=== PATIENT | female | born 1985 | race African-American/Black ===

== ENCOUNTER 2017-02-09 19:24 | Emergency (ER) | payer MEDICARE, MEDICAID ==
[2017-02-09] MEDS ORDERED: ASPIRIN 81 MG TABLET, CHEWABLE PO ONE (20:06)
--- NOTE | 2017-02-09 20:06 | ER Document Report ---
ED Medical Screen (RME) - General Stated Complaint: CHEST PAIN Time seen by provider: 20:04 Mode of Arrival: Wheelchair Information source: Patient Notes: 31-year-old female presents to ED for chest pain with numbness down her left arm since 6:15 tonight. She states she also has some shortness of breath and dizziness. Has a history of angina and anxiety. Last menstrual period 2016 I have greeted and performed a rapid initial assessment of this patient. A comprehensive ED assessment and evaluation of the patient, analysis of test results and completion of medical decision making process will be conducted by an additional ED providers. TRAVEL OUTSIDE OF THE [place] IN LAST 30 DAYS: No - Related Data Allergies/Adverse Reactions: zolpidem tartrate [From Ambien] Allergy (Mild, Verified 07/18/15 15:21) Abnormal behavior ciprofloxacin [From Cipro] Allergy (Verified 07/18/15 15:21) ciprofloxacin HCl [From Cipro] Allergy (Verified 07/18/15 15:21) citalopram [Citalopram] Allergy (Verified 07/18/15 15:21) escitalopram oxalate [From Lexapro] Allergy (Verified 07/18/15 15:21) lamotrigine [From Lamictal] Allergy (Verified 07/18/15 15:21) nitrofurantoin [From Macrobid] Allergy (Verified 07/18/15 15:21) nitrofurantoin macrocrystalline [From Macrobid] Allergy (Verified 07/18/15 15:21 ) Quinolones Allergy (Verified 07/18/15 15:21) ondansetron HCl [From Zofran] Adverse Reaction (Verified 07/18/15 15:21) CATS Allergy (Intermediate, Uncoded 07/18/15 15:21) SQUASH Allergy (Unknown, Uncoded 07/18/15 15:21) serotonin Allergy (Uncoded 07/18/15 15:21) Past Medical History - Past Medical History Cardiac Medical History: Reports: Hx Hypertension Pulmonary Medical History: Reports: Hx Asthma Neurological Medical History: Reports: Hx Migraine, Hx Seizures Endocrine Medical History: Reports: Hx Diabetes Mellitus Type 2 Renal/ Medical History: Reports: Hx Ovarian Cysts GI Medical History: Reports: Hx Gastroesophageal Reflux Disease Musculoskeltal Medical History: Reports Hx Arthritis, Reports Hx Musculoskeletal Trauma Psychiatric Medical History: Reports: Hx Anxiety, Hx Attention Deficit Hyperactivity Disorder, Hx Bipolar Disorder, Hx Depression, Hx Post Traumatic Stress Disorder Past Surgical History: Reports: Hx Abdominal Surgery - LAPARASCOPY X2, Hx Section - x2, Hx Gynecologic Surgery - 5 D&C ([place]IS[place]AGES), Hx Oral Surgery - Jaw for TMJ and wisdom teeth, Hx Tubal Ligation - Immunizations Immunizations up to date: Yes Hx Diphtheria, Pertussis, Tetanus Vaccination: Yes - MED
[2017-02-09 20:41] LABS: ABSOLUTE BASOPHILS # (AUTO) 0.1 10^3/uL (0.0-0.2); ABSOLUTE EOSINOPHILS # (AUTO) 0.1 10^3/uL (0.0-0.6); ABSOLUTE LYMPHOCYTES (AUTO) 2.3 10^3/uL (0.5-4.7); ABSOLUTE MONOCYTES (AUTO) 0.5 10^3/uL (0.1-1.4); ABSOLUTE NEUT (AUTO) 4.4 10^3/uL (1.7-8.2); BASOPHILS % (AUTO) 1.2 % (0-2); EOSINOPHILS % (AUTO) 1.6 % (0-6); HEMATOCRIT 35.3 % (36.0-47.0); HEMOGLOBIN 11.5 g/dL (12.0-15.5); HGB HCT DIFFERENCE -0.8; LYMPHOCYTES % (AUTO) 31.2 % (13-45); MEAN CORPUSCULAR HEMOGLOBIN 27.8 pg (27.0-33.4); MEAN CORPUSCULAR HGB CONC 32.7 g/dL (32.0-36.0); MEAN CORPUSCULAR VOLUME 85 fl (80-97); MONOCYTES % (AUTO) 6.2 % (3-13); RED BLOOD COUNT 4.15 10^6/uL (3.72-5.28); RED CELL DISTRIBUTION WIDTH 13.9 % (11.5-14.0); SEGMENTED NEUTROPHILS % (AUTO) 59.8 % (42-78); WHITE BLOOD COUNT 7.4 10^3/uL (4.0-10.5)
[2017-02-09 20:53] LABS: ALANINE AMINOTRANSFERASE 30 U/L (9-52); ALBUMIN 4.8 g/dL (3.5-5.0); ALKALINE PHOSPHATASE 65 U/L (38-126); ANION GAP 14 (5-19); ASPARTATE AMINO TRANSFERASE 22 U/L (14-36); BILIRUBIN,DIRECT 0.1 mg/dL (0.0-0.4); BILIRUBIN,TOTAL 0.2 mg/dL (0.2-1.3); BLOOD UREA NITROGEN 9 mg/dL (7-20); CALCIUM 10.7 mg/dL (8.4-10.2); CARBON DIOXIDE 27 mmol/L (22-30); CHLORIDE 101 mmol/L (98-107); CREATINE KINASE 74 U/L (30-135); CREATININE RESULT 0.52 mg/dL (0.52-1.25); GLUCOSE 104 mg/dL (75-110); MAGNESIUM 2.1 mg/dL (1.6-2.3); POTASSIUM 4.4 mmol/L (3.6-5.0); SODIUM 142.2 mmol/L (137-145); TOTAL PROTEIN 7.6 g/dL (6.3-8.2)
[2017-02-09 20:54] LABS: APPEARANCE,URINE CLOUDY; BILIRUBIN,URINE NEGATIVE (NEGATIVE); GLUCOSE, URINE NEGATIVE (NEGATIVE); KETONES,URINE NEGATIVE (NEGATIVE); LEUKOCYTE ESTERASE,URINE NEGATIVE (NEGATIVE); NITRITE,URINE NEGATIVE (NEGATIVE); PROTEIN,URINE NEGATIVE (NEGATIVE); URINE SPECIFIC GRAVITY 1.009; UROBILINOGEN,URINE NEGATIVE mg/dL (<2.0)
--- NOTE | 2017-02-09 20:57 | EKG REPORT ---
SEVERITY:- NORMAL ECG - SINUS RHYTHM : Confirmed by: Michele Robert 09-Feb-2017 20:57:09
[2017-02-09 21:06] LABS: URINE BARBITURATES SCREEN NEGATIVE; URINE METHADONE SCREEN NEGATIVE; URINE OPIATES LOW NEGATIVE; URINE PHENCYCLIDINE SCREEN NEGATIVE
[2017-02-09 21:07] LABS: CREATINE KINASE MB < 0.22 ng/mL (<4.55); TROPONIN I < 0.012 ng/mL
--- NOTE | 2017-02-09 22:42 | ER Document Report ---
ED General - General Chief Complaint: Chest Pain Stated Complaint: CHEST PAIN Mode of Arrival: Wheelchair Notes: Patient is a 30-year-old female with frequent recurring chest pain presents with concerns of left-sided chest pain and pain in her left arm. Does describe the pain as a dull, throbbing, constant pain. Nothing improves her pain. States moving the left arm worsens the pain in both her arm and chest. States this feels very similar to prior episodes of chest pain and diagnosed as benign recurrent chest discomfort. She has not seen her primary care doctor regarding today's concerns. She denies any associated nausea, vomiting, diaphoresis or shortness of breath. No history of DVT or pulmonary embolus. She does not use estrogen. TRAVEL OUTSIDE OF THE [place] IN LAST 30 DAYS: No - Related Data Allergies/Adverse Reactions: zolpidem tartrate [From Ambien] Allergy (Mild, Verified 07/18/15 15:21) Abnormal behavior ciprofloxacin [From Cipro] Allergy (Verified 07/18/15 15:21) ciprofloxacin HCl [From Cipro] Allergy (Verified 07/18/15 15:21) citalopram [Citalopram] Allergy (Verified 07/18/15 15:21) escitalopram oxalate [From Lexapro] Allergy (Verified 07/18/15 15:21) lamotrigine [From Lamictal] Allergy (Verified 07/18/15 15:21) nitrofurantoin [From Macrobid] Allergy (Verified 07/18/15 15:21) nitrofurantoin macrocrystalline [From Macrobid] Allergy (Verified 07/18/15 15:21 ) Quinolones Allergy (Verified 07/18/15 15:21) ondansetron HCl [From Zofran] Adverse Reaction (Verified 07/18/15 15:21) CATS Allergy (Intermediate, Uncoded 07/18/15 15:21) SQUASH Allergy (Unknown, Uncoded 07/18/15 15:21) serotonin Allergy (Uncoded 07/18/15 15:21) Past Medical History - General Information source: Patient - Social History Smoking Status: Never Smoker Chew tobacco use (# tins/day): No Frequency of alcohol use: Occasional Drug Abuse: None Lives with: Spouse/Significant other Family History: Arthritis, CAD, CVA, DM, Hyperlipidemia, Hypertension, Malignancy, Other - mental health issues Patient has suicidal ideation: No Patient has homicidal ideation: No - Past Medical History Cardiac Medical History: Reports: Hx Hypertension Pulmonary Medical History: Reports: Hx Asthma Neurological Medical History: Reports: Hx Migraine, Hx Seizures Endocrine Medical History: Reports: Hx Diabetes Mellitus Type 2 Renal/ Medical History: Reports: Hx Ovarian Cysts. Denies: Hx Peritoneal Dialysis GI Medical History: Reports: Hx Gastroesophageal Reflux Disease Musculoskeltal Medical History: Reports Hx Arthritis, Reports Hx Musculoskeletal Trauma Psychiatric Medical History: Reports: Hx Anxiety, Hx Attention Deficit Hyperactivity Disorder, Hx Bipolar Disorder, Hx Depression, Hx Post Traumatic Stress Disorder Past Surgical History: Reports: Hx Abdominal Surgery - LAPARASCOPY X2, Hx Section - x2, Hx Gynecologic Surgery - 5 D&C ([place]IS[place]), Hx Oral Surgery - Jaw for TMJ and wisdom teeth, Hx Tubal Ligation - Immunizations Immunizations up to date: Yes Hx Diphtheria, Pertussis, Tetanus Vaccination: Yes - UTD Hx Pneumococcal Vaccination: 11/13/13 Review of Systems - Review of Systems Notes: Constitutional: Negative for fever. HENT: Negative for sore throat. Eyes: Negative for visual changes. Cardiovascular: Positive for chest pain. Respiratory: Negative for shortness of breath. Gastrointestinal: Negative for abdominal pain, vomiting or diarrhea. Genitourinary: Negative for dysuria. Musculoskeletal: Negative for back pain. Skin: Negative for rash. Neurological: Negative for headaches, weakness or numbness. 10 point ROS negative except as marked above and in HPI. Physical Exam - Vital signs Vitals: Resp 17 02/09/17 21:04 Interpretation: Normal Notes: PHYSICAL EXAMINATION: GENERAL: Well-appearing, well-nourished and in no acute distress. HEAD: Atraumatic, normocephalic. EYES: Pupils equal round and reactive to light, extraocular movements intact, sclera anicteric, conjunctiva are normal. ENT: nares patent, oropharynx clear without exudates. Moist mucous membranes. NECK: Normal range of motion, supple without lymphadenopathy LUNGS: Breath sounds clear to auscultation bilaterally and equal. No wheezes rales or rhonchi. HEART: Regular rate and rhythm without murmurs ABDOMEN: Soft, nontender, normoactive bowel sounds. No guarding, no rebound. No masses appreciated. Chest wall: Pain on palpation of the left central chest wall EXTREMITIES: Chest wall pain and left arm pain is reproduced by abduction and internal rotation of the left extremity NEUROLOGICAL: No focal neurological deficits. Moves all extremities spontaneously and on command. PSYCH: Normal mood, normal affect. SKIN: Warm, Dry, normal turgor, no rashes or lesions noted. Course - Re-evaluation Re-evalutation: 02/09/17 22:39 Presentation of chest pain in an otherwise well appearing patient. Low clinical suspicion for ACS given clinical history, exam, EKG without ST elevations or depressions, and negative troponin. Chest pain is reproducible on exam and patient has had very similar presentations in the past on multiple occasions. HEART score less than or equal to 3. PE also seems unlikely given clinical history, absence of tachycardia or dyspnea. Patient is PERC criteria negative. CXR without evidence of pneumothorax or pneumonia. No widened mediastinum. Aortic dissection also seems unlikely given history, symmetric pulses, CXR, and vitals. HEART Score: History:0 EC Age:0 Risk Factors:0 Troponin:0 Total: 0 Final assessment: Chest pain in a patient without evidence of cardiac or other serious etiology on workup today. I discussed with patient that, based on their age, risk factors and emergency department testing today, the likelihood that their symptoms are related to a heart attack is very low (estimated risk of heart attack or over the next 30 days of less than 1%). The patient demonstrates decision making capacity and has verbalized an understanding of these risks to me. Based on this, the patient has chosen to follow-up as an outpatient. Usual chest pain return precautions reviewed. The patient states understanding and agreement with this plan. - Vital Signs Vital signs: Temp Pulse Resp BP Pulse Ox 97 20 108/71 98 02/09/17 22:50 02/09/17 22:50 02/09/17 22:50 02/09/17 22:50 - Laboratory Result Diagrams: 02/09/17 20:15 02/09/17 20:15 Laboratory results interpreted by me: 02/09/17 02/09/17 20:15 20:15 Hgb 11.5 L Hct 35.3 L Calcium 10.7 H - Diagnostic Test Radiology reviewed: Image reviewed, Reports reviewed Radiology results interpreted by me: 02/09/17 22:41 Chest x-ray: No acute infiltrate - EKG Interpretation by Me Additional EKG results interpreted by me: 02/09/17 22:41 NSR. Rate 92. Qtc 431. No ST elevations or depressions. Discharge - Discharge Clinical Impression: Chest pain Qualifiers: Chest pain type: unspecified Qualified Code(s): R07.9 - Chest pain, unspecified Condition: Good Disposition: HOME, SELF-CARE Additional Instructions: You were seen today for chest pain. The exact cause of your pain is unclear. However, based on your cardiac enzyme testing, chest x-ray, and EKG it does not appear that it is from an immediately life-threatening cause at this time. Although your testing here is normal is critical that you follow-up with your primary care physician for continued evaluation of this chest pain and possible stress testing. I recommended you see your physician within the next 24-48 hours to be evaluated for consideration of a stress test. Please return to emergency department immediately if you have worsening of your chest pain, shortness of breath, vomiting, become unable to exert yourself due to pain or difficulty breathing, you pass out, or have any pain that radiates into your arms, jaw, or back. Please also return if you have any additional symptoms that are concerning to you.
[2017-02-09 22:52] VITALS: BP 108/71
== END 2017-02-09 22:52 | disposition home or self-care (01) ==
LOC: ER 19:24
DX: R07.89 Other chest pain (principal); M79.602 Pain in left arm; I10 Essential (primary) hypertension; J45.909 Unspecified asthma, uncomplicated; E11.9 Type 2 diabetes mellitus without complications; Z82.49 Family history of ischemic heart disease and other diseases of the circulatory system; Z88.8 Allergy status to other drugs, medicaments and biological substances; Z88.1 Allergy status to other antibiotic agents; Z91.013 Allergy to seafood; Z91.048 Other nonmedicinal substance allergy status
CPT/HCPCS: 93005; 99285; 36415; 82553; 82550; 83735; 84703; 85025; 80053; 81001; 84484; 80307; 71020; 93010; A9270

== ENCOUNTER 2017-03-10 18:47 | Emergency (ER) | payer MEDICARE, MEDICAID ==
--- NOTE | 2017-03-10 19:56 | ER Document Report ---
ED Medical Screen (RME) - General TRAVEL OUTSIDE OF THE [place] IN LAST 30 DAYS: No - General Chief Complaint: Jaw Pain Stated Complaint: JAW PAIN - Related Data Allergies/Adverse Reactions: zolpidem tartrate [From Ambien] Allergy (Mild, Verified 03/10/17 19:11) Abnormal behavior ciprofloxacin [From Cipro] Allergy (Verified 03/10/17 19:11) ciprofloxacin HCl [From Cipro] Allergy (Verified 03/10/17 19:11) citalopram [Citalopram] Allergy (Verified 03/10/17 19:11) escitalopram oxalate [From Lexapro] Allergy (Verified 03/10/17 19:11) lamotrigine [From Lamictal] Allergy (Verified 03/10/17 19:11) nitrofurantoin [From Macrobid] Allergy (Verified 03/10/17 19:11) nitrofurantoin macrocrystalline [From Macrobid] Allergy (Verified 03/10/17 19:11 ) Quinolones Allergy (Verified 03/10/17 19:11) ondansetron HCl [From Zofran] Adverse Reaction (Verified 03/10/17 19:11) CATS Allergy (Intermediate, Uncoded 03/10/17 19:11) SQUASH Allergy (Unknown, Uncoded 03/10/17 19:11) serotonin Allergy (Uncoded 03/10/17 19:11) Past Medical History - Social History Chew tobacco use (# tins/day): No Frequency of alcohol use: None Drug Abuse: None - Past Medical History Cardiac Medical History: Reports: Hx Hypertension Pulmonary Medical History: Reports: Hx Asthma Neurological Medical History: Reports: Hx Migraine, Hx Seizures Endocrine Medical History: Reports: Hx Diabetes Mellitus Type 2 Renal/ Medical History: Reports: Hx Ovarian Cysts. Denies: Hx Peritoneal Dialysis GI Medical History: Reports: Hx Gastroesophageal Reflux Disease Musculoskeltal Medical History: Reports Hx Arthritis, Reports Hx Musculoskeletal Trauma Psychiatric Medical History: Reports: Hx Anxiety, Hx Attention Deficit Hyperactivity Disorder, Hx Bipolar Disorder, Hx Depression, Hx Post Traumatic Stress Disorder Past Surgical History: Reports: Hx Abdominal Surgery - LAPARASCOPY X2, Hx Section - x2, Hx Gynecologic Surgery - 5 D&C ([place]), Hx Oral Surgery - Jaw for TMJ and wisdom teeth, Hx Tubal Ligation - Immunizations Immunizations up to date: Yes Hx Diphtheria, Pertussis, Tetanus Vaccination: Yes - UTD Course - Re-evaluation Re-evalutation: 03/10/17 20:00 Patient presents emergency Department chief complaint of clenched jaw. She says she is unable to open her mouth and her significant other speaks for her. Said she has recurrent syncopal events and lastly she fell onto her face and he found her in the room. She has a little bit a contusion to left forehead. 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 He says she's been drinking but sucking it through her teeth. Patient also with a history of bipolar multiple allergies. She is awake alert with a GCS of 15 all communication is through the she is maintaining her own airway without any difficulty T 30 gather and she refuses to open them any further. She does take a drink and sucking are 3 teeth. There is no bilateral tenderness deformity or obvious dislocation a small contusion to her left forehead no neurological deficits heart lungs and abdomen is soft. At this time the patient is maintaining her own airway because of the syncopal event will work her up for syncope CT her head and her neck and her facial area. She's getting into bed and the back for further evaluation and disposition. I personally performed the services described in the documentation reviewed the documentation recorded by the scribe in my presence and it accurately incompletely records my words and actions (NISHA FISH) - Vital Signs Vital signs: Temp Pulse Resp BP Pulse Ox 91 16 121/71 98 03/10/17 19:11 03/10/17 19:11 03/10/17 19:11 03/10/17 19:11
[2017-03-10] MEDS ORDERED: DIPHENHYDRAMINE HCL 50 MG/ML VIAL IV ONE (21:10)
[2017-03-10] MEDS ORDERED: DIAZEPAM INJ 10 MG/2 ML DISP.SYRIN IV ONE (21:10)
--- NOTE | 2017-03-10 21:12 | ER Document Report ---
ED General - General Chief Complaint: Jaw Pain Stated Complaint: JAW PAIN Time seen by provider: 21:11 Notes: Patient is a 31-year-old female that comes emergency department for chief complaint of pain in her jaw on the left side extending up to her hindu with inability to open her jaw. Patient states she on prior to arrival and has been having a sharp pain and inability to open her jaw since that time. Patient states this happened about a year ago and has happened multiple times in the past. States she sees a dentist and they discussed TMJ surgery for her because of this but no procedures have been performed yet. Patient denies trauma to the area, significant other does state that patient had a syncopal event yesterday where she was standing and suddenly fell on the ground, she was able to be aroused and was acting normally the rest of the night and until today. He states that she has had syncopal events in the past when she becomes stressed and she was upset at the time. No fevers, no other symptoms reported. TRAVEL OUTSIDE OF THE [place] IN LAST 30 DAYS: No - Related Data Allergies/Adverse Reactions: zolpidem tartrate [From Ambien] Allergy (Mild, Verified 03/10/17 19:11) Abnormal behavior ciprofloxacin [From Cipro] Allergy (Verified 03/10/17 19:11) ciprofloxacin HCl [From Cipro] Allergy (Verified 03/10/17 19:11) citalopram [Citalopram] Allergy (Verified 03/10/17 19:11) escitalopram oxalate [From Lexapro] Allergy (Verified 03/10/17 19:11) lamotrigine [From Lamictal] Allergy (Verified 03/10/17 19:11) nitrofurantoin [From Macrobid] Allergy (Verified 03/10/17 19:11) nitrofurantoin macrocrystalline [From Macrobid] Allergy (Verified 03/10/17 19:11 ) Quinolones Allergy (Verified 03/10/17 19:11) ondansetron HCl [From Zofran] Adverse Reaction (Verified 03/10/17 19:11) CATS Allergy (Intermediate, Uncoded 03/10/17 19:11) SQUASH Allergy (Unknown, Uncoded 03/10/17 19:11) serotonin Allergy (Uncoded 03/10/17 19:11) Past Medical History - General Information source: Patient - Social History Smoking Status: Never Smoker Chew tobacco use (# tins/day): No Frequency of alcohol use: None Drug Abuse: None Lives with: Family Family History: Arthritis, CAD, CVA, DM, Hyperlipidemia, Hypertension, Malignancy, Other - mental health issues Patient has suicidal ideation: No Patient has homicidal ideation: No - Past Medical History Cardiac Medical History: Reports: Hx Hypertension Pulmonary Medical History: Reports: Hx Asthma Neurological Medical History: Reports: Hx Migraine, Hx Seizures Endocrine Medical History: Reports: Hx Diabetes Mellitus Type 2 Renal/ Medical History: Reports: Hx Ovarian Cysts. Denies: Hx Peritoneal Dialysis GI Medical History: Reports: Hx Gastroesophageal Reflux Disease Musculoskeltal Medical History: Reports Hx Arthritis, Reports Hx Musculoskeletal Trauma Psychiatric Medical History: Reports: Hx Anxiety, Hx Attention Deficit Hyperactivity Disorder, Hx Bipolar Disorder, Hx Depression, Hx Post Traumatic Stress Disorder Past Surgical History: Reports: Hx Abdominal Surgery - LAPARASCOPY X2, Hx Section - x2, Hx Gynecologic Surgery - 5 D&C ([place]IS[place]), Hx Oral Surgery - Jaw for TMJ and wisdom teeth, Hx Tubal Ligation - Immunizations Immunizations up to date: Yes Hx Diphtheria, Pertussis, Tetanus Vaccination: Yes - UTD Hx Pneumococcal Vaccination: 11/13/13 Review of Systems - Review of Systems Constitutional: No symptoms reported EENT: See HPI Cardiovascular: No symptoms reported Respiratory: No symptoms reported Gastrointestinal: No symptoms reported Genitourinary: No symptoms reported Female Genitourinary: No symptoms reported Musculoskeletal: No symptoms reported Skin: No symptoms reported Hematologic/Lymphatic: No symptoms reported Neurological/Psychological: No symptoms reported Physical Exam - Vital signs Vitals: Pulse Resp BP Pulse Ox 91 16 121/71 98 03/10/17 19:11 03/10/17 19:11 03/10/17 19:11 03/10/17 19:11 Interpretation: Normal - General General appearance: Anxious In distress: Moderate - Patient not able to open her jaw, appears to be in some pain, appears to be slightly anxious - HEENT Head: Normocephalic, Atraumatic Eyes: Normal Conjunctiva: Normal Extraocular movements intact: Yes Eyelashes: Normal Pupils: PERRL Sinus: Normal Nasal: Normal Mouth/Lips: Other - Tenderness over the left TMJ and extending down into the mastication muscles on the left side of the jaw. No abnormal heat, erythema, or other abnormality noted to the area Mucous membranes: Normal Pharynx: Normal - Respiratory Respiratory status: No respiratory distress Chest status: Nontender Breath sounds: Normal Chest palpation: Normal - Cardiovascular Rhythm: Regular Heart sounds: Normal auscultation Murmur: No - Abdominal Inspection: Normal Distension: No distension Bowel sounds: Normal Tenderness: Nontender Organomegaly: No organomegaly - Back Back: Normal, Nontender - Extremities General upper extremity: Normal inspection, Nontender, Normal color, Normal ROM , Normal temperature General lower extremity: Normal inspection, Nontender, Normal color, Normal ROM , Normal temperature, Normal weight bearing. No: Coty's sign - Neurological Neuro grossly intact: Yes Cognition: Normal Orientation: AAOx4 Jovon Coma Scale Eye Opening: Spontaneous [place] Coma Scale Verbal: Oriented [place] Coma Scale Motor: Obeys Commands Jovon Coma Scale Total: 15 Speech: Normal Motor strength normal: LUE, RUE, LLE, RLE Sensory: Normal - Psychological Associated symptoms: Anxious - Skin Skin Temperature: Warm Skin Moisture: Dry Skin Color: Normal Course - Re-evaluation Re-evalutation: Patient very difficult to get IV access on, has very small peripheral veins, neck folds. Declining additional poking including for labs. Initial medications given IM. Patient with no relief despite these medications. Eventually able to get a small IV, began IV medications, after IV medications patient did begin to improve, she is now able to speak but can still barely open her mouth. On reevaluation patient again improved minimally. Patient states she feels she is improving, pain is much reduced, she feels much better. Review of previous records show that patient has been here for the same multiple times, she has required multiple doses of medications including Valium and Dilaudid before improving enough to go home, patient confirms that after this and going home she has been much improved, patient has not had this in over a year. 03/11/17 Patient reevaluated again, she can now open her jaw about 1.5 cm, she is talking without pain, she is smiling and states she feels much better. Patient able to take a pill, able to drink, states she is ready to go home at this point. Referring to oral maxillary facial surgery, recommended she follow-up with him very closely, providing with Valium for muscle spasm at home, discussed return precautions, patient and family state understanding and agreement. - Vital Signs Vital signs: Temp Pulse Resp BP Pulse Ox 97.6 F 91 22 H 115/71 100 03/11/17 02:00 03/10/17 19:11 03/11/17 01:01 03/11/17 01:01 03/11/17 01:01 Discharge - Discharge Clinical Impression: Jaw pain, Muscle spasm Temporomandibular joint pain Qualifiers: Laterality: left Qualified Code(s): M26.622 - Arthralgia of left temporomandibular joint Condition: Stable Disposition: HOME, SELF-CARE Additional Instructions: Take the Valium as prescribed as a muscle relaxer for your jaw. I recommend fluids and drinking initially. Do not chew until your jaw muscles are completely relaxed, afterwards start on soft diet, avoid gum. Follow-up closely with oral maxillary facial surgery referral. Return to emergency department for concerning symptoms. Prescriptions: Acetaminophen with Codeine [Tylenol #3 Tablet] 1 each PO Q4HP PRN #15 tablet PRN Reason: Diazepam [Valium 5 mg Tablet] 1 - 2 tab PO TID #20 tablet Referrals: FAMILIA BERMUDEZ D[facility] [ACTIVE STAFF] - 03/13/17
[2017-03-10 21:16] LABS: APPEARANCE,URINE CLEAR; BILIRUBIN,URINE NEGATIVE (NEGATIVE); GLUCOSE, URINE NEGATIVE (NEGATIVE); KETONES,URINE NEGATIVE (NEGATIVE); LEUKOCYTE ESTERASE,URINE NEGATIVE (NEGATIVE); NITRITE,URINE NEGATIVE (NEGATIVE); PROTEIN,URINE NEGATIVE (NEGATIVE); URINE SPECIFIC GRAVITY 1.008; UROBILINOGEN,URINE NEGATIVE mg/dL (<2.0)
[2017-03-10] MEDS ORDERED: DIPHENHYDRAMINE HCL 50 MG CAPSULE PO ONE (22:28)
[2017-03-10] MEDS ORDERED: DIAZEPAM INJ 10 MG/2 ML DISP.SYRIN IM ONE (22:28)
[2017-03-10] MEDS ORDERED: DIPHENHYDRAMINE HCL 50 MG/ML VIAL IM ONE (22:49)
[2017-03-10] MEDS ORDERED: HYDROMORPHONE HCL INJ/PF 2 MG/ML AMPULE IM ONE (23:18)
[2017-03-11] MEDS ORDERED: DIAZEPAM INJ 10 MG/2 ML DISP.SYRIN IV ONE ×2 (00:18→02:23)
[2017-03-11] MEDS ORDERED: HYDROMORPHONE HCL INJ/PF 2 MG/ML AMPULE IV ONE (01:05)
[2017-03-11] MEDS ORDERED: DIPHENHYDRAMINE HCL 50 MG/ML VIAL IV ONE (01:26)
[2017-03-11] MEDS ORDERED: PROMETHAZINE HCL 25 MG TABLET PO ONE (03:48)
[2017-03-11 04:13] VITALS: BP 110/76
--- NOTE | 2017-03-11 09:46 | EKG REPORT ---
SEVERITY:- NORMAL ECG - SINUS RHYTHM : Confirmed by: Michele Robert 11-Mar-2017 09:45:20
== END 2017-03-11 04:10 | disposition home or self-care (01) ==
LOC: ER 18:47
DX: M26.622 Arthralgia of left temporomandibular joint (principal); M62.838 Other muscle spasm; R55 Syncope and collapse; F41.9 Anxiety disorder, unspecified; E11.9 Type 2 diabetes mellitus without complications; I10 Essential (primary) hypertension; J45.909 Unspecified asthma, uncomplicated; Z88.8 Allergy status to other drugs, medicaments and biological substances; Z88.1 Allergy status to other antibiotic agents; Z91.018 Allergy to other foods; Z91.048 Other nonmedicinal substance allergy status
CPT/HCPCS: 93005; 96376; 99284; 96372; 96374; 96375; 81025; 81001; 71010; 70450; 70486; 72125; 93010; J3360 ×2; J1200; J1170 ×2; A9270

== ENCOUNTER 2017-04-21 19:33 | Emergency (ER) | payer MEDICARE, MEDICAID ==
[2017-04-21] MEDS ORDERED: DIPHENHYDRAMINE HCL 50 MG CAPSULE PO ONE (20:26)
[2017-04-21] MEDS ORDERED: PROCHLORPERAZINE MALEATE 10 MG TABLET PO ONE (20:26)
[2017-04-21] MEDS ORDERED: KETOROLAC TROMETHAMINE 60 MG/2 ML SDV IM ONE (20:27)
--- NOTE | 2017-04-21 20:29 | ER Document Report ---
ED Medical Screen (RME) - General Chief Complaint: Headache Stated Complaint: SEVERE HEAD PAIN Time Seen by Provider: 04/21/17 20:19 Notes: 32-year-old female patient long history of migraine headaches, reports onset at 6:50 PM today of severe head pain with loss of sight, sound, and smell. The loss of the since this has occurred twice since the headache started. At this time she has photophobia. She states this is worse than and not like her normal migraine. Other migraine visits have also been documented as stating the symptoms were not like her normal migraine. I have greeted and performed a rapid initial assessment of this patient. A comprehensive ED assessment and evaluation of the patient, analysis of test results and completion of the medical decision making process will be conducted by additional ED providers. TRAVEL OUTSIDE OF THE [place] IN LAST 30 DAYS: No - Related Data Allergies/Adverse Reactions: zolpidem tartrate [From Ambien] Allergy (Mild, Verified 03/10/17 19:11) Abnormal behavior ciprofloxacin [From Cipro] Allergy (Verified 03/10/17 19:11) ciprofloxacin HCl [From Cipro] Allergy (Verified 03/10/17 19:11) citalopram [Citalopram] Allergy (Verified 03/10/17 19:11) escitalopram oxalate [From Lexapro] Allergy (Verified 03/10/17 19:11) lamotrigine [From Lamictal] Allergy (Verified 03/10/17 19:11) nitrofurantoin [From Macrobid] Allergy (Verified 03/10/17 19:11) nitrofurantoin macrocrystalline [From Macrobid] Allergy (Verified 03/10/17 19:11 ) Quinolones Allergy (Verified 03/10/17 19:11) ondansetron HCl [From Zofran] Adverse Reaction (Verified 03/10/17 19:11) CATS Allergy (Intermediate, Uncoded 03/10/17 19:11) SQUASH Allergy (Unknown, Uncoded 03/10/17 19:11) serotonin Allergy (Uncoded 03/10/17 19:11) Past Medical History - Social History Chew tobacco use (# tins/day): No Frequency of alcohol use: Rare Drug Abuse: None - Past Medical History Cardiac Medical History: Reports: Hx Hypertension Pulmonary Medical History: Reports: Hx Asthma Neurological Medical History: Reports: Hx Migraine, Hx Seizures Endocrine Medical History: Reports: Hx Diabetes Mellitus Type 2 Renal/ Medical History: Reports: Hx Ovarian Cysts. Denies: Hx Peritoneal Dialysis GI Medical History: Reports: Hx Gastroesophageal Reflux Disease Musculoskeltal Medical History: Reports Hx Arthritis, Reports Hx Musculoskeletal Trauma Psychiatric Medical History: Reports: Hx Anxiety, Hx Attention Deficit Hyperactivity Disorder, Hx Bipolar Disorder, Hx Depression, Hx Post Traumatic Stress Disorder Past Surgical History: Reports: Hx Abdominal Surgery - LAPARASCOPY X2, Hx Section - x2, Hx Gynecologic Surgery - 5 D&C (MISCARRIAGES), Hx Oral Surgery - Jaw for TMJ and wisdom teeth, Hx Tubal Ligation - Immunizations Immunizations up to date: Yes Hx Diphtheria, Pertussis, Tetanus Vaccination: Yes - UTD Physical Exam - Vital signs Vitals: Temp Pulse Resp BP Pulse Ox 98.2 F 100 18 127/75 H 97 04/21/17 20:08 04/21/17 20:08 04/21/17 20:08 04/21/17 20:08 04/21/17 20:08 Course - Vital Signs Vital signs: Temp Pulse Resp BP Pulse Ox 98.2 F 100 18 127/75 H 97 04/21/17 20:08 04/21/17 20:08 04/21/17 20:08 04/21/17 20:08 04/21/17 20:08
[2017-04-22] MEDS ORDERED: PROCHLORPERAZINE EDISYLATE INJ 10 MG/2 ML VIAL IV ONE
--- NOTE | 2017-04-22 | ER Document Report ---
ED General - General Chief Complaint: Headache Stated Complaint: SEVERE HEAD PAIN Time Seen by Provider: 04/21/17 20:19 Notes: Patient is a 32-year-old female with past medical history of bipolar disorder, PTSD, chronic migraine headaches who presents with 6-10 hours of progressively worsening head pain. Describes it as a constant constant, throbbing, aching pain. Notes that light and sound worsen her pain. Notes that she intimately has brief episodes in which she can no longer hear or see anything but these do resolve spontaneously after approximately 10 seconds. She is uncertain if she has had similar headaches in the past but notes that she has had headaches of similar intensity. The headache was gradual in onset and has become progressively worse since starting. She has not seen her primary care doctor regarding today's concerns. She did try [id number] medications without any relief of her headache. TRAVEL OUTSIDE OF THE [place] IN LAST 30 DAYS: No - Related Data Allergies/Adverse Reactions: zolpidem tartrate [From Ambien] Allergy (Mild, Verified 03/10/17 19:11) Abnormal behavior ciprofloxacin [From Cipro] Allergy (Verified 03/10/17 19:11) ciprofloxacin HCl [From Cipro] Allergy (Verified 03/10/17 19:11) citalopram [Citalopram] Allergy (Verified 03/10/17 19:11) escitalopram oxalate [From Lexapro] Allergy (Verified 03/10/17 19:11) lamotrigine [From Lamictal] Allergy (Verified 03/10/17 19:11) nitrofurantoin [From Macrobid] Allergy (Verified 03/10/17 19:11) nitrofurantoin macrocrystalline [From Macrobid] Allergy (Verified 03/10/17 19:11 ) Quinolones Allergy (Verified 03/10/17 19:11) ondansetron HCl [From Zofran] Adverse Reaction (Verified 03/10/17 19:11) CATS Allergy (Intermediate, Uncoded 03/10/17 19:11) SQUASH Allergy (Unknown, Uncoded 03/10/17 19:11) serotonin Allergy (Uncoded 03/10/17 19:11) Past Medical History - General Information source: Patient - Social History Smoking Status: Never Smoker Chew tobacco use (# tins/day): No Frequency of alcohol use: Rare Drug Abuse: None Lives with: Spouse/Significant other Family History: Arthritis, CAD, CVA, DM, Hyperlipidemia, Hypertension, Malignancy, Other - mental health issues Patient has suicidal ideation: No Patient has homicidal ideation: No - Past Medical History Cardiac Medical History: Reports: Hx Hypertension Pulmonary Medical History: Reports: Hx Asthma Neurological Medical History: Reports: Hx Migraine, Hx Seizures Endocrine Medical History: Reports: Hx Diabetes Mellitus Type 2 Renal/ Medical History: Reports: Hx Ovarian Cysts. Denies: Hx Peritoneal Dialysis GI Medical History: Reports: Hx Gastroesophageal Reflux Disease Musculoskeltal Medical History: Reports Hx Arthritis, Reports Hx Musculoskeletal Trauma Psychiatric Medical History: Reports: Hx Anxiety, Hx Attention Deficit Hyperactivity Disorder, Hx Bipolar Disorder, Hx Depression, Hx Post Traumatic Stress Disorder Past Surgical History: Reports: Hx Abdominal Surgery - LAPARASCOPY X2, Hx Section - x2, Hx Gynecologic Surgery - 5 D&C (MISCARRIAGES), Hx Oral Surgery - Jaw for TMJ and wisdom teeth, Hx Tubal Ligation - Immunizations Immunizations up to date: Yes Hx Diphtheria, Pertussis, Tetanus Vaccination: Yes - UTD Hx Pneumococcal Vaccination: 11/13/13 Review of Systems - Review of Systems Notes: Constitutional: Negative for fever. HENT: Negative for sore throat. Eyes: Negative for visual changes. Cardiovascular: Negative for chest pain. Respiratory: Negative for shortness of breath. Gastrointestinal: Negative for abdominal pain, vomiting or diarrhea. Genitourinary: Negative for dysuria. Musculoskeletal: Negative for back pain. Skin: Negative for rash. Neurological: Positive for headaches, negative for weakness or numbness. 10 point ROS negative except as marked above and in HPI. Physical Exam - Vital signs Vitals: Temp Pulse Resp BP Pulse Ox 98.2 F 100 18 127/75 H 97 04/21/17 20:08 04/21/17 20:08 04/21/17 20:08 04/21/17 20:08 04/21/17 20:08 Interpretation: Normal Notes: PHYSICAL EXAMINATION: GENERAL: Well-appearing, well-nourished and in no acute distress. HEAD: Atraumatic, normocephalic. EYES: Pupils equal round and reactive to light, extraocular movements intact, sclera anicteric, conjunctiva are normal. ENT: nares patent, oropharynx clear without exudates. Moist mucous membranes. NECK: Normal range of motion, supple without lymphadenopathy LUNGS: Breath sounds clear to auscultation bilaterally and equal. No wheezes rales or rhonchi. HEART: Regular rate and rhythm without murmurs ABDOMEN: Soft, nontender, normoactive bowel sounds. No guarding, no rebound. No masses appreciated. EXTREMITIES: Normal range of motion, no pitting or edema. No cyanosis. NEUROLOGICAL: Face symmetric. Tongue protrudes midline. Extraocular motions intact. Pupils are 2 mm and equally reactive. Normal speech, normal gait. 5 out of 5 strength in both the distal and proximal upper and lower extremities bilaterally. Sensation is grossly intact throughout. Finger to nose testing normal. Pronator drift normal. PSYCH: Normal mood, normal affect. SKIN: Warm, Dry, normal turgor, no rashes or lesions noted. Course - Re-evaluation Re-evalutation: 04/22/17 00:00 Presentation of a headache that appears to be most consistent with tension versus migrainous type headache. Headache was not maximal in onset, patient has no focal neurologic deficits, no nuchal rigidity, vital signs within normal limits, no papilledema, and patient is overall well in appearance. Based on clinical history and examination I do not suspect an acute subarachnoid hemorrhage, dural venous sinus thrombosis, acute meningitis, or intercranial mass. Given my low clinical suspicion for any acute life-threatening etiology, I do not feel advanced neuro imaging or laboratory testing is indicated at this time. Will proceed with headache cocktail and reassess. 04/22/17 02:27 Patient has had complete resolution of her headache at this time. Remains without any neurologic. At this time will discharge with return precautions and follow-up recommendations. Verbal discharge instructions given a the bedside and opportunity for questions given. Medication warnings reviewed. Patient is in agreement with this plan and has verbalized understanding of return precautions and the need for primary care follow-up in the next 24-72 hours. - Vital Signs Vital signs: Temp Pulse Resp BP Pulse Ox 98.2 F 89 20 108/58 L 98 04/21/17 20:08 04/22/17 01:30 04/22/17 01:30 04/22/17 01:30 04/22/17 01:30 Discharge - Discharge Clinical Impression: Migraine headache Qualifiers: Migraine type: unspecified Status migrainosus presence: with status migrainosus Intractability: not intractable Qualified Code(s): G43.901 - Migraine, unspecified, not intractable, with status migrainosus Condition: Good Disposition: HOME, SELF-CARE Additional Instructions: You were seen today for a migraine headache. Please follow-up with your primary care doctor regarding today's ED visit. Return to emergency department immediately if you develop a headache that gets to its maximum severity within 20 minutes of onset, you pass out, you develop weakness, numbness, changes in your vision, become unable to keep any fluids down for more than 12 hours, or develop a fever greater than 100.4 degrees Fahrenheit. If you develop a similar migraine headache in the future I recommend that you immediately take 600 mg of ibuprofen and 50 mg of Benadryl and go to sleep as quickly as possible. This can often prevent your migraine headache from becoming severe. Referrals: SALEEM WESTON, [employer]ATOR[facility] [Primary Care Provider] - Follow up as needed
[2017-04-22] MEDS ORDERED: HALOPERIDOL LACTATE INJ 5 MG/1 ML VIAL IV ONE ×2 (01:16)
[2017-04-22] MEDS ORDERED: LORAZEPAM INJ 2 MG/1 ML VIAL IV ONE (01:17)
[2017-04-22 03:13] VITALS: BP 102/57
== END 2017-04-22 03:12 | disposition home or self-care (01) ==
LOC: ER 19:33
DX: G43.901 Migraine, unspecified, not intractable, with status migrainosus (principal); F31.9 Bipolar disorder, unspecified; F43.10 Post-traumatic stress disorder, unspecified
CPT/HCPCS: 96376; 99283; 96372; 96374; 96375; A9270 ×2; J1885; J1630; J2060; J0780; S0183

== ENCOUNTER → 2017-04-24 | Outpatient (CLI) | payer MEDICARE, MEDICAID ==
--- NOTE | 2017-04-24 13:24 | RADIOLOGY REPORT (SQ) ---
EXAM DESCRIPTION: MRI HEAD COMBO COMPLETED DATE/TIME: 04/24/2017 9:50 am REASON FOR STUDY: SEIZURES, HEADACHES R56.9 UNSPECIFIED CONVULSIONS R51 HEADACHE COMPARISON: Brain CT scan dated 03/10/2017 and MRI of the brain dated April 2015 TECHNIQUE: Multiplanar imaging includes noncontrasted T1, T2, FLAIR, diffusion with ADC map and post gadolinium contrast T1 sequences. Images stored on PACS. CONTRAST TYPE AND DOSE: 15 mL MultiHance RENAL FUNCTION: None required. The patient is less than 50 years old. LIMITATIONS: None. FINDINGS: ANATOMY: No anomalies. Normal vascular flow voids. Pituitary fossa normal. CSF SPACES: Normal in size and contour. No hemorrhage. CEREBRUM: Sulci and gyri normal in size and contour. Normal white matter signal on FLAIR imaging. No evidence of hemorrhage, mass, or extraaxial fluid collection. No abnormal enhancement post contrast. POSTERIOR FOSSA: No signal alteration. No hemorrhage. No edema, masses, or mass effect. Internal curry tory canals, cerebellopontine angles, mastoids normal. No enhancing lesions. No abnormal enhancement post contrast. DIFFUSION IMAGING: Negative for acute or subacute infarction. ORBITS: No masses. Globes normal. PARANASAL SINUSES: No fluid levels. Mucosa normal. OTHER: No other significant finding. IMPRESSION: NORMAL MRI OF THE BRAIN WITHOUT AND WITH INTRAVENOUS GADOLINIUM CONTRAST. TECHNICAL DOCUMENTATION: JOB ID: [id number]- All Rights Reserved
== END ==
LOC: RAD 08:27
PROVIDERS: ATTEND Specialist
DX: R56.9 Unspecified convulsions (principal); R51 Headache
CPT/HCPCS: 82565; 70553; A9577

== ENCOUNTER 2017-06-09 21:08 | Emergency (ER) | payer MEDICARE, MEDICAID ==
[2017-06-09] MEDS ORDERED: DIAZEPAM INJ 10 MG/2 ML DISP.SYRIN IV ONE (22:41)
[2017-06-09] MEDS ORDERED: IPRATROPIUM/ALBUTEROL 0.5-2.5 MG/3 ML AMPUL NEB ONE (22:41)
[2017-06-09] MEDS ORDERED: KETOROLAC TROMETHAMINE INJ/PF 30 MG/1 ML SDV IV ONE (22:41)
--- NOTE | 2017-06-09 22:42 | ER Document Report ---
ED General - General Chief Complaint: Shortness Of Breath Stated Complaint: SHORTNESS OF BREATH Time Seen by Provider: 06/09/17 22:05 Notes: Patient is a 32-year-old female with past medical history of asthma who presents with an episode of acute worsening of her shortness of breath. Patient states shortly before going to bed she began having a episode of coughing and wheezing. She did try her albuterol inhaler at home without any improvement of her symptoms. She subsequently contacted EMS. States she has had similar episodes in the past that were either panic attacks or asthma attacks. She did receive additional nebulizers by EMS as well as Solu-Medrol with significant improvement of her symptoms. She is not noticing anything triggered or worsened her symptoms. She has never required hospitalization or intubation for her asthma. She has not seen a primary doctor regarding today's concerns. TRAVEL OUTSIDE OF THE [place] IN LAST 30 DAYS: No - Related Data Allergies/Adverse Reactions: zolpidem tartrate [From Ambien] Allergy (Mild, Verified 03/10/17 19:11) Abnormal behavior ciprofloxacin [From Cipro] Allergy (Verified 03/10/17 19:11) ciprofloxacin HCl [From Cipro] Allergy (Verified 03/10/17 19:11) citalopram [Citalopram] Allergy (Verified 03/10/17 19:11) escitalopram oxalate [From Lexapro] Allergy (Verified 03/10/17 19:11) lamotrigine [From Lamictal] Allergy (Verified 03/10/17 19:11) nitrofurantoin [From Macrobid] Allergy (Verified 03/10/17 19:11) nitrofurantoin macrocrystalline [From Macrobid] Allergy (Verified 03/10/17 19:11 ) Quinolones Allergy (Verified 03/10/17 19:11) ondansetron HCl [From Zofran] Adverse Reaction (Verified 03/10/17 19:11) CATS Allergy (Intermediate, Uncoded 03/10/17 19:11) SQUASH Allergy (Unknown, Uncoded 03/10/17 19:11) serotonin Allergy (Uncoded 03/10/17 19:11) Past Medical History - General Information source: Patient - Social History Smoking Status: Never Smoker Frequency of alcohol use: None Drug Abuse: None Lives with: Spouse/Significant other Family History: Arthritis, CAD, CVA, DM, Hyperlipidemia, Hypertension, Malignancy, Other - mental health issues - Past Medical History Cardiac Medical History: Reports: Hx Hypertension Pulmonary Medical History: Reports: Hx Asthma Neurological Medical History: Reports: Hx Migraine, Hx Seizures Endocrine Medical History: Reports: Hx Diabetes Mellitus Type 2 Renal/ Medical History: Reports: Hx Ovarian Cysts. Denies: Hx Peritoneal Dialysis GI Medical History: Reports: Hx Gastroesophageal Reflux Disease Musculoskeltal Medical History: Reports Hx Arthritis, Reports Hx Musculoskeletal Trauma Psychiatric Medical History: Reports: Hx Anxiety, Hx Attention Deficit Hyperactivity Disorder, Hx Bipolar Disorder, Hx Depression, Hx Post Traumatic Stress Disorder Past Surgical History: Reports: Hx Abdominal Surgery - LAPARASCOPY X2, Hx Section - x2, Hx Gynecologic Surgery - 5 D&C (MISCARRIAGES), Hx Oral Surgery - Jaw for TMJ and wisdom teeth, Hx Tubal Ligation - Immunizations Immunizations up to date: Yes Hx Diphtheria, Pertussis, Tetanus Vaccination: Yes - UTD Hx Pneumococcal Vaccination: 11/13/13 Review of Systems - Review of Systems Notes: Constitutional: Negative for fever. HENT: Negative for sore throat. Eyes: Negative for visual changes. Cardiovascular: Negative for chest pain. Respiratory: Positive for shortness of breath. Gastrointestinal: Negative for abdominal pain, vomiting or diarrhea. Genitourinary: Negative for dysuria. Musculoskeletal: Negative for back pain. Skin: Negative for rash. Neurological: Negative for headaches, weakness or numbness. 10 point ROS negative except as marked above and in HPI. Physical Exam - Vital signs Vitals: Pulse Ox 96 06/09/17 21:10 Interpretation: Normal Notes: PHYSICAL EXAMINATION: GENERAL: Well-appearing, well-nourished and in no acute distress. HEAD: Atraumatic, normocephalic. EYES: Pupils equal round and reactive to light, extraocular movements intact, sclera anicteric, conjunctiva are normal. ENT: nares patent, oropharynx clear without exudates. Moist mucous membranes. NECK: Normal range of motion, supple without lymphadenopathy LUNGS: Breath sounds clear to auscultation bilaterally and equal. Mild expiratory wheezing in all lung wilson HEART: Regular rate and rhythm without murmurs ABDOMEN: Soft, nontender, normoactive bowel sounds. No guarding, no rebound. No masses appreciated. EXTREMITIES: Normal range of motion, no pitting or edema. No cyanosis. NEUROLOGICAL: No focal neurological deficits. Moves all extremities spontaneously and on command. PSYCH: Normal mood, normal affect. SKIN: Warm, Dry, normal turgor, no rashes or lesions noted. Course - Re-evaluation Re-evalutation: 06/09/17 22:42 Patient presents with a mild exacerbation of their baseline asthma. Mild wheezing at time of presentation but vitals do not show significant hypoxemia or tachypnea. No retractions. Patient did clinically improve after receiving nebulizers here in the emergency department. Chest x-ray without evidence of an acute pneumonia. Patient able to ambulate without any respiratory distress. Based on patient's overall reassuring assessment, I believe they are stable for outpatient management with steroids. I do not suspect an acute alternative pathology at this time based on history and exam including acute pulmonary embolus, ACS, pneumothorax, or aortic dissection. At this time will discharge with return precautions and follow-up recommendations. Verbal discharge instructions given a the bedside and opportunity for questions given. Medication warnings reviewed. Patient is in agreement with this plan and has verbalized understanding of return precautions and the need for primary care follow-up in the next 24-72 hours. - Vital Signs Vital signs: Temp Pulse Resp BP Pulse Ox 98.1 F 114 H 18 107/62 96 06/09/17 21:13 06/09/17 21:13 06/09/17 21:13 06/09/17 22:47 06/09/17 23:04 - Diagnostic Test Radiology reviewed: Image reviewed, Reports reviewed Radiology results interpreted by me: 06/10/17 03:18 Chest x-ray: No acute infiltrate or pneumothorax Discharge - Discharge Clinical Impression: Asthma attack Condition: Good Disposition: HOME, SELF-CARE Additional Instructions: You were seen for an asthma exacerbation. Your symptoms improved with treatment here in the emergency department. However, it is very important that you return to the emergency department immediately if you began to have worsening difficulty breathing that does not respond to your normal home nebulizers. You are also being sent home on a five-day course of steroids that you should start taking tomorrow. Please also follow closely with your primary care physician. you should also return to emergency department if you develop fever greater than 101, persistent cough, persistent vomiting, pass out, or any other symptoms that are concerning to you. Prescriptions: Prednisone [Deltasone 20 mg Tablet] 3 tab PO DAILY 5 Days Referrals: SALEEM WESTON, MINE LABORER-C [Primary Care Provider] - Follow up as needed
--- NOTE | 2017-06-09 23:10 | RADIOLOGY REPORT (SQ) ---
EXAM DESCRIPTION: CHEST SINGLE VIEW COMPLETED DATE/TIME: 06/09/2017 11:03 pm REASON FOR STUDY: sob COMPARISON: 03/10/2017 EXAM PARAMETERS: NUMBER OF VIEWS: One view. TECHNIQUE: Single frontal radiographic view of the chest acquired. RADIATION DOSE: NA LIMITATIONS: None. FINDINGS: LUNGS AND PLEURA: No opacities, masses or pneumothorax. No pleural effusion. MEDIASTINUM AND HILAR STRUCTURES: No masses. Contour normal. HEART AND VASCULAR STRUCTURES: Heart normal in size. Normal vasculature. BONES: No acute findings. HARDWARE: None in the chest. OTHER: No other significant finding. IMPRESSION: NO ACUTE RADIOGRAPHIC FINDING IN THE CHEST. TECHNICAL DOCUMENTATION: JOB ID: [id number]
[2017-06-09 23:14] VITALS: BP 107/62
== END 2017-06-09 23:22 | disposition home or self-care (01) ==
LOC: ER 21:08
DX: J45.901 Unspecified asthma with (acute) exacerbation (principal); R06.02 Shortness of breath; I10 Essential (primary) hypertension; E11.9 Type 2 diabetes mellitus without complications; Z88.8 Allergy status to other drugs, medicaments and biological substances; Z88.1 Allergy status to other antibiotic agents; Z91.018 Allergy to other foods; Z91.048 Other nonmedicinal substance allergy status
CPT/HCPCS: 94640; 99285; 96374; 96375; 71010; J3360; J1885; A9270; J7620

== ENCOUNTER 2017-06-11 20:22 | Emergency (ER) | payer MEDICARE, MEDICAID ==
[2017-06-11] MEDS ORDERED: PREDNISONE 20 MG TABLET PO ONE (20:55)
[2017-06-11] MEDS ORDERED: IPRATROPIUM/ALBUTEROL 0.5-2.5 MG/3 ML AMPUL NEB ONE (20:55)
[2017-06-11] MEDS ORDERED: KETOROLAC TROMETHAMINE INJ/PF 30 MG/1 ML SDV IV ONE (21:25)
[2017-06-11] MEDS ORDERED: DIAZEPAM INJ 10 MG/2 ML DISP.SYRIN IV ONE (21:25)
--- NOTE | 2017-06-11 21:38 | ER Document Report ---
ED General - General Chief Complaint: Asthma Exacerbation Stated Complaint: DIFFICULTY BREATHING Time Seen by Provider: 06/11/17 20:54 Notes: Patient is a 32 year old female who presents with an additional episode of shortness of breath today. Today she states that this feels much more like a panic attack. States it started shortly prior to arrival and has moderately improved since EMS provided steroids. She has not filled the prednisone prescription from the last time I saw her. Nothing improves or worsens her symptoms at this time which she states is minimal shortness of breath and some diffuse chest wall tightness. She has not yet followed up with her primary care doctor. TRAVEL OUTSIDE OF THE [place] IN LAST 30 DAYS: No - Related Data Allergies/Adverse Reactions: zolpidem tartrate [From Ambien] Allergy (Mild, Verified 03/10/17 19:11) Abnormal behavior ciprofloxacin [From Cipro] Allergy (Verified 03/10/17 19:11) ciprofloxacin HCl [From Cipro] Allergy (Verified 03/10/17 19:11) citalopram [Citalopram] Allergy (Verified 03/10/17 19:11) escitalopram oxalate [From Lexapro] Allergy (Verified 03/10/17 19:11) lamotrigine [From Lamictal] Allergy (Verified 03/10/17 19:11) nitrofurantoin [From Macrobid] Allergy (Verified 03/10/17 19:11) nitrofurantoin macrocrystalline [From Macrobid] Allergy (Verified 03/10/17 19:11 ) Quinolones Allergy (Verified 03/10/17 19:11) ondansetron HCl [From Zofran] Adverse Reaction (Verified 03/10/17 19:11) CATS Allergy (Intermediate, Uncoded 03/10/17 19:11) SQUASH Allergy (Unknown, Uncoded 03/10/17 19:11) serotonin Allergy (Uncoded 03/10/17 19:11) Past Medical History - General Information source: Patient - Social History Smoking Status: Never Smoker Frequency of alcohol use: None Drug Abuse: None Lives with: Spouse/Significant other Family History: Arthritis, CAD, CVA, DM, Hyperlipidemia, Hypertension, Malignancy, Other - mental health issues - Past Medical History Cardiac Medical History: Reports: Hx Hypertension Pulmonary Medical History: Reports: Hx Asthma Neurological Medical History: Reports: Hx Migraine, Hx Seizures Endocrine Medical History: Reports: Hx Diabetes Mellitus Type 2 Renal/ Medical History: Reports: Hx Ovarian Cysts. Denies: Hx Peritoneal Dialysis GI Medical History: Reports: Hx Gastroesophageal Reflux Disease Musculoskeltal Medical History: Reports Hx Arthritis, Reports Hx Musculoskeletal Trauma Psychiatric Medical History: Reports: Hx Anxiety, Hx Attention Deficit Hyperactivity Disorder, Hx Bipolar Disorder, Hx Depression, Hx Post Traumatic Stress Disorder Past Surgical History: Reports: Hx Abdominal Surgery - LAPARASCOPY X2, Hx Section - x2, Hx Gynecologic Surgery - 5 D&C (MISCARRIAGES), Hx Oral Surgery - Jaw for TMJ and wisdom teeth, Hx Tubal Ligation - Immunizations Immunizations up to date: Yes Hx Diphtheria, Pertussis, Tetanus Vaccination: Yes - UTD Hx Pneumococcal Vaccination: 11/13/13 Review of Systems - Review of Systems Notes: Constitutional: Negative for fever. HENT: Negative for sore throat. Eyes: Negative for visual changes. Cardiovascular: Negative for chest pain. Respiratory: Positive for shortness of breath. Gastrointestinal: Negative for abdominal pain, vomiting or diarrhea. Genitourinary: Negative for dysuria. Musculoskeletal: Negative for back pain. Skin: Negative for rash. Neurological: Negative for headaches, weakness or numbness. 10 point ROS negative except as marked above and in HPI. Physical Exam - Vital signs Vitals: Temp Pulse Resp BP Pulse Ox 97.9 F 122 H 22 H 123/67 97 06/11/17 20:31 06/11/17 20:31 06/11/17 20:31 06/11/17 20:31 06/11/17 20:31 Interpretation: Tachycardic, Tachypneic Notes: PHYSICAL EXAMINATION: GENERAL: Well-appearing, well-nourished and in no acute distress. HEAD: Atraumatic, normocephalic. EYES: Pupils equal round and reactive to light, extraocular movements intact, sclera anicteric, conjunctiva are normal. ENT: nares patent, oropharynx clear without exudates. Moist mucous membranes. NECK: Normal range of motion, supple without lymphadenopathy LUNGS: Breath sounds clear to auscultation bilaterally and equal. No wheezes rales or rhonchi. HEART: Regular tachycardia without murmurs ABDOMEN: Soft, nontender, normoactive bowel sounds. No guarding, no rebound. No masses appreciated. EXTREMITIES: Normal range of motion, no pitting or edema. No cyanosis. NEUROLOGICAL: No focal neurological deficits. Moves all extremities spontaneously and on command. PSYCH: Tremulous, somewhat anxious SKIN: Warm, Dry, normal turgor, no rashes or lesions noted. Course - Re-evaluation Re-evalutation: 06/11/17 21:37 Patient presents with history most consistent with an acute panic attack. The patient admits that these are symptoms identical to prior occasions of panic. There was a clear trigger for tonight's episode. Symptoms did resolve after receiving medical therapy here in the emergency department. Vitals otherwise within normal limits. I do not suspect an acute pulmonary embolus, ACS, pneumothorax, or any other acute left threatening pathology based on history and exam. Patient was worried about a recurrence of her asthma exacerbation although she has absolutely no wheezing in examination. She does admit that she feels that the majority of her presentation is secondary to anxiety of which she does have a history. I do not believe any labs or imaging are indicated at this time. At this time will discharge with return precautions and follow-up recommendations. Verbal discharge instructions given a the bedside and opportunity for questions given. Medication warnings reviewed. Patient is in agreement with this plan and has verbalized understanding of return precautions and the need for primary care follow-up in the next 24-72 hours. - Vital Signs Vital signs: Temp Pulse Resp BP Pulse Ox 97.9 F 84 20 128/86 H 99 06/11/17 20:31 06/11/17 21:47 06/11/17 21:47 06/11/17 21:47 06/11/17 21:47 Discharge - Discharge Clinical Impression: Panic attack Asthma Qualifiers: Asthma severity: unspecified severity Asthma complication type: uncomplicated Qualified Code(s): J45.909 - Unspecified asthma, uncomplicated Condition: Good Disposition: HOME, SELF-CARE Additional Instructions: You were seen today for symptoms that are most suggestive of a panic attack. The symptoms can come on without any clear trigger. It is important that you follow-up with your primary care physician regarding anxiety and panic attacks as there are medications that can help prevent these attacks or stop them once they start. Please return to the emergency department immediately if you began having chest pain, shortness of breath, vomiting, difficulty breathing, or if you are again having a panic attack. Please also return if you have any additional symptoms that are concerning to you. Referrals: SALEEM WESTON, [employer]-C [Primary Care Provider] - Follow up as needed
[2017-06-11 21:48] VITALS: BP 128/86
== END 2017-06-11 21:47 | disposition home or self-care (01) ==
LOC: ER 20:22
DX: F41.0 Panic disorder [episodic paroxysmal anxiety] (principal); J45.909 Unspecified asthma, uncomplicated; R06.02 Shortness of breath; R07.89 Other chest pain; R00.0 Tachycardia, unspecified; I10 Essential (primary) hypertension; E11.9 Type 2 diabetes mellitus without complications; Z88.8 Allergy status to other drugs, medicaments and biological substances; Z88.1 Allergy status to other antibiotic agents; Z91.018 Allergy to other foods; Z91.048 Other nonmedicinal substance allergy status
CPT/HCPCS: 99285; J3360; J1885; A9270; J7620

== ENCOUNTER 2017-06-18 10:03 | Emergency (ER) | payer MEDICARE, MEDICAID ==
--- NOTE | 2017-06-18 10:59 | ER Document Report ---
ED Medical Screen (RME) - General Chief Complaint: Jaw Pain Stated Complaint: JAW PAIN Time Seen by Provider: 06/18/17 10:52 Mode of Arrival: Ambulatory Information source: Patient Notes: 32-year-old female presents with complaints of marked jaw. Patient notes she has a history of TMJ this happens quite a few times a year I have greeted and performed a rapid initial assessment of this patient. A comprehensive ED assessment and evaluation of the patient, analysis of test results and completion of the medical decision making process will be conducted by additional ED providers. PHYSICAL EXAMINATION: GENERAL: Well-appearing, well-nourished and in no acute distress. HEAD: Atraumatic, normocephalic. EYES: Pupils equal round extraocular movements intact, conjunctiva are normal. ENT: Nares patent patient unable to open her mouth NECK: Normal range of motion LUNGS: No respiratory distress Musculoskeletal: Normal range of motion NEUROLOGICAL: Normal speech, normal gait. PSYCH: Normal mood, normal affect. SKIN: Warm, Dry, normal turgor, no rashes or lesions noted. TRAVEL OUTSIDE OF THE [place] IN LAST 30 DAYS: No - Related Data Allergies/Adverse Reactions: zolpidem tartrate [From Ambien] Allergy (Mild, Verified 06/18/17 10:38) Abnormal behavior ciprofloxacin [From Cipro] Allergy (Verified 06/18/17 10:38) ciprofloxacin HCl [From Cipro] Allergy (Verified 06/18/17 10:38) citalopram [Citalopram] Allergy (Verified 06/18/17 10:38) escitalopram oxalate [From Lexapro] Allergy (Verified 06/18/17 10:38) lamotrigine [From Lamictal] Allergy (Verified 06/18/17 10:38) nitrofurantoin [From Macrobid] Allergy (Verified 06/18/17 10:38) nitrofurantoin macrocrystalline [From Macrobid] Allergy (Verified 06/18/17 10:38 ) Quinolones Allergy (Verified 06/18/17 10:38) ondansetron HCl [From Zofran] Adverse Reaction (Verified 06/18/17 10:38) CATS Allergy (Intermediate, Uncoded 03/10/17 19:11) SQUASH Allergy (Unknown, Uncoded 03/10/17 19:11) serotonin Allergy (Uncoded 03/10/17 19:11) Past Medical History - Past Medical History Cardiac Medical History: Reports: Hx Hypertension Pulmonary Medical History: Reports: Hx Asthma Neurological Medical History: Reports: Hx Migraine, Hx Seizures Endocrine Medical History: Reports: Hx Diabetes Mellitus Type 2 Renal/ Medical History: Reports: Hx Ovarian Cysts. Denies: Hx Peritoneal Dialysis GI Medical History: Reports: Hx Gastroesophageal Reflux Disease Musculoskeltal Medical History: Reports Hx Arthritis, Reports Hx Musculoskeletal Trauma Psychiatric Medical History: Reports: Hx Anxiety, Hx Attention Deficit Hyperactivity Disorder, Hx Bipolar Disorder, Hx Depression, Hx Post Traumatic Stress Disorder Past Surgical History: Reports: Hx Abdominal Surgery - LAPARASCOPY X2, Hx Section - x2, Hx Gynecologic Surgery - 5 D&C ([place]IS[place]RIAGES), Hx Oral Surgery - Jaw for TMJ and wisdom teeth, Hx Tubal Ligation - Immunizations Immunizations up to date: Yes Hx Diphtheria, Pertussis, Tetanus Vaccination: Yes - UTD Physical Exam - Vital signs Vitals: Temp Pulse Resp BP Pulse Ox 98.7 F 123 H 16 126/61 H 98 06/18/17 10:32 06/18/17 10:32 06/18/17 10:32 06/18/17 10:32 06/18/17 10:32 Course - Vital Signs Vital signs: Temp Pulse Resp BP Pulse Ox 98.7 F 123 H 16 126/61 H 98 06/18/17 10:32 06/18/17 10:32 06/18/17 10:32 06/18/17 10:32 06/18/17 10:32
[2017-06-18 11:53] VITALS: BP 108/54
[2017-06-18] MEDS ORDERED: DIAZEPAM INJ 10 MG/2 ML DISP.SYRIN IV ONE ×2 (12:10→13:34)
[2017-06-18] MEDS ORDERED: HYDROMORPHONE HCL INJ/PF 2 MG/ML AMPULE IV ONE ×2 (12:11→13:34)
--- NOTE | 2017-06-18 12:24 | ER Document Report ---
ED Oral Problem - General Chief Complaint: Jaw Pain Stated Complaint: JAW PAIN Time Seen by Provider: 06/18/17 10:52 Mode of Arrival: Ambulatory Notes: Patient has been unable to open her mouth since about 9:45 AM this morning. She was drinking water when this inability to open her mouth suddenly occurred. Also, she has pain in the left TMJ region and in the adjacent muscular structure on the left side. This visit is one of several visits that the patient has had for similar symptoms in the past. Her most recent visit here was in February, and she had to receive IV Valium and Dilaudid before her symptoms would remit. She has been diagnosed in the past as having TMJ and has had discussions with dentist regarding surgery for this condition, but currently is on no treatment management except that she wears a mouthpiece at night because she grinds her teeth. She says she is unable to move her mandible any amount. Unable to open her mouth enough to swallow food or medications. PMH: Asthma, hypertension, NIDDM, anxiety. For the latter, she is seen at [facility] and is currently on a prescription for Valium 5 mg 3 times a day, but will likely run out in about 2 days. She is supposed to follow-up at [facility] for that medication. TRAVEL OUTSIDE OF THE [place] IN LAST 30 DAYS: No - Related Data Allergies/Adverse Reactions: zolpidem tartrate [From Ambien] Allergy (Mild, Verified 06/18/17 10:38) Abnormal behavior ciprofloxacin [From Cipro] Allergy (Verified 06/18/17 10:38) ciprofloxacin HCl [From Cipro] Allergy (Verified 06/18/17 10:38) citalopram [Citalopram] Allergy (Verified 06/18/17 10:38) escitalopram oxalate [From Lexapro] Allergy (Verified 06/18/17 10:38) lamotrigine [From Lamictal] Allergy (Verified 06/18/17 10:38) nitrofurantoin [From Macrobid] Allergy (Verified 06/18/17 10:38) nitrofurantoin macrocrystalline [From Macrobid] Allergy (Verified 06/18/17 10:38 ) Quinolones Allergy (Verified 06/18/17 10:38) ondansetron HCl [From Zofran] Adverse Reaction (Verified 06/18/17 10:38) CATS Allergy (Intermediate, Uncoded 03/10/17 19:11) SQUASH Allergy (Unknown, Uncoded 03/10/17 19:11) serotonin Allergy (Uncoded 03/10/17 19:11) Past Medical History - General Information source: Patient - Social History Smoking Status: Never Smoker Chew tobacco use (# tins/day): No Drug Abuse: None Family History: Arthritis, CAD, CVA, DM, Hyperlipidemia, Hypertension, Malignancy, Other - mental health issues Patient has suicidal ideation: No Patient has homicidal ideation: No - Past Medical History Cardiac Medical History: Reports: Hx Hypertension Pulmonary Medical History: Reports: Hx Asthma Neurological Medical History: Reports: Hx Migraine, Hx Seizures Endocrine Medical History: Reports: Hx Diabetes Mellitus Type 2 Renal/ Medical History: Reports: Hx Ovarian Cysts GI Medical History: Reports: Hx Gastroesophageal Reflux Disease Musculoskeltal Medical History: Reports Hx Arthritis, Reports Hx Musculoskeletal Trauma Psychiatric Medical History: Reports: Hx Anxiety, Hx Attention Deficit Hyperactivity Disorder, Hx Bipolar Disorder, Hx Depression, Hx Post Traumatic Stress Disorder Past Surgical History: Reports: Hx Abdominal Surgery - LAPARASCOPY X2, Hx Section - x2, Hx Gynecologic Surgery - 5 D&C ([place]IS[place]RIAGES), Hx Oral Surgery - Jaw for TMJ and wisdom teeth, Hx Tubal Ligation - Immunizations Immunizations up to date: Yes Hx Diphtheria, Pertussis, Tetanus Vaccination: Yes - UTD Hx Pneumococcal Vaccination: 11/13/13 Review of Systems - Review of Systems Notes: REVIEW OF SYSTEMS: CONSTITUTIONAL : Denies fever. Denies any injury. EENT: Denies eye, ear, nose symptoms. See HPI. CARDIOVASCULAR: Denies chest pain. RESPIRATORY: Denies cough, chest congestion, or shortness of breath. GASTROINTESTINAL: Denies abdominal pain or nausea, vomiting, or diarrhea. GENITOURINARY: Denies difficulty or painful urinating, urinary frequency, blood in urine. MUSCULOSKELETAL: Denies back or neck pain. Denies joint pain or swelling. SKIN: Denies rash or skin lesions. NEUROLOGICAL: Denies LOC or altered mental status. Denies headache. Denies sensory loss or motor deficits. ALL OTHER SYSTEMS REVIEWED AND NEGATIVE. Physical Exam - Vital signs Vitals: Temp Pulse Resp BP Pulse Ox 98.7 F 123 H 16 126/61 H 98 06/18/17 10:32 06/18/17 10:32 06/18/17 10:32 06/18/17 10:32 06/18/17 10:32 Initial heart rate recorded is 123, but I question its accuracy. Patient had a repeat heart rate done at my request and it was 96. - Notes Notes: PHYSICAL EXAMINATION: GENERAL: Well-appearing, in no acute distress. Vital signs are all normal after repeat pulse. HEAD: Atraumatic, normocephalic. EYES: Pupils equal round and reactive to light, extraocular movements intact. ENT: Patient cannot or will not open her mouth. She will not relax the jaw at all to allow the slightest of movement or oral entry for fluids or pills. NECK: Normal range of motion, supple. LUNGS: Breath sounds clear and equal bilaterally. HEART: Regular rate and rhythm without murmurs. ABDOMEN: Soft, nontender. No guarding or rebound. BACK: No tenderness throughout entire back. EXTREMITIES: Normal range of motion without pain. NEUROLOGICAL: Normal speech, normal gait. Normal sensory, motor, and reflex exams. Awake, alert, and oriented x3. Cranial nerves normal. PSYCH: Normal mood, normal affect. SKIN: Warm, dry, no rashes. Course - Re-evaluation Re-evalutation: 06/18/17 14:22 I was about to give the patient a second dose of both the Valium and the Dilaudid IV when the nurse reported to me that the patient's apparent spasm released and she was able to open her mouth without any difficulty or pain. While I will say this does not really fit the symptoms I would expect to see with any truly pathologic entity, it is better and I am going to send her home with a small amount of each of those medicines in liquid form to take in the future to try to avoid an ER visit for the same. - Vital Signs Vital signs: Temp Pulse Resp BP Pulse Ox 99.1 F 96 18 108/54 L 99 06/18/17 11:51 06/18/17 11:51 06/18/17 11:51 06/18/17 11:51 06/18/17 11:51 Discharge - Discharge Clinical Impression: TMJ syndrome, [place] muscle spasm Condition: Stable Disposition: HOME, SELF-CARE Additional Instructions: Temporomandibular Joint Syndrome (TMJ) You have TMJ syndrome. TMJ syndrome is caused by injury or degeneration of the temporomandibular joint, where the jaw joins the skull. Symptoms can include pain in the adventist or in front of the ear, headaches, clicking with jaw motion, locking of the jaw, and trouble fitting the teeth together. Some cases of TMJ syndrome go away with antiinflammatory medicine. Others require surgery. Sometimes a dental appliance at night helps. You may require special x-rays to evaluate the joint. If the symptoms resolve quickly, you may not need further care. If symptoms are chronic or recurrent, we'll refer you to a specialist for evaluation. The joint should be rested. Stay on a diet that requires no chewing -- such as milkshakes, applesauce, and puddings. Avoid any motion of the jaw which provokes pain. Periodic ice packs help decrease swelling and pain. You should follow up as instructed, and call the physician if you have any problems. Muscle Relaxers--you have been given Valium as a muscle relaxer Muscle relaxing medications are usually prescribed for acute muscle spasm or injury to the neck and back. They are often combined with antiinflammatory pain medication for increased relief. You may stop the muscle relaxer when the pain and stiffness have improved. Start the medication again if spasms recur. Muscle relaxers may cause drowsiness, especially with the first dose. Do not operate machinery or drive while under the effects of the medication. Most muscle relaxers last up to 24 hours. Do not combine the medication with alcohol. Oral Narcotic Medication You have been given a prescription for pain control. This medication is a narcotic. It's best taken with food, as nausea can result if taken on an empty stomach. Don't operate machinery or drive within six hours of taking this medication. Do not combine this medicine with alcohol, or with any medication which can cause sedation (such as cold tablets or sleeping pills) unless you get permission from the physician. Narcotics tend to cause constipation. If possible, drink plenty of fluids and eat a diet high in fiber and fruits. FOLLOW-UP CARE: If you have been referred to a physician for follow-up care, call the physician s office for an appointment as you were instructed or within the next two days. If you experience worsening or a significant change in your symptoms, notify the physician immediately or return to the Emergency Department at any time for re-evaluation. Follow-up with your dentist regarding further care. Prescriptions: Diazepam 5 - 10 mg PO Q4HP PRN #60 ml PRN Reason: Hydromorphone HCl [Dilaudid] 1 - 2 mg PO Q6HP PRN #12 liquid PRN Reason: Referrals: SALEEM WESTON FNP-C [Primary Care Provider] - Follow up as needed
== END 2017-06-18 14:45 | disposition home or self-care (01) ==
LOC: ER 10:03
DX: M26.622 Arthralgia of left temporomandibular joint (principal); M62.838 Other muscle spasm; G47.63 Sleep related bruxism; J45.909 Unspecified asthma, uncomplicated; I10 Essential (primary) hypertension; E11.9 Type 2 diabetes mellitus without complications; F41.9 Anxiety disorder, unspecified; Z79.899 Other long term (current) drug therapy; Z88.8 Allergy status to other drugs, medicaments and biological substances; Z88.1 Allergy status to other antibiotic agents; Z91.048 Other nonmedicinal substance allergy status; Z91.018 Allergy to other foods; Z98.890 Other specified postprocedural states
CPT/HCPCS: 99283; 96374; 96375; J3360; J1170

== ENCOUNTER 2017-07-11 15:08 | Emergency (ER) | payer MEDICARE, MEDICAID ==
--- NOTE | 2017-07-11 15:47 | ER Document Report ---
ED Medical Screen (RME) - General Chief Complaint: Chest Pain Stated Complaint: CHEST PAIN Time Seen by Provider: 07/11/17 15:45 Notes: Patient reports right-sided chest pain that started this afternoon. She has had some mild shortness of breath and nausea. The pain is been constant. She does not appreciate anything that makes it better or worse. She denies any previous history of coronary artery disease. TRAVEL OUTSIDE OF THE [place] IN LAST 30 DAYS: No - Related Data Allergies/Adverse Reactions: zolpidem tartrate [From Ambien] Allergy (Mild, Verified 07/11/17 15:26) Abnormal behavior ciprofloxacin [From Cipro] Allergy (Verified 07/11/17 15:26) ciprofloxacin HCl [From Cipro] Allergy (Verified 07/11/17 15:26) citalopram [Citalopram] Allergy (Verified 07/11/17 15:26) escitalopram oxalate [From Lexapro] Allergy (Verified 07/11/17 15:26) lamotrigine [From Lamictal] Allergy (Verified 07/11/17 15:26) nitrofurantoin [From Macrobid] Allergy (Verified 07/11/17 15:26) nitrofurantoin macrocrystalline [From Macrobid] Allergy (Verified 07/11/17 15:26 ) Quinolones Allergy (Verified 07/11/17 15:26) ondansetron HCl [From Zofran] Adverse Reaction (Verified 07/11/17 15:26) CATS Allergy (Intermediate, Uncoded 03/10/17 19:11) SQUASH Allergy (Unknown, Uncoded 03/10/17 19:11) serotonin Allergy (Uncoded 03/10/17 19:11) Past Medical History - Past Medical History Cardiac Medical History: Reports: Hx Hypertension Pulmonary Medical History: Reports: Hx Asthma Neurological Medical History: Reports: Hx Migraine, Hx Seizures Endocrine Medical History: Reports: Hx Diabetes Mellitus Type 2 Renal/ Medical History: Reports: Hx Ovarian Cysts. Denies: Hx Peritoneal Dialysis GI Medical History: Reports: Hx Gastroesophageal Reflux Disease Musculoskeltal Medical History: Reports Hx Arthritis, Reports Hx Musculoskeletal Trauma Psychiatric Medical History: Reports: Hx Anxiety, Hx Attention Deficit Hyperactivity Disorder, Hx Bipolar Disorder, Hx Depression, Hx Post Traumatic Stress Disorder Past Surgical History: Reports: Hx Abdominal Surgery - LAPARASCOPY X2, Hx Section - x2, Hx Gynecologic Surgery - 5 D&C ([place]IS[place]AGES), Hx Oral Surgery - Jaw for TMJ and wisdom teeth, Hx Tubal Ligation - Immunizations Immunizations up to date: Yes Hx Diphtheria, Pertussis, Tetanus Vaccination: Yes - UTD Physical Exam - Vital signs Vitals: Temp Pulse Resp BP Pulse Ox 98.6 F 111 H 16 104/66 96 07/11/17 15:27 07/11/17 15:27 07/11/17 15:27 07/11/17 15:27 07/11/17 15:27 Course - Vital Signs Vital signs: Temp Pulse Resp BP Pulse Ox 98.6 F 111 H 16 114/62 96 07/11/17 15:27 07/11/17 15:27 07/11/17 15:27 07/11/17 15:43 07/11/17 15:27
[2017-07-11 16:25] LABS: ABSOLUTE EOSINOPHILS # (AUTO) 0.1 10^3/uL (0.0-0.6); ABSOLUTE LYMPHOCYTES (AUTO) 1.6 10^3/uL (0.5-4.7); ABSOLUTE MONOCYTES (AUTO) 0.3 10^3/uL (0.1-1.4); ABSOLUTE NEUT (AUTO) 3.8 10^3/uL (1.7-8.2); BASOPHILS % (AUTO) 0.5 % (0-2); EOSINOPHILS % (AUTO) 1.1 % (0-6); HEMATOCRIT 37.2 % (36.0-47.0); HEMOGLOBIN 12.2 g/dL (12.0-15.5); HGB HCT DIFFERENCE -0.6; LYMPHOCYTES % (AUTO) 28.3 % (13-45); MEAN CORPUSCULAR HEMOGLOBIN 29.6 pg (27.0-33.4); MEAN CORPUSCULAR HGB CONC 32.7 g/dL (32.0-36.0); MEAN CORPUSCULAR VOLUME 90 fl (80-97); MONOCYTES % (AUTO) 5.1 % (3-13); RED BLOOD COUNT 4.12 10^6/uL (3.72-5.28); RED CELL DISTRIBUTION WIDTH 14.6 % (11.5-14.0); WHITE BLOOD COUNT 5.8 10^3/uL (4.0-10.5)
[2017-07-11 16:40] LABS: ALANINE AMINOTRANSFERASE 17 U/L (9-52); ALBUMIN 4.3 g/dL (3.5-5.0); ALKALINE PHOSPHATASE 50 U/L (38-126); ANION GAP 14 (5-19); ASPARTATE AMINO TRANSFERASE 15 U/L (14-36); BILIRUBIN,DIRECT 0.3 mg/dL (0.0-0.4); BILIRUBIN,TOTAL 0.3 mg/dL (0.2-1.3); BLOOD UREA NITROGEN 7 mg/dL (7-20); CALCIUM 9.9 mg/dL (8.4-10.2); CARBON DIOXIDE 25 mmol/L (22-30); CHLORIDE 103 mmol/L (98-107); CREATININE RESULT 0.64 mg/dL (0.52-1.25); GLUCOSE 108 mg/dL (75-110); POTASSIUM 4.1 mmol/L (3.6-5.0); TOTAL PROTEIN 7.1 g/dL (6.3-8.2)
[2017-07-11 16:51] LABS: APPEARANCE,URINE CLEAR; BILIRUBIN,URINE NEGATIVE (NEGATIVE); GLUCOSE, URINE 50 mg/dL (NEGATIVE); KETONES,URINE NEGATIVE (NEGATIVE); LEUKOCYTE ESTERASE,URINE NEGATIVE (NEGATIVE); NITRITE,URINE NEGATIVE (NEGATIVE); PROTEIN,URINE NEGATIVE (NEGATIVE); URINE SPECIFIC GRAVITY 1.008; UROBILINOGEN,URINE NEGATIVE mg/dL (<2.0)
--- NOTE | 2017-07-11 16:57 | RADIOLOGY REPORT (SQ) ---
EXAM DESCRIPTION: CHEST PA/LAT COMPLETED DATE/TIME: 07/11/2017 4:44 pm REASON FOR STUDY: chest pain COMPARISON: 06/09/2017, 03/10/2017 EXAM PARAMETERS: NUMBER OF VIEWS: two views TECHNIQUE: Digital Frontal and Lateral radiographic views of the chest acquired. RADIATION DOSE: NA LIMITATIONS: none FINDINGS: LUNGS AND PLEURA: Minimal bibasilar bandlike atelectasis. MEDIASTINUM AND HILAR STRUCTURES: No masses or contour abnormalities. HEART AND VASCULAR STRUCTURES: Heart normal size. No evidence for failure. BONES: No acute findings. HARDWARE: None in the chest. OTHER: No other significant finding. IMPRESSION: Minimal bibasilar bandlike atelectasis. TECHNICAL DOCUMENTATION: JOB ID: [id number] [employer]- All Rights Reserved
--- NOTE | 2017-07-11 17:14 | ER Document Report ---
ED Cardiac - General Chief Complaint: Chest Pain Stated Complaint: CHEST PAIN Time Seen by Provider: 07/11/17 15:45 Notes: Patient says she began to experience sharp, severe pain in the mid substernal region of her chest which radiated into her back. It began about 215 this afternoon while she was sitting and talking. No unusual or strenuous activity. Has not had this pain previously. Has no history of any heart condition. Does have asthma. Has not been sick recently. Patient has a history of hypertension, NIDDM, and anxiety. Current medications include Valium 5 mg 3 times a day as needed for anxiety, Seroquel, trazodone, Mobic. Patient has had her tubes tied. LMP was 06/21. TRAVEL OUTSIDE OF THE [place] IN LAST 30 DAYS: No - Related Data Allergies/Adverse Reactions: zolpidem tartrate [From Ambien] Allergy (Mild, Verified 07/11/17 15:26) Abnormal behavior ciprofloxacin [From Cipro] Allergy (Verified 07/11/17 15:26) ciprofloxacin HCl [From Cipro] Allergy (Verified 07/11/17 15:26) citalopram [Citalopram] Allergy (Verified 07/11/17 15:26) escitalopram oxalate [From Lexapro] Allergy (Verified 07/11/17 15:26) lamotrigine [From Lamictal] Allergy (Verified 07/11/17 15:26) nitrofurantoin [From Macrobid] Allergy (Verified 07/11/17 15:26) nitrofurantoin macrocrystalline [From Macrobid] Allergy (Verified 07/11/17 15:26 ) Quinolones Allergy (Verified 07/11/17 15:26) ondansetron HCl [From Zofran] Adverse Reaction (Verified 07/11/17 15:26) CATS Allergy (Intermediate, Uncoded 03/10/17 19:11) SQUASH Allergy (Unknown, Uncoded 03/10/17 19:11) serotonin Allergy (Uncoded 03/10/17 19:11) Past Medical History - Social History Smoking Status: Never Smoker Family History: Arthritis, CAD, CVA, DM, Hyperlipidemia, Hypertension, Malignancy, Other - mental health issues Patient has suicidal ideation: No Patient has homicidal ideation: No - Past Medical History Cardiac Medical History: Reports: Hx Hypertension Denies: Hx Coronary Artery Disease Pulmonary Medical History: Reports: Hx Asthma Neurological Medical History: Reports: Hx Migraine, Hx Seizures Endocrine Medical History: Reports: Hx Diabetes Mellitus Type 2 Renal/ Medical History: Reports: Hx Ovarian Cysts GI Medical History: Reports: Hx Gastroesophageal Reflux Disease Musculoskeltal Medical History: Reports Hx Arthritis, Reports Hx Musculoskeletal Trauma Psychiatric Medical History: Reports: Hx Anxiety, Hx Attention Deficit Hyperactivity Disorder, Hx Bipolar Disorder, Hx Depression, Hx Post Traumatic Stress Disorder Past Surgical History: Reports: Hx Abdominal Surgery - LAPARASCOPY X2, Hx Section - x2, Hx Gynecologic Surgery - 5 D&C (MISCARRIAGES), Hx Oral Surgery - Jaw for TMJ and wisdom teeth, Hx Tubal Ligation - Immunizations Immunizations up to date: Yes Hx Diphtheria, Pertussis, Tetanus Vaccination: Yes - UTD Hx Pneumococcal Vaccination: 11/13/13 Review of Systems - Review of Systems Notes: REVIEW OF SYSTEMS: CONSTITUTIONAL : Denies fever. EENT: Denies eye, ear, nose or mouth or throat pain or other symptoms. CARDIOVASCULAR: See HPI. RESPIRATORY: Denies cough, chest congestion, or shortness of breath. GASTROINTESTINAL: Denies abdominal pain or nausea, vomiting, or diarrhea. GENITOURINARY: Denies difficulty or painful urinating, urinary frequency, blood in urine. MUSCULOSKELETAL: Denies back or neck pain. Denies joint pain or swelling. SKIN: Denies rash or skin lesions. NEUROLOGICAL: Denies LOC or altered mental status. Denies headache. Denies sensory loss or motor deficits. Psychological: Acknowledges feeling anxious. ALL OTHER SYSTEMS REVIEWED AND NEGATIVE. Physical Exam - Vital signs Vitals: Temp Pulse Resp BP Pulse Ox 98.6 F 111 H 16 104/66 96 07/11/17 15:27 07/11/17 15:27 07/11/17 15:27 07/11/17 15:27 07/11/17 15:27 Interpretation: Tachycardic - Very minor - Notes Notes: PHYSICAL EXAMINATION: GENERAL: Well-appearing, in no acute distress. Anxious. Vital signs are all essentially normal with the exception of a very slight tachycardia. HEAD: Atraumatic, normocephalic. EYES: Pupils equal round and reactive to light, extraocular movements intact. ENT: oropharynx clear without exudates. Moist mucous membranes. NECK: Normal range of motion, supple. LUNGS: Breath sounds clear and equal bilaterally. No tenderness to press on the sternum. HEART: Regular rate and rhythm without murmurs. ABDOMEN: Soft, nontender. No guarding or rebound. BACK: No tenderness throughout entire back. EXTREMITIES: Normal range of motion without pain. Negative Homans bilaterally. Nothing to indicate clots in the deep venous system. NEUROLOGICAL: Normal speech, normal gait. Normal sensory, motor, and reflex exams. Awake, alert, and oriented x3. Cranial nerves normal. PSYCH: Normal mood, normal affect. SKIN: Warm, dry, no rashes. Course - Re-evaluation Re-evalutation: 07/11/17 19:27 Patient's entire workup including EKG, chest x-ray, and labs is normal. Reassured patient and advised her to take her own Valium as needed for symptoms. - Vital Signs Vital signs: Temp Pulse Resp BP Pulse Ox 98.6 F 111 H 21 H 92/64 L 100 07/11/17 15:27 07/11/17 15:27 07/11/17 17:01 07/11/17 17:01 07/11/17 17:01 - Laboratory Result Diagrams: 07/11/17 16:09 07/11/17 16:09 Laboratory results interpreted by me: 07/11/17 07/11/17 16:09 16:19 RDW 14.6 H Urine Glucose (UA) 50 H - Diagnostic Test Radiology results interpreted by ut: 07/11/17 19:27 Chest x-ray is normal. Discharge - Discharge Clinical Impression: Chest pain, non-cardiac, Anxiety Condition: Stable Disposition: HOME, SELF-CARE Additional Instructions: CHEST PAIN OF UNCLEAR CAUSE: The exact cause of your chest pain isn't clear. Fortunately, there is no evidence of a dangerous medical condition. Further testing may be required to find the source of the pain. Most often, we find that this pain is coming from the chest wall -- the muscles or rib joints in the chest. But chest pain can come from the lung and lung lining, the esophagus, the heart valves or heart lining, and even the stomach or gallbladder. Rest. Eat lightly until the pain is gone. We may prescribe medicine for pain and inflammation. You should call the physician immediately if the pain radiates to the shoulder, jaw or arms; if you start to run a fever or develop a cough; or if you develop shortness of breath, or other new or alarming symptoms. NORMAL EXAM AND WORKUP: At this time, your examination and workup show no significant abnormality. No significant abnormal physical findings were noted. All laboratory, EKG, and imaging (x-ray, CT scans, ultrasound) studies that were ordered show no significant abnormality. Although your examination and all studies that were ordered showed no significant abnormal finding, there are no examinations and no studies that are 100% accurate. There is always the possibility that some abnormality could exist and not be detected with physical examination or within the limits and capabilities of laboratory and other studies. You should return or follow up as you were instructed on your visit today for further evaluation if your symptoms do not resolve. CHEST WALL PAIN: Your chest pain may be coming from the chest wall. This is often caused by straining the muscles or joints in the chest during physical activity, direct trauma, coughing, or vigorous vomiting. Persons with arthritis are especially prone to this type of pain, due to inflammation of the cartilage joints near the breast bone. Occasionally, no cause can be found. Rest from strenuous physical activity. This kind of chest pain is usually made worse by movement of the chest. Depending on the symptoms, we may prescribe medicine for pain, muscle relaxation, and antiinflammatory effects. If the pain is new, and seems to be due to muscle strain, cold packs can help. Otherwise, apply gentle warmth to the painful area for 15 minutes every hour or two. You should call contact the doctor immediately if things change. Further evaluation is needed if you develop a fever or cough, if the nature of the pain changes, or if you become short of breath. Anxiety The physician feels that some of your health problems are being caused by anxiety. Anxiety affects your health in many ways. Anxiety alone can cause palpitations, sweats, chest pains, abdominal pains, shortness of breath, and headaches. It contributes to ulcer disease, high blood pressure, irritable bowel syndrome, and has been shown to cause flare-ups of many other diseases. Anxiety is not a simple disorder to treat. If the anxiety is due to recent life stresses, you may simply need time to "work through" the changes. If the anxiety is due to an underlying unhappiness with yourself or due to psychiatric disturbance, professional help will be needed. Your physician can refer you for further help if needed. Anti-anxiety medication is occasionally given if the stress is acute or if you are having trouble sleeping. Chronic or frequent use of these medications is not a good idea because the body becomes reliant on it, preventing you from dealing with life's normal stresses. Benzodiazepines You have been given a benzodiazepine medication. Examples of this type of medicine include Valium, Xanax, Librium, Ativan, and Halcion. Benzodiazepines have many uses. Medications of this type are used for insomnia, anxiety, muscle spasms, seizures, and drug and alcohol withdrawal. You may become very drowsy when you first take the medication. You should not drive or operate machinery while under its effects. Do not combine the medication with alcohol, or with any other medication without talking to your doctor. Do not take if without specific instruction from your window glazier helper. Some benzodiazepines may have harmful interactions with oral antifungal medicines such as ketoconazole, itraconazole, and nefazodone. If you are taking an antifungal medicine, discuss this with your doctor before taking benzodiazepines. FOLLOW-UP CARE: If you have been referred to a physician for follow-up care, call the physician s office for an appointment as you were instructed or within the next two days. If you experience worsening or a significant change in your symptoms, notify the physician immediately or return to the Emergency Department at any time for re-evaluation. Take your Valium as needed for symptoms. You may take 2 of them at a time if you wish. Referrals: SALEEM WESTON, [facility] [Primary Care Provider] - Follow up as needed
[2017-07-11 17:43] VITALS: BP 92/64
--- NOTE | 2017-07-12 11:48 | EKG REPORT ---
SEVERITY:- ABNORMAL ECG - SINUS RHYTHM : Confirmed by: Michele Robert 12-Jul-2017 11:47:34
== END 2017-07-11 17:05 | disposition home or self-care (01) ==
LOC: ER 15:08
DX: F41.9 Anxiety disorder, unspecified (principal); R07.89 Other chest pain; R00.0 Tachycardia, unspecified; J45.909 Unspecified asthma, uncomplicated; I10 Essential (primary) hypertension; E11.9 Type 2 diabetes mellitus without complications; M19.90 Unspecified osteoarthritis, unspecified site; F31.9 Bipolar disorder, unspecified; Z79.899 Other long term (current) drug therapy; Z88.8 Allergy status to other drugs, medicaments and biological substances; Z88.1 Allergy status to other antibiotic agents; Z91.018 Allergy to other foods; Z91.048 Other nonmedicinal substance allergy status; Z82.49 Family history of ischemic heart disease and other diseases of the circulatory system; Z79.1 Long term (current) use of non-steroidal anti-inflammatories (NSAID)
CPT/HCPCS: 36415; 71020; 80053; 81001; 81025; 84484; 85025; 93005; 93010; 99285

== ENCOUNTER 2017-08-12 12:33 | Emergency (ER) | payer MEDICARE, MEDICAID ==
--- NOTE | 2017-08-12 12:54 | ER Document Report ---
ED Medical Screen (RME) - General Chief Complaint: Numbness Stated Complaint: LEFT SIDE PAIN Time Seen by Provider: 08/12/17 12:48 Mode of Arrival: Wheelchair Information source: Patient TRAVEL OUTSIDE OF THE [place] IN LAST 30 DAYS: No - HPI Patient complains to provider of: Left-sided numbness/tingling and weakness Onset: This morning Onset/Duration: Sudden Notes: 08/12/17 12:53 Patient is a 32-year-old female with multiple medical problems and psychiatric illness who presents to the emergency room today complaining of left-sided numbness and weakness that started earlier this morning, she reports pain in her left foot, pain in her chest, weakness in her left upper extremity with tingling sensation throughout the left side of her body, she denies any new medications, she has a history of similar symptoms previously, while interviewing patient she attempts to stick her tongue to the refer of her mouth to make it seem as though her speech is slurred, however when I asked her to clarify several things she is able to speak more clearly - Related Data Allergies/Adverse Reactions: zolpidem tartrate [From Ambien] Allergy (Mild, Verified 07/11/17 15:26) Abnormal behavior ciprofloxacin [From Cipro] Allergy (Verified 07/11/17 15:26) ciprofloxacin HCl [From Cipro] Allergy (Verified 07/11/17 15:26) citalopram [Citalopram] Allergy (Verified 07/11/17 15:26) escitalopram oxalate [From Lexapro] Allergy (Verified 07/11/17 15:26) lamotrigine [From Lamictal] Allergy (Verified 07/11/17 15:26) nitrofurantoin [From Macrobid] Allergy (Verified 07/11/17 15:26) nitrofurantoin macrocrystalline [From Macrobid] Allergy (Verified 07/11/17 15:26 ) Quinolones Allergy (Verified 07/11/17 15:26) ondansetron HCl [From Zofran] Adverse Reaction (Verified 07/11/17 15:26) CATS Allergy (Intermediate, Uncoded 03/10/17 19:11) SQUASH Allergy (Unknown, Uncoded 03/10/17 19:11) serotonin Allergy (Uncoded 03/10/17 19:11) Past Medical History - Past Medical History Cardiac Medical History: Reports: Hx Hypertension Denies: Hx Coronary Artery Disease Pulmonary Medical History: Reports: Hx Asthma Neurological Medical History: Reports: Hx Migraine, Hx Seizures Endocrine Medical History: Reports: Hx Diabetes Mellitus Type 2 Renal/ Medical History: Reports: Hx Ovarian Cysts. Denies: Hx Peritoneal Dialysis GI Medical History: Reports: Hx Gastroesophageal Reflux Disease Musculoskeltal Medical History: Reports Hx Arthritis, Reports Hx Musculoskeletal Trauma Psychiatric Medical History: Reports: Hx Anxiety, Hx Attention Deficit Hyperactivity Disorder, Hx Bipolar Disorder, Hx Depression, Hx Post Traumatic Stress Disorder Past Surgical History: Reports: Hx Abdominal Surgery - LAPARASCOPY X2, Hx Section - x2, Hx Gynecologic Surgery - 5 D&C (MISCARRIAGES), Hx Oral Surgery - Jaw for TMJ and wisdom teeth, Hx Tubal Ligation - Immunizations Immunizations up to date: Yes Hx Diphtheria, Pertussis, Tetanus Vaccination: Yes - UTD Physical Exam - Vital signs Vitals: Temp Pulse Resp BP Pulse Ox 98.5 F 89 16 123/62 97 08/12/17 12:39 08/12/17 12:39 08/12/17 12:39 08/12/17 12:39 08/12/17 12:39 Course - Vital Signs Vital signs: Temp Pulse Resp BP Pulse Ox 98.5 F 89 16 123/62 97 08/12/17 12:39 08/12/17 12:39 08/12/17 12:39 08/12/17 12:39 08/12/17 12:39
[2017-08-12 13:35] LABS: APPEARANCE,URINE CLOUDY; BILIRUBIN,URINE NEGATIVE (NEGATIVE); GLUCOSE, URINE NEGATIVE (NEGATIVE); KETONES,URINE NEGATIVE (NEGATIVE); LEUKOCYTE ESTERASE,URINE NEGATIVE (NEGATIVE); NITRITE,URINE NEGATIVE (NEGATIVE); PROTEIN,URINE NEGATIVE (NEGATIVE); UROBILINOGEN,URINE NEGATIVE mg/dL (<2.0)
[2017-08-12 13:43] LABS: ABSOLUTE BASOPHILS # (AUTO) 0.1 10^3/uL (0.0-0.2); ABSOLUTE EOSINOPHILS # (AUTO) 0.1 10^3/uL (0.0-0.6); ABSOLUTE MONOCYTES (AUTO) 0.5 10^3/uL (0.1-1.4); ABSOLUTE NEUT (AUTO) 4.4 10^3/uL (1.7-8.2); BASOPHILS % (AUTO) 1.2 % (0-2); HEMATOCRIT 35.8 % (36.0-47.0); HEMOGLOBIN 11.9 g/dL (12.0-15.5); HGB HCT DIFFERENCE -0.1; LYMPHOCYTES % (AUTO) 28.9 % (13-45); MEAN CORPUSCULAR HEMOGLOBIN 29.9 pg (27.0-33.4); MEAN CORPUSCULAR HGB CONC 33.4 g/dL (32.0-36.0); MEAN CORPUSCULAR VOLUME 90 fl (80-97); MONOCYTES % (AUTO) 6.5 % (3-13); RED CELL DISTRIBUTION WIDTH 13.8 % (11.5-14.0); SEGMENTED NEUTROPHILS % (AUTO) 62.4 % (42-78)
[2017-08-12 13:46] LABS: URINE BARBITURATES SCREEN NEGATIVE; URINE METHADONE SCREEN NEGATIVE; URINE OPIATES LOW NEGATIVE; URINE PHENCYCLIDINE SCREEN NEGATIVE
[2017-08-12 13:50] LABS: ALANINE AMINOTRANSFERASE 17 U/L (9-52); ALBUMIN 4.4 g/dL (3.5-5.0); ALKALINE PHOSPHATASE 53 U/L (38-126); ANION GAP 12 (5-19); ASPARTATE AMINO TRANSFERASE 17 U/L (14-36); BILIRUBIN,DIRECT 0.3 mg/dL (0.0-0.4); BILIRUBIN,TOTAL 0.3 mg/dL (0.2-1.3); BLOOD UREA NITROGEN 12 mg/dL (7-20); CALCIUM 10.3 mg/dL (8.4-10.2); CARBON DIOXIDE 24 mmol/L (22-30); CHLORIDE 104 mmol/L (98-107); CREATINE KINASE 127 U/L (30-135); GLUCOSE 102 mg/dL (75-110); POTASSIUM 4.3 mmol/L (3.6-5.0); SODIUM 140.2 mmol/L (137-145); TOTAL PROTEIN 7.2 g/dL (6.3-8.2)
[2017-08-12 14:02] LABS: TROPONIN I < 0.012 ng/mL
--- NOTE | 2017-08-12 14:03 | RADIOLOGY REPORT (SQ) ---
EXAM DESCRIPTION: CT HEAD WITHOUT COMPLETED DATE/TIME: 08/12/2017 1:51 pm REASON FOR STUDY: left side tingling COMPARISON: 07/14/2017 TECHNIQUE: Axial images acquired through the brain without intravenous contrast. Images reviewed wi th bone, brain and subdural windows. Images stored on PACS. All CT scanners at this facility use dose modulation, iterative reconstruction, and/or weight based d osing when appropriate to reduce radiation dose to as low as reasonably achievable (ALARA). [facility]: Dose Right [facility]: CareDose [facility]: Dose Right [facility]: Teradose 4D [facility]: Smart [employer] RADIATION DOSE: Up-to-date CT equipment and radiation dose reduction techniques were employed. CTDIv ol: 64.6 mGy. DLP: 1163 mGy-cm. mGy. LIMITATIONS: None. FINDINGS: VENTRICLES: Normal size and contour. CEREBRUM: No masses. No hemorrhage. No midline shift. No evidence for acute infarction. Normal gra y/white matter differentiation. No areas of low density in the white matter. CEREBELLUM: No masses. No hemorrhage. No alteration of density. No evidence for acute infarction. EXTRAAXIAL SPACES: No fluid collections. No masses. ORBITS AND GLOBE: No intra- or extraconal masses. Normal contour of globe without masses. CALVARIUM: No fracture. PARANASAL SINUSES: No fluid or mucosal thickening. SOFT TISSUES: No mass or hematoma. OTHER: No other significant finding. IMPRESSION: NORMAL BRAIN CT WITHOUT CONTRAST. EVIDENCE OF ACUTE STROKE: NO. COMMENT: Quality ID # [id number]: Final reports with documentation of one or more dose reduction techniques (e.g., Automated exposure control, adjustment of the mA and/or kV according to patient size, use of iterative reconstruction technique) TECHNICAL DOCUMENTATION: JOB ID: [id number]- All Rights Reserved
--- NOTE | 2017-08-12 15:56 | ER Document Report ---
ED Neuro Symptoms/Deficit - General Chief Complaint: Numbness Stated Complaint: LEFT SIDE PAIN Time Seen by Provider: 08/12/17 12:48 Mode of Arrival: Wheelchair Notes: Patient says that about 11 AM this morning, while laying in bed, listening to music, she noted stiffness and numbness of her left neck which extended all the way down her left side of her body with pins and needles sensation in her left side including her foot. She also had blurry vision and a fast heartbeat. [place] difficulty breathing. Noted her speech was slurred and she felt confused. She also noticed some pains in the anterior chest and pain in her left foot and she cannot move the left foot or her left arm. She is able to walk with a limp and feels like her left leg is weak. She claims to have passed out. Patient says she awakened at 8 AM this morning and did have food to eat before this episode occurred. Patient has had C-sections and a tubal ligation. Exploratory laparotomy. PMH: Anxiety, schizoaffective disorder, NIDDM, migraine headache, anemia. TRAVEL OUTSIDE OF THE [place] IN LAST 30 DAYS: No - Related Data Allergies/Adverse Reactions: zolpidem tartrate [From Ambien] Allergy (Mild, Verified 07/11/17 15:26) Abnormal behavior ciprofloxacin [From Cipro] Allergy (Verified 07/11/17 15:26) ciprofloxacin HCl [From Cipro] Allergy (Verified 07/11/17 15:26) citalopram [Citalopram] Allergy (Verified 07/11/17 15:26) escitalopram oxalate [From Lexapro] Allergy (Verified 07/11/17 15:26) lamotrigine [From Lamictal] Allergy (Verified 07/11/17 15:26) nitrofurantoin [From Macrobid] Allergy (Verified 07/11/17 15:26) nitrofurantoin macrocrystalline [From Macrobid] Allergy (Verified 07/11/17 15:26 ) Quinolones Allergy (Verified 07/11/17 15:26) ondansetron HCl [From Zofran] Adverse Reaction (Verified 07/11/17 15:26) CATS Allergy (Intermediate, Uncoded 03/10/17 19:11) SQUASH Allergy (Unknown, Uncoded 03/10/17 19:11) serotonin Allergy (Uncoded 03/10/17 19:11) Home Medications: Current Home Medications Aripiprazole [Abilify] 10 mg PO Q12 08/12/17 [History] Diazepam 5 mg PO Q8HP PRN 08/12/17 [History] Divalproex Sodium [Divalproex Sodium ER] 500 mg PO QHS 08/12/17 [History] Ergocalciferol (Vitamin D2) [Vitamin D2] 1 cap PO RITTER@1000 08/12/17 [History] Ferrous Sulfate [Feosol] 325 mg PO Q12 08/12/17 [History] Fluticasone/Salmeterol [Advair 500-50 Diskus 28 Dose] 2 puff IN Q12 08/12/17 [ History] Gabapentin [Neurontin 300 mg Capsule] 300 mg PO Q8 08/12/17 [History] Meloxicam [Mobic] 15 mg PO DAILY 08/12/17 [History] Metformin HCl [Metformin HCl ER] 500 mg PO Q12 08/12/17 [History] Metoprolol Tartrate [Lopressor 25 mg Tablet] 12.5 mg PO Q12 08/12/17 [History] Pantoprazole Sodium [Protonix] 40 mg PO DAILY 08/12/17 [History] Polyethylene Glycol 3350 [Miralax] 17 gm PO DAILY 08/12/17 [History] Prazosin HCl [Minipress] 2 mg PO QHS 08/12/17 [History] Quetiapine Fumarate [Seroquel Xr] 300 mg PO QHS 08/12/17 [History] Rizatriptan Benzoate [Rizatriptan] 10 mg PO DAILYP PRN 08/12/17 [History] Simvastatin [Zocor 20 mg Tablet] 20 mg PO QHS 08/12/17 [History] Trazodone HCl [Desyrel] 150 mg PO QHS 08/12/17 [History] Valacyclovir HCl [Valtrex] 1,000 mg PO DAILY 08/12/17 [History] Past Medical History - General Information source: Patient - Social History Smoking Status: Never Smoker Chew tobacco use (# tins/day): No Frequency of alcohol use: Occasional Drug Abuse: None Family History: Arthritis, CAD, CVA, DM, Hyperlipidemia, Hypertension, Malignancy, Other - mental health issues - Past Medical History Cardiac Medical History: Reports: Hx Hypertension Pulmonary Medical History: Reports: Hx Asthma Neurological Medical History: Reports: Hx Migraine, Hx Seizures Endocrine Medical History: Reports: Hx Diabetes Mellitus Type 2 Renal/ Medical History: Reports: Hx Ovarian Cysts GI Medical History: Reports: Hx Gastroesophageal Reflux Disease Musculoskeltal Medical History: Reports Hx Arthritis, Reports Hx Musculoskeletal Trauma Psychiatric Medical History: Reports: Hx Anxiety, Hx Attention Deficit Hyperactivity Disorder, Hx Bipolar Disorder, Hx Depression, Hx Post Traumatic Stress Disorder Past Surgical History: Reports: Hx Abdominal Surgery - LAPARASCOPY X2, Hx Section - x2, Hx Gynecologic Surgery - 5 D&C (MISCARRIAGES), Hx Oral Surgery - Jaw for TMJ and wisdom teeth, Hx Tubal Ligation - Immunizations Immunizations up to date: Yes Hx Diphtheria, Pertussis, Tetanus Vaccination: Yes - UTD Hx Pneumococcal Vaccination: 11/13/13 Review of Systems - Review of Systems Notes: REVIEW OF SYSTEMS: CONSTITUTIONAL : Denies fever. EENT: Denies eye, ear, nose or mouth or throat pain or other symptoms. CARDIOVASCULAR: See HPI. RESPIRATORY: Denies cough, chest congestion, or shortness of breath. GASTROINTESTINAL: Denies abdominal pain or nausea, vomiting, or diarrhea. GENITOURINARY: Denies difficulty or painful urinating, urinary frequency, blood in urine. MUSCULOSKELETAL: Denies back or neck pain. Denies joint pain or swelling. SKIN: Denies rash or skin lesions. NEUROLOGICAL: See HPI. Patient still claims to have weakness of the left side.. ALL OTHER SYSTEMS REVIEWED AND NEGATIVE. Physical Exam - Vital signs Vitals: Temp Pulse Resp BP Pulse Ox 98.5 F 89 16 123/62 97 08/12/17 12:39 08/12/17 12:39 08/12/17 12:39 08/12/17 12:39 08/12/17 12:39 Interpretation: Normal - Notes Notes: PHYSICAL EXAMINATION: GENERAL: Well-appearing, in no acute distress. Vital signs are all normal. HEAD: Atraumatic, normocephalic. EYES: Pupils equal round and reactive to light, extraocular movements intact. ENT: oropharynx clear without exudates. Moist mucous membranes. Talking in a somewhat pseudo-falsetto voice, higher pitch than normal and breaking up as she is talking. NECK: Normal range of motion, supple. No carotid bruits. LUNGS: Breath sounds clear and equal bilaterally. HEART: Regular rate and rhythm without murmurs. ABDOMEN: Soft, nontender. No guarding or rebound. BACK: No tenderness throughout entire back. EXTREMITIES: Normal range of motion without pain. NEUROLOGICAL: See above where patient described as talking in a pseudo-falsetto voice. Patient can stand and does not require assistance to walk to the sink and turned around and walked back to the bed. She seems to have a slight limp in doing so. Normal sensory, motor, and reflex exams. Awake, alert, and oriented x3. Cranial nerves normal. No facial asymmetry. Patient says she cannot move her left arm but can lift her right arm. I got her to raise her right arm up fully and she was able to hold it in that position. I held her right arm over her face and let go of it and she brings it down to her side and it does not hit her face. I then went to her affected side, with the left arm, and fully extended above her face and on 5 separate times, I let go of her arm over her mid forehead and face area which could not avoid hitting her in the face if she had legitimate total weakness of the arm as she claims. On each of those 5 occasions, her left arm movement fell immediately to her side, avoiding touching any part of her face. If she had true, legitimate weakness of that left upper extremity, she would have had to have hit herself in the face on all 5 occasions of my dropping her arm. PSYCH: Normal mood, normal affect. SKIN: Warm, dry, no rashes. Course - Re-evaluation Re-evalutation: 08/12/17 19:21 I am quite certain that this patient's symptoms are explainable on a psychiatric basis. I have seen her in this emergency department on a couple of occasions in the past. She has been here to this emergency department 9 times, thus far, in 2017. On the previous visits with this patient when I saw her, I felt that she had psychosomatic illness on those occasions, as well. Patient was reassured everything will be fine and she is to follow-up with her primary care physician. - Vital Signs Vital signs: Temp Pulse Resp BP Pulse Ox 98.2 F 79 18 116/69 100 08/12/17 12:47 08/12/17 12:47 08/12/17 12:47 08/12/17 12:47 08/12/17 12:47 - Laboratory Result Diagrams: 08/12/17 13:16 08/12/17 13:16 Laboratory results interpreted by me: 08/12/17 08/12/17 13:16 13:16 Hgb 11.9 L Hct 35.8 L Calcium 10.3 H 08/12/17 19:20 All lab studies are completely normal. - Diagnostic Test Radiology reviewed: Image reviewed, Reports reviewed - CT of the brain is normal. Discharge - Discharge Clinical Impression: Left-sided weakness, Anxiety Condition: Stable Disposition: HOME, SELF-CARE Additional Instructions: Weakness We did not find a definite cause for your weakness. This may require further medical tests. Weakness can be caused by infection, physical exhaustion , rapid weight loss, dehydration, or medicine side effects. Diseases of the muscles, heart, nerves, and blood vessels can make you weak. Sometimes the problem is simply depression or lack of exercise. You should get plenty of rest. Unless the doctor tells you otherwise, it's usually best to add short periods of regular mild exercise. Eat a nutritious diet with multiple small, low-sugar meals. If symptoms continue, additional medical evaluation will be necessary. Be sure to follow up as instructed. If you become very dizzy, nauseated, or feel like you're going to faint, lie down right away. Wait until the symptoms have passed before you get up again. Stand up slowly. Call the doctor or return if you develop chest pain, abdominal pain, severe headache, irregular heartbeat or very fast pulse, confusion, vision problems, fever, muscular pain, or any other new symptom. NORMAL EXAM AND WORKUP: At this time, your examination and workup show no significant abnormality. No significant abnormal physical findings were noted. All laboratory, EKG, and imaging (x-ray, CT scans, ultrasound) studies that were ordered show no significant abnormality. Although your examination and all studies that were ordered showed no significant abnormal finding, there are no examinations and no studies that are 100% accurate. There is always the possibility that some abnormality could exist and not be detected with physical examination or within the limits and capabilities of laboratory and other studies. You should return or follow up as you were instructed on your visit today for further evaluation if your symptoms do not resolve. FOLLOW-UP CARE: If you have been referred to a physician for follow-up care, call the physician s office for an appointment as you were instructed or within the next two days. If you experience worsening or a significant change in your symptoms, notify the physician immediately or return to the Emergency Department at any time for re-evaluation. Referrals: [facility] [Provider Group] - Follow up in 3-5 days
[2017-08-12 16:23] VITALS: BP 116/69
--- NOTE | 2017-08-12 16:29 | EKG REPORT ---
SEVERITY:- BORDERLINE ECG - SINUS RHYTHM INFERIOR Q WAVES, PROBABLY NORMAL VARIATION : Confirmed by: Michele Robert 12-Aug-2017 16:29:01
== END 2017-08-12 16:24 | disposition home or self-care (01) ==
LOC: ER 12:33
DX: R20.0 Anesthesia of skin (principal); M54.2 Cervicalgia; H53.8 Other visual disturbances; R07.9 Chest pain, unspecified; R06.02 Shortness of breath; F41.9 Anxiety disorder, unspecified; F25.9 Schizoaffective disorder, unspecified; Z79.899 Other long term (current) drug therapy; R53.1 Weakness
CPT/HCPCS: 36415; 70450; 80053; 80307; 81001; 82550; 82553; 84484; 84703; 85025; 87086; 93005; 93010; 99285

== ENCOUNTER 2017-09-09 11:41 | Emergency (ER) | payer MEDICARE, MEDICAID ==
--- NOTE | 2017-09-09 12:57 | RADIOLOGY REPORT (SQ) ---
EXAM DESCRIPTION: CHEST SINGLE VIEW COMPLETED DATE/TIME: 09/09/2017 12:32 pm REASON FOR STUDY: cp COMPARISON: 07/11/2017 EXAM PARAMETERS: NUMBER OF VIEWS: One view. TECHNIQUE: Single frontal radiographic view of the chest acquired. RADIATION DOSE: NA LIMITATIONS: None. FINDINGS: LUNGS AND PLEURA: Subsegmental parenchymal density lateral to the left heart border. No e ffusions MEDIASTINUM AND HILAR STRUCTURES: No masses. Contour normal. HEART AND VASCULAR STRUCTURES: Heart normal in size. Normal vasculature. BONES: No acute findings. HARDWARE: None in the chest. OTHER: No other significant finding. IMPRESSION: Atelectasis or early pneumonia left lower lobe. TECHNICAL DOCUMENTATION: JOB ID: [id number]
--- NOTE | 2017-09-09 13:05 | ER Document Report ---
ED General - General Chief Complaint: Chest Pain Stated Complaint: CHEST PAIN Time Seen by Provider: 09/09/17 12:19 Mode of Arrival: Ambulatory Information source: Patient TRAVEL OUTSIDE OF THE [place] IN LAST 30 DAYS: No - HPI Onset: Yesterday Onset/Duration: Gradual Quality of pain: Dull Severity: Mild Associated symptoms: None Exacerbated by: Denies Relieved by: Denies Notes: Patient is a 32-year-old female who presents with 2 days of left-sided chest pain. Patient has had numerous emergency department visits for chest pain with negative workups. Patient denies any shortness of breath, nausea, sweats. No fevers or chills. Patient states she recently had an echocardiogram that demonstrated "fluid around her heart". She has not followed up with her component inspector for discussion of the echo results yet. - Related Data Allergies/Adverse Reactions: zolpidem tartrate [From Ambien] Allergy (Mild, Verified 07/11/17 15:26) Abnormal behavior ciprofloxacin [From Cipro] Allergy (Verified 07/11/17 15:26) ciprofloxacin HCl [From Cipro] Allergy (Verified 07/11/17 15:26) citalopram [Citalopram] Allergy (Verified 07/11/17 15:26) escitalopram oxalate [From Lexapro] Allergy (Verified 07/11/17 15:26) lamotrigine [From Lamictal] Allergy (Verified 07/11/17 15:26) nitrofurantoin [From Macrobid] Allergy (Verified 07/11/17 15:26) nitrofurantoin macrocrystalline [From Macrobid] Allergy (Verified 07/11/17 15:26 ) Quinolones Allergy (Verified 07/11/17 15:26) ondansetron HCl [From Zofran] Adverse Reaction (Verified 07/11/17 15:26) CATS Allergy (Intermediate, Uncoded 03/10/17 19:11) SQUASH Allergy (Unknown, Uncoded 03/10/17 19:11) serotonin Allergy (Uncoded 03/10/17 19:11) Past Medical History - General Information source: Patient, [facility] Records - Social History Smoking Status: Never Smoker Family History: Arthritis, CAD, CVA, DM, Hyperlipidemia, Hypertension, Malignancy, Other - mental health issues - Past Medical History Cardiac Medical History: Reports: Hx Hypertension Denies: Hx Coronary Artery Disease Pulmonary Medical History: Reports: Hx Asthma Neurological Medical History: Reports: Hx Migraine, Hx Seizures Endocrine Medical History: Reports: Hx Diabetes Mellitus Type 2 Renal/ Medical History: Reports: Hx Ovarian Cysts. Denies: Hx Peritoneal Dialysis GI Medical History: Reports: Hx Gastroesophageal Reflux Disease Musculoskeltal Medical History: Reports Hx Arthritis, Reports Hx Musculoskeletal Trauma Psychiatric Medical History: Reports: Hx Anxiety, Hx Attention Deficit Hyperactivity Disorder, Hx Bipolar Disorder, Hx Depression, Hx Post Traumatic Stress Disorder Past Surgical History: Reports: Hx Abdominal Surgery - LAPARASCOPY X2, Hx Section - x2, Hx Gynecologic Surgery - 5 D&C (MISCARRIAGES), Hx Oral Surgery - Jaw for TMJ and wisdom teeth, Hx Tubal Ligation - Immunizations Immunizations up to date: Yes Hx Diphtheria, Pertussis, Tetanus Vaccination: Yes - UTD Hx Pneumococcal Vaccination: 11/13/13 Review of Systems - Review of Systems Cardiovascular: Chest pain -: Yes All other systems reviewed and negative Physical Exam - Vital signs Vitals: Resp Pulse Ox 25 H 96 09/09/17 12:29 09/09/17 12:29 Interpretation: Normal - General General appearance: Appears well, Alert - HEENT Head: Normocephalic, Atraumatic Eyes: Normal Pupils: PERRL - Respiratory Respiratory status: No respiratory distress Chest status: Nontender Breath sounds: Normal Chest palpation: Normal - Cardiovascular Rhythm: Regular Heart sounds: Normal auscultation Murmur: No - Abdominal Inspection: Normal Distension: No distension Bowel sounds: Normal Tenderness: Nontender Organomegaly: No organomegaly - Back Back: Normal, Nontender - Extremities General upper extremity: Normal inspection, Nontender, Normal color, Normal ROM , Normal temperature General lower extremity: Normal inspection, Nontender, Normal color, Normal ROM , Normal temperature, Normal weight bearing. No: Coty's sign - Neurological Neuro grossly intact: Yes Cognition: Normal Orientation: AAOx4 [place] Coma Scale Eye Opening: Spontaneous [place] Coma Scale Verbal: Oriented [place] Coma Scale Motor: Obeys Commands [place] Coma Scale Total: 15 Speech: Normal Motor strength normal: LUE, RUE, LLE, RLE Sensory: Normal - Psychological Associated symptoms: Normal affect, Normal mood - Skin Skin Temperature: Warm Skin Moisture: Dry Skin Color: Normal Course - Re-evaluation Re-evalutation: 09/09/17 14:01 Patient is not ill-appearing. She has normal vital signs. Her cardiac workup is unremarkable. I have discussed the chest x-ray results with her and will start her on azithromycin for mild community-acquired pneumonia. She is breathing comfortably. She has not coughed. Discussed need for cardiology follow-up on Monday. - Vital Signs Vital signs: Temp Pulse Resp BP Pulse Ox 15 112/71 95 09/09/17 13:24 09/09/17 13:24 09/09/17 13:24 - Laboratory Result Diagrams: 09/09/17 12:58 09/09/17 12:58 Laboratory results interpreted by me: 09/09/17 12:58 Hgb 11.7 L Hct 35.3 L - Diagnostic Test Radiology reviewed: Reports reviewed Radiology results interpreted by me: 09/09/17 13:04 Early left lower lobe infiltrate per radiology - EKG Interpretation by Me EKG shows normal: Sinus rhythm Rate: Normal - 101 Rhythm: NSR Discharge - Discharge Clinical Impression: Pneumonia Disposition: HOME, SELF-CARE Instructions: Pneumonia ([facility]) Additional Instructions: Follow-up with your primary care doctor and/or your component inspector on Monday. Return to the emergency department if worse or for any other problems. Prescriptions: RX: Azithromycin [Zithromax 250 mg Tablet] 250 mg PO ASDIR PRN #6 tablet PRN Reason: Referrals: TARUN VILLAFANA MD [Primary Care Provider] - Follow up as needed MARYAN ROWELL MD [ACTIVE STAFF] - Follow up as needed
[2017-09-09 13:25] LABS: ABSOLUTE BASOPHILS # (AUTO) 0.1 10^3/uL (0.0-0.2); ABSOLUTE EOSINOPHILS # (AUTO) 0.1 10^3/uL (0.0-0.6); ABSOLUTE LYMPHOCYTES (AUTO) 2.1 10^3/uL (0.5-4.7); ABSOLUTE MONOCYTES (AUTO) 0.5 10^3/uL (0.1-1.4); ABSOLUTE NEUT (AUTO) 4.2 10^3/uL (1.7-8.2); BASOPHILS % (AUTO) 0.9 % (0-2); EOSINOPHILS % (AUTO) 1.6 % (0-6); HEMATOCRIT 35.3 % (36.0-47.0); HEMOGLOBIN 11.7 g/dL (12.0-15.5); HGB HCT DIFFERENCE -0.2; LYMPHOCYTES % (AUTO) 30.1 % (13-45); MEAN CORPUSCULAR HEMOGLOBIN 29.8 pg (27.0-33.4); MEAN CORPUSCULAR VOLUME 90 fl (80-97); MONOCYTES % (AUTO) 7.7 % (3-13); RED BLOOD COUNT 3.91 10^6/uL (3.72-5.28); RED CELL DISTRIBUTION WIDTH 13.3 % (11.5-14.0); SEGMENTED NEUTROPHILS % (AUTO) 59.7 % (42-78); WHITE BLOOD COUNT 7.1 10^3/uL (4.0-10.5)
--- NOTE | 2017-09-09 13:38 | EKG REPORT ---
SEVERITY:- OTHERWISE NORMAL ECG - SINUS TACHYCARDIA : Confirmed by: Michele Robert 09-Sep-2017 13:37:18
[2017-09-09 13:40] LABS: ALANINE AMINOTRANSFERASE 30 U/L (9-52); ALBUMIN 4.3 g/dL (3.5-5.0); ALKALINE PHOSPHATASE 56 U/L (38-126); ANION GAP 11 (5-19); ASPARTATE AMINO TRANSFERASE 27 U/L (14-36); BILIRUBIN,DIRECT 0.4 mg/dL (0.0-0.4); BILIRUBIN,TOTAL 0.5 mg/dL (0.2-1.3); BLOOD UREA NITROGEN 9 mg/dL (7-20); CALCIUM 9.7 mg/dL (8.4-10.2); CARBON DIOXIDE 26 mmol/L (22-30); CHLORIDE 104 mmol/L (98-107); CREATININE RESULT 0.67 mg/dL (0.52-1.25); GLUCOSE 89 mg/dL (75-110); POTASSIUM 4.7 mmol/L (3.6-5.0); SODIUM 141.1 mmol/L (137-145)
[2017-09-09] MEDS ORDERED: AZITHROMYCIN 250 MG TABLET PO ONE (13:59)
[2017-09-09 14:14] VITALS: BP 111/83
== END 2017-09-09 14:15 | disposition home or self-care (01) ==
LOC: ER 11:41
DX: J18.9 Pneumonia, unspecified organism (principal); R07.9 Chest pain, unspecified
CPT/HCPCS: 93005; 99285; 36415; 85025; 80053; 84484; 71010; 93010; A9270

== ENCOUNTER 2017-10-16 05:31 | Inpatient (IN) | payer MEDICARE, MEDICAID ==
--- NOTE | 2017-10-13 13:12 | EKG REPORT ---
SEVERITY:- BORDERLINE ECG - SINUS TACHYCARDIA BORDERLINE T ABNORMALITIES, ANTERIOR LEADS : Confirmed by: Sav Villareal MD 13-Oct-2017 13:12:04
[2017-10-13 13:28] LABS: HEMOGLOBIN 12.3 g/dL (12.0-15.5); MEAN CORPUSCULAR HEMOGLOBIN 29.9 pg (27.0-33.4); MEAN CORPUSCULAR HGB CONC 33.3 g/dL (32.0-36.0); MEAN CORPUSCULAR VOLUME 90 fl (80-97); PLATELET COUNT 254 10^3/uL (150-450); RED BLOOD COUNT 4.13 10^6/uL (3.72-5.28); RED CELL DISTRIBUTION WIDTH 12.4 % (11.5-14.0); WHITE BLOOD COUNT 8.6 10^3/uL (4.0-10.5)
[2017-10-13 13:48] LABS: APPEARANCE,URINE SLIGHTLY-CLOUDY; BILIRUBIN,URINE NEGATIVE (NEGATIVE); COLOR,URINE YELLOW; GLUCOSE, URINE NEGATIVE (NEGATIVE); KETONES,URINE TRACE mg/dL (NEGATIVE); LEUKOCYTE ESTERASE,URINE NEGATIVE (NEGATIVE); NITRITE,URINE NEGATIVE (NEGATIVE); PROTEIN,URINE NEGATIVE (NEGATIVE); URINE SPECIFIC GRAVITY 1.027
[2017-10-13 13:51] LABS: ADD MANUAL MICROSCOPIC YES; CALCIUM OXALATE CRYSTALS,UR FEW /HPF; WBC,URINE 0-1 /HPF
[2017-10-13 13:57] LABS: ALANINE AMINOTRANSFERASE 24 U/L (9-52); ALBUMIN 4.6 g/dL (3.5-5.0); ALKALINE PHOSPHATASE 69 U/L (38-126); ASPARTATE AMINO TRANSFERASE 18 U/L (14-36); BILIRUBIN,DIRECT 0.3 mg/dL (0.0-0.4); BILIRUBIN,TOTAL 0.3 mg/dL (0.2-1.3); BLOOD UREA NITROGEN 9 mg/dL (7-20); CARBON DIOXIDE 20 mmol/L (22-30); CHLORIDE 103 mmol/L (98-107); GLUCOSE 95 mg/dL (75-110); TOTAL PROTEIN 7.4 g/dL (6.3-8.2)
[2017-10-13 14:10] LABS: POTASSIUM 4.6 mmol/L (3.6-5.0); SODIUM 143.5 mmol/L (137-145)
[2017-10-13 14:14] LABS: ANION GAP 21 (5-19)
[~2017-10-16 05:31] MED LIST: CEFAZOLIN 2 GM/D5W RTU 2 GM/50 ML RTUPB IV PRN; LACTATED RINGERS 1000 ML IV PRN; LIDOCAINE 0.5% INJ-PF (5 MG/ML) 50 ML SDV SUBCUT PRN
[2017-10-16] MEDS ORDERED: MIDAZOLAM 2 MG/2 ML INJ ONE ×2 (06:46→06:56)
[2017-10-16] MEDS ORDERED: PROPOFOL INJ 200 MG/20 ML VIAL IV ONE (06:46)
[2017-10-16] MEDS ORDERED: ACETAMINOPHEN 100 ML IV ONE (06:46)
[2017-10-16] MEDS ORDERED: FENTANYL CITRATE INJ/PF 100 MCG/2 ML AMPUL ONE ×4 (06:46→11:40)
[2017-10-16] MEDS ORDERED: HYDROMORPHONE HCL INJ/PF 2 MG/ML AMPULE ONE (06:47)
[2017-10-16] MEDS ORDERED: PROMETHAZINE HCL INJ 25 MG/1 ML VIAL IV PRN ×2 (09:22)
[2017-10-16] MEDS ORDERED: FENTANYL CITRATE INJ/PF 100 MCG/2 ML AMPUL IV PRN ×3 (09:22)
[2017-10-16] MEDS ORDERED: MEPERIDINE HCL/PF INJ 25 MG/1 ML DISP.SYRIN IV PRN (09:22)
[2017-10-16] MEDS ORDERED: MORPHINE SULFATE 10 MG/ML INJ IV PRN (09:22)
[2017-10-16] MEDS ORDERED: DIPHENHYDRAMINE HCL 50 MG/ML VIAL IV PRN (09:22)
--- NOTE | 2017-10-16 11:06 | Operative Report ---
Operative Report DATE OF SURGERY: 10/16/17 PREOPERATIVE DIAGNOSIS: Uterine pain, heavy menses POSTOPERATIVE DIAGNOSIS: Same as well as dense uterine adhesions to the anterior pelvis. Also omental adhesions to the anterior abdominal wall. OPERATION: Lysis of adhesions. The case started as initially in a robotic hysterectomy but we converted to a open hysterectomy. The fallopian tubes were also removed. SURGEON: JUAN MONDRAGON [facility] NURSE: NATALIE ROBLERO ANESTHESIA: GA TISSUE REMOVED OR ALTERED: Uterus and fallopian tubes including the tubal clips. COMPLICATIONS: None ESTIMATED BLOOD LOSS: 250 cc INTRAOPERATIVE FINDINGS: Very dense omental and uterine adhesions to the anterior abdominal wall and pelvis PROCEDURE: The patient was taken back to the OR and placed in a supine position. General anesthesia was induced. She was placed in the dorsolithotomy position using Miko stirrups in her abdomen perineum and vagina were prepared and draped in a sterile fashion. A Cox catheter was placed. A speculum was placed and the anterior lip of the cervix was grasped with a tenaculum. The cervix was dilated and a V care uterine manipulator was placed. Next an incision was made above the umbilicus. The fascia was grasped with Aubrey clamps and elevated. The fascia was incised entering the the abdominal cavity. A blunt port was placed. Laparoscopy confirmed appropriate placement and the abdomen was insufflated with CO2 gas. Dense omental adhesions were seen anteriorly. The uterus could not be seen at this point. The lateral ports were then placed under laparoscopic visualization. The right lower quadrant port was also placed under laparoscopic visualization. The insufflator device was then attached to the right lower quadrant port. The patient was placed in Trendelenburg position and the robot docked. The omental adhesions were taken down carefully using sharp and blunt dissection. There was no bowel present in the omental adhesions to the anterior abdominal wall. Once the omental adhesions were down the uterus could be seen and once again extremely dense adhesions were seen from the fundus of the uterus. The fallopian tubes were also stuck to the anterior abdominal wall. The fallopian tubes were removed and the tubal clips removed as well. The ovaries appeared normal and were left in place. Next the round ligaments were cauterized and cut bilaterally using bipolar the monopolar cautery. The utero-ovarian pedicles were likewise cauterized and cut using bipolar monopolar cautery. The broad ligaments were cauterized and cut using bipolar monopolar cautery. Next we began the uterus from the anterior abdominal wall carefully to avoid injury to the bladder. Bleeding became somewhat problematic at this point and the adhesions were very dense. Approximately retirement down the uterine fundus began to notice very large vessels and at this point decided to go with an open hysterectomy. Incision was made in a transverse fashion and carried down to the fascia which was nicked in midline. The fascial incision was extended bilaterally using curved Ramos scissors. The fascia was off the rectus muscles using sharp and blunt dissection. Rectus muscles were in midline and the peritoneum was entered without incident. A Callie retractor was placed. Bowel contents were packed back with moist lap sponges. We used 2 towels and 2 moist lap sponges to pack. All of these were removed at the end of the case. Uterus was grasped with Jc thyroid clamp. And using sharp and blunt dissection the uterus was off the anterior abdominal wall and the cervix was off the anterior abdominal wall and bladder. The bladder did not appear to be injured. The uterine arteries were clamped cut and ligated bilaterally using curved Jordyn clamp and transfixation suture of 0 Vicryl. The cardinal ligaments were clamped cut and ligated bilaterally using straight Jordyn clamp and transfixation suture of 0 Vicryl. The cervix was noted to be quite long. The vaginal angles were clamped cut and ligated bilaterally using curved Jordyn clamp and transfixation suture of 0 Vicryl. The cervix was cut free from the vaginal cuff. The vaginal cuff was closed with interrupted 0 Vicryl sutures. Hemostasis was good at the surgical pedicles. There was some bleeding from the anterior pelvic wall. Surgifoam was used at the anterior pelvic wall to assist with stopping the small areas of bleeding from the dense adhesions. The ureters were inspected at the end of the case and were not dilated. All instruments and sponges were removed from the pelvis. The abdominal wall peritoneum was closed with a 3-0 chromic stitch. The subfascial tissues were inspected for bleeding the fascia was closed with a running 0 Vicryl in 2 segments. The wound was irrigated Kaila's layer was closed with 2 oh plain gut stitch and skin closed with a running subcuticular 4-0 undyed Vicryl stitch. The fascia at the umbilicus was closed with a 2-0 Vicryl stitch. The skin at all 4 laparoscopy sites closed with a 4- 0 undyed Vicryl stitch. The patient was extubated in the OR and taken recovery room in stable condition.
[2017-10-16] MEDS ORDERED: HYDROMORPHONE HCL INJ/PF 2 MG/ML AMPULE IV PRN (11:22)
[2017-10-16] MEDS ORDERED: HYDROMORPHONE HCL 2 MG TABLET PO PRN (11:23)
[2017-10-16] MEDS ORDERED: KETOROLAC TROMETHAMINE INJ/PF 30 MG/1 ML SDV ONE (11:37)
[2017-10-16] MEDS ORDERED: FENTANYL CITRATE INJ/PF 100 MCG/2 ML AMPUL INJ ONE (11:55)
[2017-10-16] MEDS: HYDROMORPHONE HCL INJ/PF 2 MG/ML AMPULE IV PRN ×2 (12:54→15:43)
[2017-10-16] MEDS ORDERED: VECURONIUM BROMIDE INJ 10 MG VIAL IV ONE (13:24)
[2017-10-16] MEDS ORDERED: KETOROLAC TROMETHAMINE 60 MG/2 ML SDV ONE (13:24)
[2017-10-16] MEDS ORDERED: DEXAMETHASONE SOD PHOSPHATE INJ 4 MG/1 ML VIAL ONE (13:24)
[2017-10-16] MEDS ORDERED: SUCCINYLCHOLINE CHLORIDE INJ 200 MG/10 ML VIAL ONE (13:24)
[2017-10-16] MEDS ORDERED: GLYCOPYRROLATE INJ 0.4 MG/2 ML VIAL ONE (13:24)
[2017-10-16] MEDS ORDERED: NEOSTIGMINE METHYLSULFATE 10 MG/10 ML VIAL ONE (13:24)
[2017-10-16] MEDS ORDERED: (PENDING PHARMACY ID) (Quetiapine Fumarate [Seroquel Xr] 400 MG) PO SCH ×2 (15:00→22:00)
[2017-10-16 15:12] LABS: HEMATOCRIT 32.2 % (36.0-47.0); HEMOGLOBIN 10.4 g/dL (12.0-15.5); MEAN CORPUSCULAR HEMOGLOBIN 29.1 pg (27.0-33.4); MEAN CORPUSCULAR HGB CONC 32.2 g/dL (32.0-36.0); MEAN CORPUSCULAR VOLUME 90 fl (80-97); PLATELET COUNT 221 10^3/uL (150-450); RED BLOOD COUNT 3.56 10^6/uL (3.72-5.28); RED CELL DISTRIBUTION WIDTH 12.9 % (11.5-14.0); WHITE BLOOD COUNT 15.5 10^3/uL (4.0-10.5)
[2017-10-16 15:33] LABS: ANION GAP 17 (5-19); BLOOD UREA NITROGEN 10 mg/dL (7-20); CALCIUM 8.7 mg/dL (8.4-10.2); CARBON DIOXIDE 18 mmol/L (22-30); CHLORIDE 100 mmol/L (98-107); GLUCOSE 232 mg/dL (75-110); POTASSIUM 4.2 mmol/L (3.6-5.0)
[2017-10-16] MEDS ORDERED: LORAZEPAM 1 MG TABLET ONE (16:56)
[2017-10-16] MEDS: HYDROMORPHONE HCL 2 MG TABLET PO PRN ×2 (17:00→22:52)
[2017-10-16] MEDS ORDERED: LORAZEPAM 1 MG TABLET PO SCH ×3 (18:00→22:00)
[2017-10-16] MEDS: IBUPROFEN 800 MG TABLET PO SCH (18:03)
[2017-10-16] MEDS: ARIPIPRAZOLE 5 MG TABLET PO SCH (21:16)
[2017-10-16] MEDS: TEMAZEPAM 15 MG CAPSULE PO SCH (21:17)
[2017-10-16] MEDS: DIVALPROEX SODIUM 500 MG TAB.SR.24H PO SCH (21:17)
[2017-10-16] MEDS: LORAZEPAM 1 MG TABLET PO SCH (21:18)
[2017-10-16] MEDS: GABAPENTIN 300 MG CAPSULE PO SCH (21:18)
[2017-10-16] MEDS ORDERED: ARIPIPRAZOLE 10 MG PO SCH (22:00)
[2017-10-17] MEDS: HYDROMORPHONE HCL 2 MG TABLET PO PRN ×2 (03:53→07:15)
[2017-10-17] MEDS: GABAPENTIN 300 MG CAPSULE PO SCH ×3 (05:54→21:05)
[2017-10-17] MEDS: SIMETHICONE 80 MG TAB.CHEW PO PRN (05:57)
[2017-10-17 07:25] LABS: HEMATOCRIT 31.2 % (36.0-47.0); HEMOGLOBIN 10.3 g/dL (12.0-15.5); MEAN CORPUSCULAR HEMOGLOBIN 29.5 pg (27.0-33.4); MEAN CORPUSCULAR VOLUME 90 fl (80-97); PLATELET COUNT 218 10^3/uL (150-450); RED BLOOD COUNT 3.48 10^6/uL (3.72-5.28); RED CELL DISTRIBUTION WIDTH 12.8 % (11.5-14.0); WHITE BLOOD COUNT 12.9 10^3/uL (4.0-10.5)
[2017-10-17 07:30] LABS: ALANINE AMINOTRANSFERASE 23 U/L (9-52); ALBUMIN 3.7 g/dL (3.5-5.0); ALKALINE PHOSPHATASE 58 U/L (38-126); ANION GAP 14 (5-19); ASPARTATE AMINO TRANSFERASE 25 U/L (14-36); BILIRUBIN,DIRECT 0.2 mg/dL (0.0-0.4); BILIRUBIN,TOTAL 0.3 mg/dL (0.2-1.3); BLOOD UREA NITROGEN 6 mg/dL (7-20); CALCIUM 8.6 mg/dL (8.4-10.2); CARBON DIOXIDE 23 mmol/L (22-30); CHLORIDE 102 mmol/L (98-107); GLUCOSE 137 mg/dL (75-110); POTASSIUM 4.1 mmol/L (3.6-5.0); SODIUM 138.6 mmol/L (137-145); TOTAL PROTEIN 6.4 g/dL (6.3-8.2)
[2017-10-17] MEDS: ARIPIPRAZOLE 5 MG TABLET PO SCH ×2 (09:31→21:05)
[2017-10-17] MEDS: LORAZEPAM 1 MG TABLET PO SCH ×2 (09:31→21:05)
[2017-10-17] MEDS: IBUPROFEN 800 MG TABLET PO SCH ×2 (09:32→17:33)
[2017-10-17] MEDS ORDERED: DIPHENHYDRAMINE HCL 25 MG CAPSULE ONE (11:19)
[2017-10-17] MEDS ORDERED: DIPHENHYDRAMINE HCL 25 MG CAPSULE PO PRN (11:22)
[2017-10-17] MEDS ORDERED: DIPHENHYDRAMINE HCL 50 MG CAPSULE PO PRN (13:29)
[2017-10-17] MEDS ORDERED: DIPHENHYDRAMINE HCL 25 MG CAPSULE PO ONE (14:00)
--- NOTE | 2017-10-17 16:50 | PDOC PROGRESS REPORT ---
Subjective Progress Note for:: 10/17/17 Subjective:: Doing well today. Reason For Visit: [facility] Physical Exam - Physical Exam Vital Signs: Temp Pulse Resp BP Pulse Ox 98.3 F 113 H 18 119/70 96 10/17/17 15:25 10/17/17 15:25 10/17/17 15:25 10/17/17 15:25 10/17/17 15:25 Intake & Output 10/16/17 10/17/17 10/18/17 06:59 06:59 06:59 Intake Total 0 8179 480 Output Total 5300 800 Balance 0 2879 -320 Weight 92.53 kg General appearance: PRESENT: no acute distress, well-developed, well-nourished GI/Abdominal exam: PRESENT: diminished bowel sounds - dressing dry today, normal bowel sounds, soft. ABSENT: distended, guarding, mass, organolmegaly, rebound, tenderness Result Laboratory Results: 10/17/17 06:23 10/17/17 06:23 10/17/17 10/17/17 06:23 06:23 WBC 12.9 H RBC 3.48 L Hgb 10.3 L Hct 31.2 L MCV 90 MCH 29.5 MCHC 33.0 RDW 12.8 Plt Count 218 Sodium 138.6 Potassium 4.1 Chloride 102 Carbon Dioxide 23 Anion Gap 14 BUN 6 L Creatinine 0.60 Est GFR ( Amer) > 60 Est GFR (Non-Af Amer) > 60 Glucose 137 H Calcium 8.6 Total Bilirubin 0.3 AST 25 ALT 23 Alkaline Phosphatase 58 Total Protein 6.4 Albumin 3.7 Assessment & Plan - Diagnosis (1) Pelvic pain Is this a current diagnosis for this admission?: Yes Plan: Home tomorrow. - Time Time Spent with patient: 15-24 minutes
[2017-10-17] MEDS ORDERED: OXYCODONE-ACETAMINOPHEN 5-325 MG TABLET ONE (17:31)
[2017-10-17] MEDS: HYDROMORPHONE HCL INJ/PF 2 MG/ML AMPULE IV PRN (20:28)
[2017-10-17] MEDS: DIVALPROEX SODIUM 500 MG TAB.SR.24H PO SCH (21:05)
[2017-10-17] MEDS: TEMAZEPAM 15 MG CAPSULE PO SCH (21:05)
[2017-10-17] MEDS: OXYCODONE-ACETAMINOPHEN 5-325 MG TABLET PO PRN (23:43)
[2017-10-18] MEDS: HYDROMORPHONE HCL INJ/PF 2 MG/ML AMPULE IV PRN (02:51)
[2017-10-18] MEDS ORDERED: PHENAZOPYRIDINE HCL 200 MG TABLET PO SCH (04:30)
[2017-10-18] MEDS: GABAPENTIN 300 MG CAPSULE PO SCH ×2 (05:58→13:15)
[2017-10-18] MEDS: OXYCODONE-ACETAMINOPHEN 5-325 MG TABLET PO PRN ×2 (07:00→10:51)
[2017-10-18 08:27] LABS: APPEARANCE,URINE SLIGHTLY-CLOUDY; BILIRUBIN,URINE NEGATIVE (NEGATIVE); COLOR,URINE YELLOW; GLUCOSE, URINE 50 mg/dL (NEGATIVE); KETONES,URINE NEGATIVE (NEGATIVE); LEUKOCYTE ESTERASE,URINE NEGATIVE (NEGATIVE); NITRITE,URINE NEGATIVE (NEGATIVE); PROTEIN,URINE NEGATIVE (NEGATIVE); URINE SPECIFIC GRAVITY 1.008; UROBILINOGEN,URINE NEGATIVE mg/dL (<2.0)
[2017-10-18 08:29] LABS: ADD MANUAL MICROSCOPIC YES
[2017-10-18 08:32] LABS: BACTERIA,URINE TRACE /HPF; CALCIUM OXALATE CRYSTALS,UR MODERATE /HPF
[2017-10-18] MEDS: ARIPIPRAZOLE 5 MG TABLET PO SCH (09:33)
[2017-10-18] MEDS: LORAZEPAM 1 MG TABLET PO SCH (09:33)
--- NOTE | 2017-10-18 09:33 | PDOC DISCHARGE SUMMARY ---
General - Admit/Disc Date/PCP Admission Date/Primary Care Provider: DANIELA FIELDS NP Discharge Date: 10/18/17 - Discharge Diagnosis (1) Pelvic pain Is this a current diagnosis for this admission?: Yes (2) Pelvic adhesive disease Is this a current diagnosis for this admission?: Yes (3) Anemia Is this a current diagnosis for this admission?: Yes Summary: anemia from blood loss. - Additional Information Home Medications: Aripiprazole [Abilify] 10 mg PO Q12 08/12/17 Divalproex Sodium [Divalproex Sodium ER] 500 mg PO QHS 08/12/17 Ergocalciferol (Vitamin D2) [Vitamin D2] 1 cap PO RITTER@1000 08/12/17 Ferrous Sulfate [Feosol] 325 mg PO DAILY 08/12/17 Fluticasone/Salmeterol [Advair 500-50 Diskus 28 Dose] 2 puff IN Q12 08/12/17 Gabapentin [Neurontin 300 mg Capsule] 300 mg PO Q8 08/12/17 Metformin HCl [Metformin HCl ER] 500 mg PO Q12 08/12/17 Metoprolol Tartrate [Lopressor 25 mg Tablet] 12.5 mg PO Q12 08/12/17 Pantoprazole Sodium [Protonix] 40 mg PO DAILY 08/12/17 Polyethylene Glycol 3350 [Miralax] 17 gm PO DAILY 08/12/17 Quetiapine Fumarate [Seroquel Xr] 400 mg PO QHS 08/12/17 Simvastatin [Zocor 20 mg Tablet] 20 mg PO QHS 08/12/17 Acetaminophen [Tylenol Extra Strength] 500 mg PO DAILY 10/13/17 Albuterol Sulfate [Albuterol Sulfate 2.5mg/3 mL] 2.5 mg IH TID 10/13/17 Albuterol Sulfate [Ventolin Hfa] 1 - 2 puff IH Q4 PRN 10/13/17 Diphenhydramine HCl [Benadryl 25 mg Capsule] 25 mg PO TID 10/13/17 Fluticasone Furoate [Flonase Sensimist] 15.8 ml NS DAILY 10/13/17 Loratadine 10 mg PO DAILY 10/13/17 Lorazepam [Ativan 1 mg Tablet] 1 mg PO TID 10/13/17 Multivitamin [Daily Multiple Vitamin] 1 each PO DAILY 10/13/17 Temazepam [Restoril 15 mg Capsule] 30 mg PO QHS 10/13/17 History of Present Illness Patient complains of: Pelvic pain and heavy menses. History of Present Illness: RADHA ESTRADA is a 32 year old female She has completed childbearing and has a long history of heavy painful menses and chronic uterine pain. This has not responded to medical management. She would like a hysterectomy. Hospital Course Hospital Course: The pt underwent a hysterectomy. We converted to an open case because of very dense adhesions anteriorly between the uterus and the anterior pelvis. Please see the operative report. Post operative she has done well. She is voiding on her own and passing gas. She is tolerating oral pain medication and regular diet. She will be sent home today with followup on Monday. Physical Exam - Physical Exam Vital Signs: Temp Pulse Resp BP Pulse Ox 98.3 F 109 H 16 140/72 H 91 L 10/18/17 07:45 10/18/17 07:45 10/18/17 07:45 10/18/17 07:45 10/18/17 07:45 Intake & Output 10/17/17 10/18/17 10/19/17 06:59 06:59 06:59 Intake Total 8179 480 Output Total 5300 800 Balance 2879 -320 General appearance: PRESENT: no acute distress, well-developed, well-nourished Head exam: PRESENT: atraumatic, normocephalic GI/Abdominal exam: PRESENT: other Result Laboratory Results: 10/17/17 06:23 10/17/17 06:23 10/18/17 08:03 Urine Color YELLOW Urine Appearance SLIGHTLY-CLOUDY Urine pH 6.0 Ur Specific [place] 1.008 Urine Protein NEGATIVE Urine Glucose (UA) 50 H Urine Ketones NEGATIVE Urine Blood NEGATIVE Urine Nitrite NEGATIVE Ur Leukocyte Esterase NEGATIVE Ur Squamous Epith Cells MODERATE Impressions: POD number 2 Plan Discharge Plan: Home on percocet and macrobid. Pelvic rest and no heavy lifting. May shower. Followup on Monday in the office.
[2017-10-18] MEDS: IBUPROFEN 800 MG TABLET PO SCH (09:34)
[2017-10-18] MEDS: PHENAZOPYRIDINE HCL 200 MG TABLET PO SCH ×2 (09:34→13:15)
[2017-10-18] MEDS: SIMETHICONE 80 MG TAB.CHEW PO PRN (10:51)
[2017-10-18] MEDS ORDERED: INFLUENZA ADLT QUAD (36MOS+) 2017-18 VAC 0.5 ML SYR IM PRN (11:52)
[2017-10-18 13:12] VITALS: BP 125/69
== END 2017-10-18 13:49 | disposition home or self-care (01) | DRG 743 ==
LOC: OROUT 05:31 → EDSTATUS 07:30 → 2S 12:20 → OROUT 12:20 → 2S 16:57 → OROUT 10-18 13:49
PROVIDERS: ADMIT Obstetrics & Gynecology; ATTEND Obstetrics & Gynecology
PROC: 0UJD4ZZ Inspection of Uterus and Cervix, Percutaneous Endoscopic Approach (ICD-10-PCS; 2017-10-16)
PROC: 0DNU0ZZ Release Omentum, Open Approach (ICD-10-PCS; 2017-10-16)
PROC: 0UB70ZZ Excision of Bilateral Fallopian Tubes, Open Approach (ICD-10-PCS; 2017-10-16)
PROC: 8E0W0CZ Robotic Assisted Procedure of Trunk Region, Open Approach (ICD-10-PCS; 2017-10-16)
PROC: 0UT90ZZ Resection of Uterus, Open Approach (ICD-10-PCS; principal; 2017-10-16 07:30)
DX: N93.8 Other specified abnormal uterine and vaginal bleeding (principal); N73.6 Female pelvic peritoneal adhesions (postinfective); D50.0 Iron deficiency anemia secondary to blood loss (chronic); Z53.31 Laparoscopic surgical procedure converted to open procedure
CPT/HCPCS: 36415; 80048; 80053; 81001; 81025; 82962; 840; 85027; 86850; 86900; 86901; 87086; 87088; 87186; 88307; 90686; 93005; 93010; J0131; J0330; J0690; J1100; J1170; J1885; J2250; J2704; J3010; J3490

== ENCOUNTER 2017-10-23 11:46 | Emergency (ER) | payer MEDICARE, MEDICAID ==
--- NOTE | 2017-10-23 12:39 | ER Document Report ---
ED Medical Screen (RME) - General Chief Complaint: Abdominal Pain Stated Complaint: ABDOMINAL PAIN Time Seen by Provider: 10/23/17 12:24 TRAVEL OUTSIDE OF THE [place] IN LAST 30 DAYS: No - HPI Notes: 10/23/17 12:29 32-year-old female presents with pelvic pain and pressure since having a hysterectomy done October [address] Leonardo for excessive vaginal bleeding. Started robotically but change to open secondary to significant scarring. She has associated dysuria with symptoms of urinary retention feeling she has not emptying her bladder. Pelvic pain is diffuse. Exam limited as patient in binder and sitting up. Due to transportation issues she was unable to keep her follow-up appointment this morning at 930. She unfortunately also is out of her pain medication. She has contacted Dr. Leonardo's office who requested she come to the emergency department as well as find out who is on-call. Patient was seen for a rapid medical screening exam. Further assessment and diagnostic/treatment considerations will be performed further as appropriate treatment areas are available for a complete evaluation. - Related Data Allergies/Adverse Reactions: zolpidem tartrate [From Ambien] Allergy (Mild, Verified 10/23/17 11:48) Abnormal behavior adhesive tape Allergy (Verified 10/23/17 11:48) ciprofloxacin [From Cipro] Allergy (Verified 10/23/17 11:48) citalopram [Citalopram] Allergy (Verified 10/23/17 11:48) escitalopram oxalate [From Lexapro] Allergy (Verified 10/23/17 11:48) lamotrigine [From Lamictal] Allergy (Verified 10/23/17 11:48) nitrofurantoin [From Macrobid] Allergy (Verified 10/23/17 11:48) Quinolones Allergy (Verified 10/23/17 11:48) ondansetron HCl [From Zofran] Adverse Reaction (Verified 10/23/17 11:48) CATS Allergy (Intermediate, Uncoded 09/14/17 18:45) SQUASH Allergy (Unknown, Uncoded 09/14/17 18:45) silk tape Allergy (Uncoded 10/16/17 14:13) Past Medical History - Past Medical History Cardiac Medical History: Reports: Hx Hypertension - ON MEDS Denies: Hx Coronary Artery Disease, Hx Heart Attack Pulmonary Medical History: Reports: Hx Asthma - INHALERS, Hx Pneumonia - AUG 2017 Denies: Hx Bronchitis, Hx COPD Neurological Medical History: Reports: Hx Migraine. Denies: Hx Cerebrovascular Accident, Hx Seizures - R/O BY NEUROLOGIST, HAD "MIGRAINE ATTACK" Endocrine Medical History: Reports: Hx Diabetes Mellitus Type 2 Renal/ Medical History: Reports: Hx Ovarian Cysts. Denies: Hx Peritoneal Dialysis GI Medical History: Reports: Hx Gastroesophageal Reflux Disease Musculoskeltal Medical History: Reports Hx Arthritis - KNEES, DJD, Reports Hx Musculoskeletal Trauma Psychiatric Medical History: Reports: Hx Anxiety, Hx Attention Deficit Hyperactivity Disorder, Hx Bipolar Disorder, Hx Depression, Hx Post Traumatic Stress Disorder Past Surgical History: Reports: Hx Abdominal Surgery - LAPARASCOPY X2, Hx Section - x2, Hx Gynecologic Surgery - 5 D&C (MISCARRIAGES), Hx Oral Surgery - Jaw for TMJ and wisdom teeth, Hx Tubal Ligation - Immunizations Immunizations up to date: Yes Hx Diphtheria, Pertussis, Tetanus Vaccination: Yes - UTD History of Influenza Vaccine for 08/2017 - 01/2018 Season: No Physical Exam - Vital signs Vitals: Temp Pulse Resp BP Pulse Ox 99.3 F 106 H 16 109/70 94 10/23/17 11:57 10/23/17 11:57 10/23/17 11:57 10/23/17 11:57 10/23/17 11:57 Course - Vital Signs Vital signs: Temp Pulse Resp BP Pulse Ox 99.3 F 106 H 16 109/70 94 10/23/17 11:57 10/23/17 11:57 10/23/17 11:57 10/23/17 11:57 10/23/17 11:57
[2017-10-23 14:24] LABS: APPEARANCE,URINE CLEAR; BILIRUBIN,URINE NEGATIVE (NEGATIVE); GLUCOSE, URINE NEGATIVE (NEGATIVE); KETONES,URINE NEGATIVE (NEGATIVE); LEUKOCYTE ESTERASE,URINE NEGATIVE (NEGATIVE); NITRITE,URINE NEGATIVE (NEGATIVE); PROTEIN,URINE NEGATIVE (NEGATIVE); URINE SPECIFIC GRAVITY 1.003; UROBILINOGEN,URINE NEGATIVE mg/dL (<2.0)
[2017-10-23] MEDS ORDERED: MORPHINE SULFATE 10 MG/ML INJ IV ONE (14:28)
--- NOTE | 2017-10-23 14:29 | ER Document Report ---
ED GI/ - General Chief Complaint: Abdominal Pain Stated Complaint: ABDOMINAL PAIN Time Seen by Provider: 10/23/17 12:24 Notes: Patient is a 32-year-old female with past medical history including a hysterectomy on October 16, 2017 secondary to dysfunctional uterine bleeding and anemia by Dr. Rd Leonardo who presents with consistent pain to the lower pelvis region since the surgery. She states she has had some increased spasm- like pain for the last 5 days. She states it is worse with urination. She also states some increased frequency. She states nausea without vomiting or fevers. She denies any flank pain or diarrhea. TRAVEL OUTSIDE OF THE [place] IN LAST 30 DAYS: No - HPI Patient complains to provider of: Abdominal pain, Other - See above Onset: Other - See above Timing/Duration: Gradual Quality of pain: Other - See above Severity at maximum: Moderate Severity in ED: Moderate Location: Other - See above Sexual history: Inactive Associated symptoms: Other - See above Exacerbated by: Movement, Other - See above Similar symptoms previously: Yes Recently seen / treated by doctor: Yes - Related Data Allergies/Adverse Reactions: zolpidem tartrate [From Ambien] Allergy (Mild, Verified 10/23/17 11:48) Abnormal behavior adhesive tape Allergy (Verified 10/23/17 11:48) ciprofloxacin [From Cipro] Allergy (Verified 10/23/17 11:48) citalopram [Citalopram] Allergy (Verified 10/23/17 11:48) escitalopram oxalate [From Lexapro] Allergy (Verified 10/23/17 11:48) lamotrigine [From Lamictal] Allergy (Verified 10/23/17 11:48) nitrofurantoin [From Macrobid] Allergy (Verified 10/23/17 11:48) Quinolones Allergy (Verified 10/23/17 11:48) ondansetron HCl [From Zofran] Adverse Reaction (Verified 10/23/17 11:48) CATS Allergy (Intermediate, Uncoded 09/14/17 18:45) SQUASH Allergy (Unknown, Uncoded 09/14/17 18:45) silk tape Allergy (Uncoded 10/16/17 14:13) Past Medical History - General Information source: Patient - Social History Smoking Status: Never Smoker Cigarette use (# per day): No Chew tobacco use (# tins/day): No Smoking Education Provided: No Frequency of alcohol use: Rare Drug Abuse: None Family History: Arthritis, CAD, CVA, DM, Hyperlipidemia, Hypertension, Malignancy, Other - mental health issues Patient has suicidal ideation: No Patient has homicidal ideation: No - Past Medical History Cardiac Medical History: Reports: Hx Hypertension - ON MEDS Denies: Hx Coronary Artery Disease, Hx Heart Attack Pulmonary Medical History: Reports: Hx Asthma - INHALERS, Hx Pneumonia - AUG 2017 Denies: Hx Bronchitis, Hx COPD Neurological Medical History: Reports: Hx Migraine. Denies: Hx Cerebrovascular Accident, Hx Seizures - R/O BY NEUROLOGIST, HAD "MIGRAINE ATTACK" Endocrine Medical History: Reports: Hx Diabetes Mellitus Type 2 Renal/ Medical History: Reports: Hx Ovarian Cysts. Denies: Hx Peritoneal Dialysis GI Medical History: Reports: Hx Gastroesophageal Reflux Disease Musculoskeltal Medical History: Reports Hx Arthritis - KNEES, DJD, Reports Hx Musculoskeletal Trauma Psychiatric Medical History: Reports: Hx Anxiety, Hx Attention Deficit Hyperactivity Disorder, Hx Bipolar Disorder, Hx Depression, Hx Post Traumatic Stress Disorder Past Surgical History: Reports: Hx Abdominal Surgery - LAPARASCOPY X2, Hx Section - x2, Hx Gynecologic Surgery - 5 D&C (MISCARRIAGES), Hx Oral Surgery - Jaw for TMJ and wisdom teeth, Hx Tubal Ligation - Immunizations Immunizations up to date: Yes Hx Diphtheria, Pertussis, Tetanus Vaccination: Yes - UTD Hx Pneumococcal Vaccination: 11/13/13 Review of Systems - Review of Systems Constitutional: denies: Fever EENT: denies: Eye discharge, Nose discharge Respiratory: denies: Short of breath Gastrointestinal: denies: Vomiting Genitourinary: Burning, Dysuria Musculoskeletal: denies: Leg swelling Skin: Other - no hives. denies: Rash Neurological/Psychological: Other - no slurred speech -: Yes All other systems reviewed and negative Physical Exam - Vital signs Vitals: Temp Pulse Resp BP Pulse Ox 99.3 F 106 H 16 109/70 94 10/23/17 11:57 10/23/17 11:57 10/23/17 11:57 10/23/17 11:57 10/23/17 11:57 Notes: Reviewed vital signs and nursing note as charted by RN. CONSTITUTIONAL: Alert and oriented and responds appropriately to questions. Well -appearing; well-nourished HEAD: Normocephalic; atraumatic EYES: Sclerae non-icteric ENT: Normal nose; no rhinorrhea; moist mucous membranes; pharynx without lesions noted CARD: Regular rate and rhythm; no murmurs RESP: Normal chest excursion without splinting or tachypnea; breath sounds clear and equal bilaterally ABD/GI: Normal bowel sounds; non-distended; soft, mildly tender to palpation to the suprapubic region without rebound or guarding. No palpable masses. Surgical horizontal scar is clean dry and intact. Patient does have also laparoscopy scars. Small dehiscence to the right lateral scar region No surrounding erythema induration or fluctuance. BACK: The back appears normal and is non-tender to palpation, there is no CVA tenderness EXT: Normal ROM in all joints; non-tender to palpation; no cyanosis, no effusions, no edema SKIN: No acute lesions noted NEURO: Moves all extremities equally; Motor and sensory function intact PSYCH: The patient's mood and manner are appropriate. Grooming and personal hygiene are appropriate. Course - Re-evaluation Re-evalutation: Given the history and physical examination we will order basic labs, urinalysis , and a CT scan of the abdomen and pelvis to assess any possibility of intra- abdominal pathology. 10/23/17 15:41 Patient's pain is improved. We are waiting CT scan results. 10/23/17 16:47 CT scan shows no acute abnormalities. Urine analysis shows no infection. Hemoglobin and white blood cell count is recorded. Patient's exam is much improved. Patient has an appointment in 2 days with the [employer] SALES [employer]SULT[employer]. She is asked for refill of her medications. We have placed Steri-Strips to the very small dehiscence site to the right lower quadrant. There are no signs of infection. Patient will be discharged home with strict return precautions and a small prescription until she is able to see her [employer]. - Vital Signs Vital signs: Temp Pulse Resp BP Pulse Ox 98.8 F 99 18 105/62 95 10/23/17 16:41 10/23/17 16:41 10/23/17 16:41 10/23/17 16:41 10/23/17 16:41 - Laboratory Result Diagrams: 10/23/17 14:41 10/23/17 15:25 Laboratory results interpreted by me: 10/23/17 10/23/17 14:41 15:25 RBC 3.35 L Hgb 9.9 L Hct 30.0 L BUN 3 L Discharge - Discharge Clinical Impression: Suprapubic abdominal pain Condition: Good Disposition: HOME, SELF-CARE Additional Instructions: Come back immediately with any increased pain, fevers or vomiting, change in location or quality of pain, inability to urinate, or any other acute problems. Please make sure that you follow-up with your [employer] as scheduled and make sure that they assess the urine culture that we have sent. Prescriptions: Oxycodone HCl/Acetaminophen [Percocet 5-325 mg Tablet] 1 - 2 tab PO ASDIR PRN # 15 tablet PRN Reason:
[2017-10-23 14:52] LABS: ABSOLUTE BASOPHILS # (AUTO) 0.1 10^3/uL (0.0-0.2); ABSOLUTE EOSINOPHILS # (AUTO) 0.4 10^3/uL (0.0-0.6); ABSOLUTE LYMPHOCYTES (AUTO) 2.4 10^3/uL (0.5-4.7); ABSOLUTE MONOCYTES (AUTO) 0.5 10^3/uL (0.1-1.4); ABSOLUTE NEUT (AUTO) 4.5 10^3/uL (1.7-8.2); BASOPHILS % (AUTO) 0.9 % (0-2); EOSINOPHILS % (AUTO) 4.5 % (0-6); HEMOGLOBIN 9.9 g/dL (12.0-15.5); HGB HCT DIFFERENCE -0.3; LYMPHOCYTES % (AUTO) 30.9 % (13-45); MEAN CORPUSCULAR HEMOGLOBIN 29.6 pg (27.0-33.4); MEAN CORPUSCULAR VOLUME 90 fl (80-97); MONOCYTES % (AUTO) 6.9 % (3-13); RED BLOOD COUNT 3.35 10^6/uL (3.72-5.28); RED CELL DISTRIBUTION WIDTH 13.1 % (11.5-14.0); SEGMENTED NEUTROPHILS % (AUTO) 56.8 % (42-78); WHITE BLOOD COUNT 7.9 10^3/uL (4.0-10.5)
[2017-10-23 15:50] LABS: ANION GAP 11 (5-19); BLOOD UREA NITROGEN 3 mg/dL (7-20); CALCIUM 9.6 mg/dL (8.4-10.2); CARBON DIOXIDE 26 mmol/L (22-30); CHLORIDE 104 mmol/L (98-107); CREATININE RESULT 0.55 mg/dL (0.52-1.25); GLUCOSE 100 mg/dL (75-110); POTASSIUM 4.4 mmol/L (3.6-5.0); SODIUM 140.8 mmol/L (137-145)
--- NOTE | 2017-10-23 16:21 | RADIOLOGY REPORT (SQ) ---
EXAM DESCRIPTION: CT ABD/PELVIS WITH IV ONLY COMPLETED DATE/TIME: 10/23/2017 4:05 pm REASON FOR STUDY: 41, hysterectomy 10/16/17. Abdominal pain COMPARISON: 08/22/2015 TECHNIQUE: CT scan of the abdomen and pelvis performed using helical scanning technique with dynamic intravenous contrast injection. No oral contrast. Images reviewed with lung, soft tissue, and bone windows. Reconstructed coronal and sagittal MPR images reviewed. Delayed images for evaluation of the urinary system also acquired. All images stored on PACS. All CT scanners at this facility use dose modulation, iterative reconstruction, and/or weight based d osing when appropriate to reduce radiation dose to as low as reasonably achievable (ALARA). [facility]: Dose Right [facility]: CareDose [facility]: Dose Right [facility]: Teradose 4D [facility]: Healthagen CONTRAST TYPE AND DOSE: contrast/concentration: Isovue 370.00 mg/ml; Total Contrast Delivered: 99.0 ml; Total Saline Delivered: 40.0 ml RENAL FUNCTION: GFR > 60. RADIATION DOSE: CT Rad equipment meets quality standard of care and radiation dose reduction techniq ues were employed. CTDIvol: 12.7 - 17.2 mGy. DLP: 1572 mGy-cm.. LIMITATIONS: None. FINDINGS: LOWER CHEST: No significant findings. No nodules or infiltrates. LIVER: Normal size. No masses. No dilated ducts. SPLEEN: Normal size. No focal lesions. PANCREAS: No masses. No significant calcifications. No adjacent inflammation or peripancreatic fluid collections. Pancreatic duct not dilated. GALLBLADDER: No identified stones by CT criteria. No inflammatory changes to suggest cholecystitis. ADRENAL GLANDS: No significant masses or asymmetry. RIGHT KIDNEY AND URETER: No solid masses. No significant calcifications. No hydronephrosis or hyd roureter. LEFT KIDNEY AND URETER: No solid masses. 3 mm renal calculus. No hydronephrosis or hydroureter. AORTA AND VESSELS: No aneurysm. No dissection. Renal arteries, SMA, celiac without stenosis. RETROPERITONEUM: No retroperitoneal adenopathy, hemorrhage or masses. BOWEL AND PERITONEAL CAVITY: Postsurgical changes in the pelvis and lower abdomen. No evidence of gilda wel obstruction. No ascites. APPENDIX: Normal. PELVIS: Small amount of nondependent gas in the urinary bladder presumably related to catheterization . ABDOMINAL WALL: Postsurgical changes. BONES: No acute findings. OTHER: No other significant finding. IMPRESSION: No evidence of abscess or bowel obstruction. TECHNICAL DOCUMENTATION: JOB ID: [id number] Quality ID # [id number]: Final reports with documentation of one or more dose reduction techniques (e.g., Au tomated exposure control, adjustment of the mA and/or kV according to patient size, use of iterative reconstruction technique) 2010 [employer]- All Rights Reserved
[2017-10-23 16:44] VITALS: BP 105/62
== END 2017-10-23 17:15 | disposition home or self-care (01) ==
LOC: ER 11:46
DX: R10.30 Lower abdominal pain, unspecified (principal); R30.0 Dysuria; R11.0 Nausea; Z98.890 Other specified postprocedural states; I10 Essential (primary) hypertension; E11.9 Type 2 diabetes mellitus without complications; K21.9 Gastro-esophageal reflux disease without esophagitis; Z90.710 Acquired absence of both cervix and uterus; Z88.3 Allergy status to other anti-infective agents
CPT/HCPCS: 99284; 96374; 36415; 87086; 85025; 87088; 80048; 81001; 87186; 74177; J2270

== ENCOUNTER 2017-11-03 17:34 | Emergency (ER) | payer MEDICARE, MEDICAID ==
[2017-11-03 17:39] VITALS: BP 120/75
--- NOTE | 2017-11-03 18:01 | ER Document Report ---
ED Medical Screen (RME) - General Mode of Arrival: Ambulatory Information source: Patient TRAVEL OUTSIDE OF THE [place] IN LAST 30 DAYS: No <ROHIT TANG - Last Filed: 11/03/17 18:04> <DESMOND ROMAN - Last Filed: 11/03/17 19:22> - General Chief Complaint: Blood in Catheter Stated Complaint: CATHETER PROBLEMS Time Seen by Provider: 11/03/17 17:49 Notes: Patient is a 32 year old female presenting to the emergency department complaining of blood clots in her moya catheter as well as some bloody dishcharge. Patient states she was had a complicated hysterectomy on 10/16/2017 and due to painful urination and dysuria, she had a moya catheter placed. Patient states she had the moya catheter placed yesterday. Patients Barrel Washer Machine is Dr. Leonardo. I have greeted and performed a rapid initial assessment of this patient. A comprehensive ED assessment and evaluation of the patient, analysis of test results and completion of the medical decision making process will be conducted by additional ED providers. (ROHIT TANG) - Related Data Allergies/Adverse Reactions: zolpidem tartrate [From Ambien] Allergy (Mild, Verified 11/03/17 17:49) Abnormal behavior adhesive tape Allergy (Verified 11/03/17 17:49) ciprofloxacin [From Cipro] Allergy (Verified 11/03/17 17:49) citalopram [Citalopram] Allergy (Verified 11/03/17 17:49) escitalopram oxalate [From Lexapro] Allergy (Verified 11/03/17 17:49) lamotrigine [From Lamictal] Allergy (Verified 11/03/17 17:49) nitrofurantoin [From Macrobid] Allergy (Verified 11/03/17 17:49) Quinolones Allergy (Verified 11/03/17 17:49) ondansetron HCl [From Zofran] Adverse Reaction (Verified 11/03/17 17:49) CATS Allergy (Intermediate, Uncoded 11/03/17 17:35) SQUASH Allergy (Unknown, Uncoded 11/03/17 17:35) silk tape Allergy (Uncoded 11/03/17 17:35) Past Medical History - General Information source: Patient - Social History Chew tobacco use (# tins/day): No Frequency of alcohol use: None - Past Medical History Cardiac Medical History: Reports: Hx Hypertension - ON MEDS Pulmonary Medical History: Reports: Hx Asthma - INHALERS, Hx Pneumonia - AUG 2017 Neurological Medical History: Reports: Hx Migraine Endocrine Medical History: Reports: Hx Diabetes Mellitus Type 2 Renal/ Medical History: Reports: Hx Ovarian Cysts GI Medical History: Reports: Hx Gastroesophageal Reflux Disease Musculoskeltal Medical History: Reports Hx Arthritis - KNEES, DJD, Reports Hx Musculoskeletal Trauma Psychiatric Medical History: Reports: Hx Anxiety, Hx Attention Deficit Hyperactivity Disorder, Hx Bipolar Disorder, Hx Depression, Hx Post Traumatic Stress Disorder Past Surgical History: Reports: Hx Abdominal Surgery - LAPARASCOPY X2, Hx Section - x2, Hx Gynecologic Surgery - 5 D&C (MISCARRIAGES), Hx Hysterectomy, Hx Oral Surgery - Jaw for TMJ and wisdom teeth, Hx Tubal Ligation - Immunizations Immunizations up to date: Yes Hx Diphtheria, Pertussis, Tetanus Vaccination: Yes - UTD History of Influenza Vaccine for 08/2017 - 01/2018 Season: No <ROHIT TNAG - Last Filed: 11/03/17 18:04> Physical Exam <ROHIT TANG - Last Filed: 11/03/17 18:04> <DESMOND ROMAN - Last Filed: 11/03/17 19:22> - Vital signs Vitals: Temp Pulse Resp BP Pulse Ox 98.5 F 109 H 20 120/75 95 11/03/17 17:39 11/03/17 17:39 11/03/17 17:39 11/03/17 17:39 11/03/17 17:39 - Notes Notes: GENERAL: Alert, interacts well. No acute distress. (ROHIT TANG) Course <ROHIT TANG - Last Filed: 11/03/17 18:04> - Laboratory Result Diagrams: 11/03/17 18:20 11/03/17 18:20 <DESMOND ROMAN - Last Filed: 11/03/17 19:22> - Re-evaluation Re-evalutation: 11/03/17 18:[address] Leonardo prior to receiving any results, made him aware that the patient was here, Dr. Leonardo states that he suspects the small amount of blood in the Moya catheter is likely coming from the Moya catheter rubbing against the bladder, states that during surgery he did not notice any damage to the bladder however he could have denerved the bladder which is why she was having urinary retention, states this plan was to perform a cystogram on but until then leave the Moya catheter in and provide bladder rest. States that after results are back he would be happy to come to the emergency department and see the patient if we feel it necessary. At present I do not feel it is necessary for Dr. Leonardo to come to the emergency department at this moment. The provider who sees the patient in the main part of the emergency department may reevaluate and decide differently. (DESMOND ROMAN) - Vital Signs Vital signs: Temp Pulse Resp BP Pulse Ox 98.5 F 109 H 20 120/75 95 11/03/17 17:39 11/03/17 17:39 11/03/17 17:39 11/03/17 17:39 11/03/17 17:39 - Laboratory Laboratory results interpreted by me: 11/03/17 11/03/17 18:20 18:20 RBC 3.51 L Hgb 9.9 L Hct 30.5 L Carbon Dioxide 31 H Glucose 115 H Total Bilirubin < 0.1 L Scribe Documentation - Scribe Written by Alma:: Alma Brar, 11/03/2017 18:04 acting as scribe for :: Celso <ROHIT TANG - Last Filed: 11/03/17 18:04>
[2017-11-03 18:38] LABS: ABSOLUTE BASOPHILS # (AUTO) 0.1 10^3/uL (0.0-0.2); ABSOLUTE EOSINOPHILS # (AUTO) 0.3 10^3/uL (0.0-0.6); ABSOLUTE LYMPHOCYTES (AUTO) 2.2 10^3/uL (0.5-4.7); ABSOLUTE MONOCYTES (AUTO) 0.4 10^3/uL (0.1-1.4); ABSOLUTE NEUT (AUTO) 3.1 10^3/uL (1.7-8.2); BASOPHILS % (AUTO) 1.6 % (0-2); EOSINOPHILS % (AUTO) 5.6 % (0-6); HEMATOCRIT 30.5 % (36.0-47.0); HEMOGLOBIN 9.9 g/dL (12.0-15.5); HGB HCT DIFFERENCE -0.8; LYMPHOCYTES % (AUTO) 35.5 % (13-45); MEAN CORPUSCULAR HEMOGLOBIN 28.3 pg (27.0-33.4); MEAN CORPUSCULAR HGB CONC 32.6 g/dL (32.0-36.0); MEAN CORPUSCULAR VOLUME 87 fl (80-97); MONOCYTES % (AUTO) 7.2 % (3-13); RED BLOOD COUNT 3.51 10^6/uL (3.72-5.28); RED CELL DISTRIBUTION WIDTH 13.2 % (11.5-14.0); SEGMENTED NEUTROPHILS % (AUTO) 50.1 % (42-78); WHITE BLOOD COUNT 6.2 10^3/uL (4.0-10.5)
[2017-11-03 18:58] LABS: ALANINE AMINOTRANSFERASE 24 U/L (9-52); ALBUMIN 4.1 g/dL (3.5-5.0); ALKALINE PHOSPHATASE 60 U/L (38-126); ANION GAP 11 (5-19); ASPARTATE AMINO TRANSFERASE 22 U/L (14-36); BLOOD UREA NITROGEN 10 mg/dL (7-20); CALCIUM 10.1 mg/dL (8.4-10.2); CARBON DIOXIDE 31 mmol/L (22-30); CHLORIDE 98 mmol/L (98-107); CREATININE RESULT 0.74 mg/dL (0.52-1.25); GLUCOSE 115 mg/dL (75-110); POTASSIUM 4.5 mmol/L (3.6-5.0); TOTAL PROTEIN 7.2 g/dL (6.3-8.2)
[2017-11-03 18:59] LABS: BILIRUBIN,TOTAL < 0.1 mg/dL (0.2-1.3)
[2017-11-03 19:25] LABS: APPEARANCE,URINE CLEAR; BILIRUBIN,URINE NEGATIVE (NEGATIVE); GLUCOSE, URINE NEGATIVE (NEGATIVE); KETONES,URINE NEGATIVE (NEGATIVE); LEUKOCYTE ESTERASE,URINE NEGATIVE (NEGATIVE); NITRITE,URINE POSITIVE (NEGATIVE); PROTEIN,URINE 30 mg/dL (NEGATIVE); URINE SPECIFIC GRAVITY 1.006
[2017-11-03 19:28] LABS: PROTHROMBIN TIME 12.3 SEC (11.4-15.4)
--- NOTE | 2017-11-03 19:43 | ER Document Report ---
ED GI/ - General Chief Complaint: Blood in Catheter Stated Complaint: CATHETER PROBLEMS Time Seen by Provider: 11/03/17 17:49 Mode of Arrival: Ambulatory Notes: The patient is a 32-year-old female, past medical history DUB status post hysterectomy on 10/16/[address] Chris Leonardo, urinary retention with Cox placed yesterday, presents with increasing pain during urination and bloody discharge from the Cox catheter site. She said she noticed to blood clots in her Cox bag. Patient says she is taking Pyridium, Keflex, Percocet and Motrin without much relief of her symptoms. She denies fevers, flank pain, nausea, vomiting, discharge from her surgical wounds, heavy vaginal bleeding or rash. TRAVEL OUTSIDE OF THE [place] IN LAST 30 DAYS: No - Related Data Allergies/Adverse Reactions: zolpidem tartrate [From Ambien] Allergy (Mild, Verified 11/03/17 17:49) Abnormal behavior adhesive tape Allergy (Verified 11/03/17 17:49) ciprofloxacin [From Cipro] Allergy (Verified 11/03/17 17:49) citalopram [Citalopram] Allergy (Verified 11/03/17 17:49) escitalopram oxalate [From Lexapro] Allergy (Verified 11/03/17 17:49) lamotrigine [From Lamictal] Allergy (Verified 11/03/17 17:49) nitrofurantoin [From Macrobid] Allergy (Verified 11/03/17 17:49) Quinolones Allergy (Verified 11/03/17 17:49) ondansetron HCl [From Zofran] Adverse Reaction (Verified 11/03/17 17:49) CATS Allergy (Intermediate, Uncoded 11/03/17 17:35) SQUASH Allergy (Unknown, Uncoded 11/03/17 17:35) silk tape Allergy (Uncoded 11/03/17 17:35) Past Medical History - General Information source: Patient - Social History Smoking Status: Unknown if Ever Smoked Chew tobacco use (# tins/day): No Frequency of alcohol use: None Family History: Arthritis, CAD, CVA, DM, Hyperlipidemia, Hypertension, Malignancy, Other - mental health issues Patient has suicidal ideation: No Patient has homicidal ideation: No - Past Medical History Cardiac Medical History: Reports: Hx Hypertension - ON MEDS Pulmonary Medical History: Reports: Hx Asthma - INHALERS, Hx Pneumonia - AUG 2017 Neurological Medical History: Reports: Hx Migraine Endocrine Medical History: Reports: Hx Diabetes Mellitus Type 2 Renal/ Medical History: Reports: Hx Ovarian Cysts. Denies: Hx Peritoneal Dialysis GI Medical History: Reports: Hx Gastroesophageal Reflux Disease Musculoskeltal Medical History: Reports Hx Arthritis - KNEES, DJD, Reports Hx Musculoskeletal Trauma Psychiatric Medical History: Reports: Hx Anxiety, Hx Attention Deficit Hyperactivity Disorder, Hx Bipolar Disorder, Hx Depression, Hx Post Traumatic Stress Disorder Past Surgical History: Reports: Hx Abdominal Surgery - LAPARASCOPY X2, Hx Section - x2, Hx Gynecologic Surgery - 5 D&C (MISCARRIAGES), Hx Hysterectomy, Hx Oral Surgery - Jaw for TMJ and wisdom teeth, Hx Tubal Ligation - Immunizations Immunizations up to date: Yes Hx Diphtheria, Pertussis, Tetanus Vaccination: Yes - UTD Hx Pneumococcal Vaccination: 11/13/13 Review of Systems - Review of Systems Notes: REVIEW OF SYSTEMS: CONSTITUTIONAL: -fevers, -chills EENT: -eye pain, -difficulty swallowing, -nasal congestion CARDIOVASCULAR:-chest pain, -syncope. RESPIRATORY: -cough, -SOB GASTROINTESTINAL: -abdominal pain, - nausea, -vomiting, -diarrhea GENITOURINARY: -dysuria, -hematuria, +painful urination MUSCULOSKELETAL: -back pain, -neck pain SKIN: -rash or skin lesions. HEMATOLOGIC: -easy bruising or bleeding. LYMPHATIC: -swollen, enlarged glands. NEUROLOGICAL: -altered mental status or loss of consciousness, -headache, - neurologic symptoms PSYCHIATRIC: -anxiety, -depression. ALL OTHER SYSTEMS REVIEWED AND NEGATIVE. Physical Exam - Vital signs Vitals: Temp Pulse Resp BP Pulse Ox 98.5 F 109 H 20 120/75 95 11/03/17 17:39 11/03/17 17:39 11/03/17 17:39 11/03/17 17:39 11/03/17 17:39 - Notes Notes: PHYSICAL EXAMINATION: GENERAL: Well-appearing, well-nourished and in no acute distress. HEAD: Atraumatic, normocephalic. EYES: Pupils equal round and reactive to light, extraocular movements intact, sclera anicteric, conjunctiva are normal. ENT: nares patent, oropharynx clear without exudates. Moist mucous membranes. NECK: Normal range of motion, supple without lymphadenopathy LUNGS: Breath sounds clear to auscultation bilaterally and equal. No wheezes rales or rhonchi. HEART: Regular rate and rhythm without murmurs ABDOMEN: Soft, nontender, normoactive bowel sounds. No guarding, no rebound. No masses appreciated. Well-healing surgical wounds. : (Chaperoned by ALLEY Cai) Cox in place without surrounding erythema, bleeding or discharge. No vaginal bleeding. Cox bag with dark urine urine. EXTREMITIES: Normal range of motion, no pitting or edema. No cyanosis. NEUROLOGICAL: Cranial nerves grossly intact. Normal speech, normal gait. Normal sensory and motor exams. PSYCH: Normal mood, normal affect. SKIN: Warm, Dry, normal turgor, no rashes or lesions noted. Course - Re-evaluation Re-evalutation: 11/03/17 20:12 Spoke to her [employer]ing [employer], Dr. Chris Leonardo, and will switch patient's antibiotics to doxycycline due to the presence of a UTI despite Keflex and have patient follow-up in the office. Cox is in place and there is no discharge around the Cox. No blood or clots noted in the Cox bag. Patient is comfortable with plan. - Vital Signs Vital signs: Temp Pulse Resp BP Pulse Ox 98.5 F 109 H 20 120/75 95 11/03/17 17:39 11/03/17 17:39 11/03/17 17:39 11/03/17 17:39 11/03/17 17:39 - Laboratory Result Diagrams: 11/03/17 18:20 11/03/17 18:20 Laboratory results interpreted by me: 11/03/17 11/03/17 11/03/17 18:20 18:20 18:20 RBC 3.51 L Hgb 9.9 L Hct 30.5 L Carbon Dioxide 31 H Glucose 115 H Total Bilirubin < 0.1 L Urine Protein 30 H Urine Blood LARGE H Urine Nitrite POSITIVE H Urine Urobilinogen 4.0 H Discharge - Discharge Clinical Impression: Urethral irritation UTI (urinary tract infection) Qualifiers: Urinary tract infection type: urethritis Qualified Code(s): N34.2 - Other urethritis Condition: Stable Disposition: HOME, SELF-CARE Additional Instructions: URINARY TRACT INFECTION: Your evaluation indicates that you have a urinary tract infection. This is due to germs growing in the bladder. This is a common problem. This infection usually responds quickly to antibiotics. Your antibiotic should be taken exactly as prescribed. Drink plenty of fluids -- three to four quarts a day. Occasionally, a bladder anesthetic will be prescribed to help stop the feeling of urgency until the antibiotic has a chance to clear the infection. This may cause your urine to be dark orange. Certain urine infections require a culture. If the doctor obtained a culture, the results will be back in two days. You should call to see if a change in treatment is needed. A repeat urinalysis after you finish treatment is often recommended. The physician will let you know if further testing is required. Call the doctor if you develop fever, chills, flank pain, inability to urinate, or blood in the urine. ANTIBIOTIC THERAPY: You have been given an antibiotic prescription. It's important that you take all the medication, unless instructed otherwise by your physician. Failure to complete the entire course can result in relapse of your condition. Common side effects of antibiotics include nausea, intestinal cramping, or diarrhea. Women may develop vaginal yeast infections, and babies can get yeast (thrush) in the mouth following the use of antibiotics. Contact your physician if you develop significant side effects from this medication. Allergy to this antibiotic can result in hives, wheezing, faintness, or itching. If symptoms of allergy occur, stop the medication and call the doctor. URINARY ANESTHETIC AGENT: You have been given a medication (Pyridium) for urinary tract discomfort. This medicine numbs the lining of the bladder and urethra, resulting in less pain, burning, and urgency. You may take it as needed, according to instructions. When the symptoms resolve, you can stop this medication (be sure to continue any other medications the doctor has given you). This medicine turns the urine a dark orange. It may stain underwear. Occasionally, it can cause nausea. Return for evaluation if there are any unexpected effects, such as itching, hives, or shortness of breath. FOLLOW-UP CARE: If you have been referred to a physician for follow-up care, call the physician s office for an appointment as you were instructed or within the next two days. If you experience worsening or a significant change in your symptoms, notify the physician immediately or return to the Emergency Department at any time for re-evaluation. Prescriptions: Doxycycline Hyclate 100 mg PO BID #14 capsule Fluconazole [Diflucan] 150 mg PO ONCE PRN #1 tablet PRN Reason: Referrals: JUAN LEONARDO MD [ACTIVE STAFF] - Follow up as needed
[2017-11-03] MEDS ORDERED: CEFTRIAXONE INJ 1000 MG VIAL IM ONE (20:09)
[2017-11-03] MEDS ORDERED: LIDOCAINE 1% INJ-PF (10 MG/ML) 30 ML SDV INFIL ONE (20:09)
[2017-11-03] MEDS ORDERED: IBUPROFEN 800 MG TABLET PO ONE (20:12)
== END 2017-11-03 20:32 | disposition home or self-care (01) ==
LOC: ER 17:34
DX: N34.2 Other urethritis (principal); T83.9XXA Unspecified complication of genitourinary prosthetic device, implant and graft, initial encounter; R33.9 Retention of urine, unspecified; N93.8 Other specified abnormal uterine and vaginal bleeding; Z90.710 Acquired absence of both cervix and uterus
CPT/HCPCS: 99283; 96372; 36415; 85025; 85610; 80053; 81001; A9270; J3490; J0696

== ENCOUNTER → 2017-11-09 | Outpatient (CLI) | payer MEDICARE, MEDICAID ==
--- NOTE | 2017-11-09 16:18 | RADIOLOGY REPORT (SQ) ---
EXAM DESCRIPTION: CYSTOGRAM MINIMUM 3 VIEW COMPLETED DATE/TIME: 11/09/2017 3:45 pm REASON FOR STUDY: RETENTION OF URINE, UNSPECIFIED (R33.9) COMPARISON: None. EXAM PARAMETERS: TECHNIQUE: Infusion of 450 cc Cystograffincontrast into the bladder through a Fole y catheter. Fluoroscopic spot films saved to PAC FLOUROSCOPY TIME: 0.8 MINUTES RADIATION DOSE:N/A LIMITATIONS: NONE LIMITATIONS: NONE FINDINGS: The patient was brought into the fluoroscopy room and placed supine on the fluoroscopy tab le. The patient's existing Cox was then infused with approximately 450 mL of non ionic contrast. Fluoroscopic images demonstrated no evidence of extravasation or bladder wall abnormalities. There wa s no evidence of reflux. Post void images demonstrated a minimal amount of residual contrast with in the bladder. IMPRESSION: Normal cystogram COMMENT: PQRS 6045F: Fluoroscopy time of the procedure is documented in the report. TECHNICAL DOCUMENTATION: JOB ID: [id number] [email or web address]- All Rights Reserved
== END ==
LOC: RAD 14:34
PROVIDERS: ATTEND Obstetrics & Gynecology
DX: R33.9 Retention of urine, unspecified (principal)
CPT/HCPCS: 74430

== ENCOUNTER 2017-12-11 14:08 | Emergency (ER) | payer MEDICARE, MEDICAID ==
[2017-12-11] MEDS ORDERED: KETOROLAC TROMETHAMINE INJ/PF 30 MG/1 ML SDV IV ONE (14:48)
[2017-12-11] MEDS ORDERED: NORMAL SALINE 1000 ML 1,000 ML IV ONE (14:48)
[2017-12-11] MEDS ORDERED: PROMETHAZINE HCL INJ 25 MG/1 ML VIAL IV ONE (14:49)
--- NOTE | 2017-12-11 14:51 | ER Document Report ---
ED Medical Screen (RME) - General Chief Complaint: Nausea/Vomiting/Diarrhea Stated Complaint: VOMITING Time Seen by Provider: 12/11/17 14:48 Mode of Arrival: Wheelchair Information source: Patient TRAVEL OUTSIDE OF THE [place] IN LAST 30 DAYS: No - HPI Patient complains to provider of: N/V/D Onset: Other - pt with on set of migraine VALENZUELA earlier today and has had mulitple episodes of both vomiting and diarrhea - Related Data Allergies/Adverse Reactions: zolpidem tartrate [From Ambien] Allergy (Mild, Verified 12/11/17 14:11) Abnormal behavior adhesive tape Allergy (Verified 12/11/17 14:11) ciprofloxacin [From Cipro] Allergy (Verified 12/11/17 14:11) citalopram [Citalopram] Allergy (Verified 12/11/17 14:11) escitalopram oxalate [From Lexapro] Allergy (Verified 12/11/17 14:11) lamotrigine [From Lamictal] Allergy (Verified 12/11/17 14:11) nitrofurantoin [From Macrobid] Allergy (Verified 12/11/17 14:11) Quinolones Allergy (Verified 12/11/17 14:11) ondansetron HCl [From Zofran] Adverse Reaction (Verified 12/11/17 14:11) CATS Allergy (Intermediate, Uncoded 11/03/17 17:35) SQUASH Allergy (Unknown, Uncoded 11/03/17 17:35) silk tape Allergy (Uncoded 11/03/17 17:35) Past Medical History - Social History Chew tobacco use (# tins/day): No Frequency of alcohol use: None Drug Abuse: None - Past Medical History Cardiac Medical History: Reports: Hx Hypertension - ON MEDS Pulmonary Medical History: Reports: Hx Asthma - INHALERS, Hx Pneumonia - AUG 2017 Neurological Medical History: Reports: Hx Migraine Endocrine Medical History: Reports: Hx Diabetes Mellitus Type 2 Renal/ Medical History: Reports: Hx Ovarian Cysts. Denies: Hx Peritoneal Dialysis GI Medical History: Reports: Hx Gastroesophageal Reflux Disease Musculoskeltal Medical History: Reports Hx Arthritis - KNEES, DJD, Reports Hx Musculoskeletal Trauma Psychiatric Medical History: Reports: Hx Anxiety, Hx Attention Deficit Hyperactivity Disorder, Hx Bipolar Disorder, Hx Depression, Hx Post Traumatic Stress Disorder Past Surgical History: Reports: Hx Abdominal Surgery - LAPARASCOPY X2, Hx Section - x2, Hx Gynecologic Surgery - 5 D&C (MISCARRIAGES), Hx Hysterectomy, Hx Oral Surgery - Jaw for TMJ and wisdom teeth, Hx Tubal Ligation - Immunizations Immunizations up to date: Yes Hx Diphtheria, Pertussis, Tetanus Vaccination: Yes - UTD History of Influenza Vaccine for 08/2017 - 01/2018 Season: No Physical Exam - Vital signs Vitals: Temp Pulse Resp BP Pulse Ox 98.9 F 105 H 18 130/52 H 99 12/11/17 14:13 12/11/17 14:13 12/11/17 14:13 12/11/17 14:13 12/11/17 14:13 Course - Vital Signs Vital signs: Temp Pulse Resp BP Pulse Ox 98.9 F 105 H 18 130/52 H 99 12/11/17 14:13 12/11/17 14:13 12/11/17 14:37 12/11/17 14:13 12/11/17 14:13
[2017-12-11] MEDS ORDERED: DIPHENHYDRAMINE HCL 50 MG/ML VIAL IV ONE (16:50)
[2017-12-11] MEDS ORDERED: PROCHLORPERAZINE EDISYLATE INJ 10 MG/2 ML VIAL IV ONE (16:50)
--- NOTE | 2017-12-11 16:50 | ER Document Report ---
ED General - General Chief Complaint: Nausea/Vomiting/Diarrhea Stated Complaint: VOMITING Time Seen by Provider: 12/11/17 14:48 Mode of Arrival: Wheelchair Information source: Patient Notes: 32-year-old female history of diabetes presents with complaints of migraine headache nausea vomiting diarrhea. Patient notes she has had 3 episodes of vomiting 5 episodes of diarrhea over the past few days, patient denies any fevers TRAVEL OUTSIDE OF THE [place] IN LAST 30 DAYS: No - HPI Onset: Last week Onset/Duration: Persistent Quality of pain: No pain Severity: Mild Pain Level: 1 Associated symptoms: Chills, Diarrhea, Headache, Nausea, Vomiting Exacerbated by: Denies Relieved by: Denies Similar symptoms previously: Yes Recently seen / treated by doctor: Yes - Related Data Allergies/Adverse Reactions: zolpidem tartrate [From Ambien] Allergy (Mild, Verified 12/11/17 14:11) Abnormal behavior adhesive tape Allergy (Verified 12/11/17 14:11) ciprofloxacin [From Cipro] Allergy (Verified 12/11/17 14:11) citalopram [Citalopram] Allergy (Verified 12/11/17 14:11) escitalopram oxalate [From Lexapro] Allergy (Verified 12/11/17 14:11) lamotrigine [From Lamictal] Allergy (Verified 12/11/17 14:11) nitrofurantoin [From Macrobid] Allergy (Verified 12/11/17 14:11) Quinolones Allergy (Verified 12/11/17 14:11) ondansetron HCl [From Zofran] Adverse Reaction (Verified 12/11/17 14:11) CATS Allergy (Intermediate, Uncoded 11/03/17 17:35) SQUASH Allergy (Unknown, Uncoded 11/03/17 17:35) silk tape Allergy (Uncoded 11/03/17 17:35) Past Medical History - General Information source: Patient - Social History Smoking Status: Never Smoker Cigarette use (# per day): No Chew tobacco use (# tins/day): No Smoking Education Provided: No Frequency of alcohol use: None Drug Abuse: None Family History: Arthritis, CAD, CVA, DM, Hyperlipidemia, Hypertension, Malignancy, Other Patient has suicidal ideation: No Patient has homicidal ideation: No - Past Medical History Cardiac Medical History: Reports: Hx Hypertension - ON MEDS Pulmonary Medical History: Reports: Hx Asthma - INHALERS, Hx Pneumonia - AUG 2017 Neurological Medical History: Reports: Hx Migraine Endocrine Medical History: Reports: Hx Diabetes Mellitus Type 2 Renal/ Medical History: Reports: Hx Ovarian Cysts. Denies: Hx Peritoneal Dialysis GI Medical History: Reports: Hx Gastroesophageal Reflux Disease Musculoskeltal Medical History: Reports Hx Arthritis - KNEES, DJD, Reports Hx Musculoskeletal Trauma Psychiatric Medical History: Reports: Hx Anxiety, Hx Attention Deficit Hyperactivity Disorder, Hx Bipolar Disorder, Hx Depression, Hx Post Traumatic Stress Disorder Past Surgical History: Reports: Hx Abdominal Surgery - LAPARASCOPY X2, Hx Section - x2, Hx Gynecologic Surgery - 5 D&C (MISCARRIAGES), Hx Hysterectomy, Hx Oral Surgery - Jaw for TMJ and wisdom teeth, Hx Tubal Ligation - Immunizations Immunizations up to date: Yes Hx Diphtheria, Pertussis, Tetanus Vaccination: Yes - UTD Hx Pneumococcal Vaccination: 11/13/13 Review of Systems - Review of Systems Notes: REVIEW OF SYSTEMS: CONSTITUTIONAL : chills EENT: Denies eye, ear, throat, or mouth pain or symptoms. Denies nasal or sinus congestion or discharge. Denies throat, tongue, or mouth swelling or difficulty swallowing. CARDIOVASCULAR: Denies chest pain. Denies palpitations or racing or irregular heart beat. Denies ankle edema. RESPIRATORY: Denies cough, cold, or chest congestion. Denies shortness of breath, difficulty breathing, or wheezing. GASTROINTESTINAL: admits to nausea vomiting diarrhea GENITOURINARY: Denies difficulty urinating, painful urination, burning, frequency, blood in urine, or discharge. MUSCULOSKELETAL: Denies back or neck pain or stiffness. Denies joint pain or swelling. SKIN: Denies rash, lesions or sores. HEMATOLOGIC : Denies easy bruising or bleeding. LYMPHATIC: Denies swollen, enlarged glands. NEUROLOGICAL: admits to headache PSYCHIATRIC: Denies anxiety or stress. Denies depression, suicidal ideation, or homicidal ideation. ALL OTHER SYSTEMS REVIEWED AND NEGATIVE. Dictation was performed using [employer] voice recognition software PHYSICAL EXAMINATION: GENERAL: Well-appearing, well-nourished and in no acute distress. HEAD: Atraumatic, normocephalic. EYES: Pupils equal round and reactive to light, extraocular movements intact, sclera anicteric, conjunctiva are normal. ENT: Nares patent, oropharynx clear without exudates. Moist mucous membranes. NECK: Normal range of motion, supple without lymphadenopathy LUNGS: Breath sounds clear to auscultation bilaterally and equal. No wheezes rales or rhonchi. HEART: Regular rate and rhythm without murmurs ABDOMEN: Soft, nontender, nondistended abdomen. No guarding, no rebound. No masses appreciated. Musculoskeletal: Normal range of motion, no pitting or edema. No cyanosis. NEUROLOGICAL: Cranial nerves grossly intact. Normal speech, normal gait. Normal sensory, motor exams PSYCH: Normal mood, normal affect. SKIN: Warm, Dry, normal turgor, no rashes or lesions noted. Physical Exam - Vital signs Vitals: Temp Pulse Resp BP Pulse Ox 98.9 F 105 H 18 130/52 H 99 12/11/17 14:13 12/11/17 14:13 12/11/17 14:13 12/11/17 14:13 12/11/17 14:13 Course - Re-evaluation Re-evalutation: 12/11/17 16:49 Patient overall looks extremely well has been given IV fluids lab work are pending 12/11/17 17:22 Lab work notes no significant abnormality. Patient denies any other complaints symptoms have improved with Benadryl Compazine After performing a Medical Screening Examination, I estimate there is LOW risk for ACUTE APPENDICITIS, BOWEL OBSTRUCTION, ACUTE CHOLECYSTITIS, PERFORATED DIVERTICULITIS, INCARCERATED HERNIA, PANCREATITIS, PELVIC INFLAMMATORY DISEASE, PERFORATED ULCER, ECTOPIC , or TUBO-OVARIAN ABSCESS, thus I consider the discharge disposition reasonable. Also, there is no evidence or peritonitis , sepsis, or toxicity. I have reevaluated this patient multiple times and no significant life threatening changes are noted. The patient and I have discussed the diagnosis and risks, and we agree with discharging home with close follow-up with the understanding that symptoms and presentations can change. We also discussed returning to the Emergency Department immediately if new or worsening symptoms occur. We have discussed the symptoms which are most concerning (e.g., bloody stool, fever, changing or worsening pain, vomiting) that necessitate immediate return. - Vital Signs Vital signs: Temp Pulse Resp BP Pulse Ox 98.9 F 105 H 18 130/52 H 99 12/11/17 14:13 12/11/17 14:13 12/11/17 14:37 12/11/17 14:13 12/11/17 14:13 - Laboratory Result Diagrams: 12/11/17 16:41 12/11/17 16:41 Laboratory results interpreted by me: 12/11/17 12/11/17 16:41 16:41 Hgb 10.7 L Hct 33.8 L MCHC 31.7 L RDW 14.8 H BUN 5 L Creatinine 0.48 L Discharge - Discharge Clinical Impression: Nausea vomiting and diarrhea Headache, migraine Qualifiers: Migraine type: unspecified Status migrainosus presence: without status migrainosus Intractability: not intractable Qualified Code(s): G43.909 - Migraine, unspecified, not intractable, without status migrainosus Condition: Stable Disposition: HOME, SELF-CARE Instructions: Diarrhea, Nonspecific ([facility]) Prescriptions: Metoclopramide HCl [Reglan 10 mg Tablet] 1 - 2 tab PO ASDIR PRN #10 tablet PRN Reason: Referrals: DANIELA FIELDS [employer]ED [employer] FARMER [Primary Care Provider] - Follow up tomorrow
[2017-12-11 16:58] LABS: ABSOLUTE BASOPHILS # (AUTO) 0.1 10^3/uL (0.0-0.2); ABSOLUTE EOSINOPHILS # (AUTO) 0.4 10^3/uL (0.0-0.6); ABSOLUTE LYMPHOCYTES (AUTO) 1.7 10^3/uL (0.5-4.7); ABSOLUTE MONOCYTES (AUTO) 0.4 10^3/uL (0.1-1.4); ABSOLUTE NEUT (AUTO) 5.5 10^3/uL (1.7-8.2); BASOPHILS % (AUTO) 1.2 % (0-2); EOSINOPHILS % (AUTO) 4.4 % (0-6); HEMATOCRIT 33.8 % (36.0-47.0); HEMOGLOBIN 10.7 g/dL (12.0-15.5); LYMPHOCYTES % (AUTO) 21.2 % (13-45); MEAN CORPUSCULAR HEMOGLOBIN 27.4 pg (27.0-33.4); MEAN CORPUSCULAR HGB CONC 31.7 g/dL (32.0-36.0); MEAN CORPUSCULAR VOLUME 87 fl (80-97); MONOCYTES % (AUTO) 4.9 % (3-13); RED BLOOD COUNT 3.91 10^6/uL (3.72-5.28); RED CELL DISTRIBUTION WIDTH 14.8 % (11.5-14.0); SEGMENTED NEUTROPHILS % (AUTO) 68.3 % (42-78); TOTAL CELLS COUNTED % (AUTO) 100 %
[2017-12-11 17:12] LABS: PLATELET COUNT 225 10^3/uL (150-450)
[2017-12-11 17:17] LABS: ALANINE AMINOTRANSFERASE 29 U/L (9-52); ALBUMIN 3.7 g/dL (3.5-5.0); ALKALINE PHOSPHATASE 52 U/L (38-126); ANION GAP 9 (5-19); ASPARTATE AMINO TRANSFERASE 24 U/L (14-36); BILIRUBIN,DIRECT 0.2 mg/dL (0.0-0.4); BILIRUBIN,TOTAL 0.3 mg/dL (0.2-1.3); BLOOD UREA NITROGEN 5 mg/dL (7-20); CALCIUM 8.5 mg/dL (8.4-10.2); CARBON DIOXIDE 23 mmol/L (22-30); CHLORIDE 107 mmol/L (98-107); GLUCOSE 89 mg/dL (75-110); POTASSIUM 3.8 mmol/L (3.6-5.0); SODIUM 139.3 mmol/L (137-145); TOTAL PROTEIN 6.4 g/dL (6.3-8.2)
[2017-12-11 18:38] VITALS: BP 129/74
== END 2017-12-11 18:35 | disposition home or self-care (01) ==
LOC: ER 14:08
DX: G43.909 Migraine, unspecified, not intractable, without status migrainosus (principal); R11.2 Nausea with vomiting, unspecified; R19.7 Diarrhea, unspecified
CPT/HCPCS: 99284; 96361; 96374; 96375; 36415; 82962; 85025; 80053; J1200; J1885; J0780; J2550; J7030